=== PATIENT | female | born 1970 | race Caucasian/White ===

== ENCOUNTER 2022-07-19 12:38 | Emergency (ER) | payer OTHER, SELFPAY ==
[2022-07-19] VITALS (31 sets, daily range): BP systolic 106–189; BP diastolic 63–114; PULSE 52–70; TEMP 36.6; O2SAT 95–100; BMI 20.5
--- NOTE | 2022-07-19 13:37 | ED.CHESTPAIN ---
HPI - Chest Pain General Chief Complaint: Chest Pain Stated Complaint: Chest tightness/nausea Time Seen by Provider: 07/19/22 13:02 History of Present Illness HPI narrative: This 51-year-old female comes in reporting intermittent chest discomfort over the past week or so. She states that this pain is reproducible when taking a deep breath but also when exerting herself. She reports some associated nausea, lightheadedness. She does not report shortness of breath or diaphoresis. Prior to this she had good exercise tolerance. She does have a history of leukemia and underwent a bone marrow transplant at the beginning of this year about 10 months ago. She states that her pain is 8/10 in severity and is located in sternal area of her anterior chest. She also has some back pain. She did go to a chiropractor last week and receive some improvement with miss on edge in treatment of her mid upper back. She states that today this pain is been persistent but prior to today she was able to lay down and rest and her symptoms would resolve. Related Data Home Medications Medication Instructions Recorded Confirmed acyclovir 800 mg tablet mg 07/19/22 eltrombopag 50 mg tablet (Promacta) mg 07/19/22 fluoxetine 40 mg capsule mg 07/19/22 trazodone 50 mg tablet mg 07/19/22 Allergies Allergy/AdvReac Type Severity Reaction Status Date / Time codeine Allergy Unknown Verified 07/19/22 15:28 hydroxyzine [From Vistaril] Allergy Unknown Verified 07/19/22 15:28 meperidine [From Demerol] Allergy Unknown Verified 07/19/22 15:28 Review of Systems Status of ROS Reports: 10 or more systems reviewed and unremarkable except as noted in History and below Narrative Constitutional: No fevers, no weight gain or loss. Eyes: No discharge. No vision changes. HENT: No congestion, no sore throat, no ear pain. Cardiovascular: No palpitations. Chest pain as described above. Respiratory: No shortness of breath, no wheezes, no cough. Gastrointestinal: No abdominal pain, no vomiting, no diarrhea. Genitourinary: No dysuria, no hematuria. Musculoskeletal: Normal range of motion. She reports some pain in her upper mid back. Skin: No rashes, no pruritis. Neurological: No dizziness, weakness, sensory change, speech change. Endo/Heme/Allergies: No bruising or bleeding. No polydipsia. Pysch: no suicidality, no anxiety, no insomnia. All other systems reviewed and are negative. Exam Narrative Exam Narrative: Constitutional: Well-developed, well-nourished, no acute distress. HEENT: Normocephalic, atraumatic. Neck: Normal range of motion. Nontender. Supple. Heart: Regular. No murmurs. Normal rate. Intact distal pulses. Lungs: Clear to auscultation. No wheezes, rhonchi, or rales. Abdomen: Normal bowel sounds. Nontender. No rebound tenderness. Genitalia: Deferred. Back: No midline tenderness. Normal range of motion. Extremities: Normal range of motion. No injury. Skin: Intact. No rash. Warm. No erythema or pallor. Neurologic: No altered sensation. No weakness. Alert and oriented. Psychiatric: No suicidality. No anxiety or depression. No insomnia. Nursing notes and vitals signs are reviewed. Const Vital Signs, click to edit/add: Vital Signs - 24 hr 07/19/22 13:00 07/19/22 13:17 07/19/22 13:19 Temperature 97.8 F Pulse Rate 62 70 Pulse Rate [Right Pulse Oximeter] 63 Blood Pressure 159/87 H Blood Pressure [Right Upper Arm] 164/93 H Pulse Oximetry 100 98 99 Oxygen Delivery Method Room Air 07/19/22 13:45 07/19/22 13:20 07/19/22 13:30 Temperature Pulse Rate 60 64 Pulse Rate [Right Pulse Oximeter] Blood Pressure Blood Pressure [Right Upper Arm] Pulse Oximetry 98 100 98 Oxygen Delivery Method 07/19/22 13:32 07/19/22 14:00 07/19/22 14:02 Temperature Pulse Rate 62 64 65 Pulse Rate [Right Pulse Oximeter] Blood Pressure 163/89 H 154/88 H Blood Pressure [Right Upper Arm] Pulse Oximetry 98 98 97 Oxygen Delivery Method 07/19/22 14:03 07/19/22 14:30 07/19/22 14:32 Temperature Pulse Rate 68 64 67 Pulse Rate [Right Pulse Oximeter] Blood Pressure 156/87 H Blood Pressure [Right Upper Arm] Pulse Oximetry 97 98 96 Oxygen Delivery Method 07/19/22 15:00 07/19/22 15:02 07/19/22 15:06 Temperature Pulse Rate 52 L 59 L Pulse Rate [Right Pulse Oximeter] Blood Pressure 106/63 Blood Pressure [Right Upper Arm] Pulse Oximetry 96 96 Oxygen Delivery Method 07/19/22 15:30 07/19/22 15:34 07/19/22 15:54 Temperature Pulse Rate 68 70 66 Pulse Rate [Right Pulse Oximeter] Blood Pressure 189/106 H Blood Pressure [Right Upper Arm] Pulse Oximetry 100 97 97 Oxygen Delivery Method 07/19/22 16:00 07/19/22 16:02 07/19/22 16:30 Temperature Pulse Rate 67 68 59 L Pulse Rate [Right Pulse Oximeter] Blood Pressure 171/114 H Blood Pressure [Right Upper Arm] Pulse Oximetry 97 98 95 Oxygen Delivery Method Room Air 07/19/22 16:32 Temperature Pulse Rate 60 Pulse Rate [Right Pulse Oximeter] Blood Pressure 152/93 H Blood Pressure [Right Upper Arm] Pulse Oximetry 97 Oxygen Delivery Method Course Vital Signs Vital signs: Initial Vital Signs Temperature 97.8 F 07/19/22 13:00 Temperature Source Temporal Artery Scan 07/19/22 13:00 Pulse Rate 63 07/19/22 13:00 Blood Pressure 164/93 H 07/19/22 13:00 Blood Pressure Mean 116 07/19/22 13:00 Blood Pressure Position Sitting 07/19/22 13:00 Pulse Oximetry 100 07/19/22 13:00 Oxygen Delivery Method 07/19/22 13:00 Vital Signs Temperature 97.8 F 07/19/22 13:00 Pulse Rate 63 07/19/22 13:00 Blood Pressure 164/93 H 07/19/22 13:00 Pulse Oximetry 100 07/19/22 13:00 Oxygen Delivery Method 07/19/22 13:00 Temperature 97.8 F 07/19/22 13:00 Pulse Rate 60 07/19/22 16:32 Blood Pressure 152/93 H 07/19/22 16:32 Pulse Oximetry 97 07/19/22 16:32 Oxygen Delivery Method 07/19/22 16:02 MDM - Chest Pain MDM Narrative Medical decision making narrative: This patient comes in with severe chest pain that she rates that 8/10 in severity. She continues to have pain despite remaining still. In the past week she states that he was exercise induced but now today activity does not seem to make any difference. Her EKG returns with no sign of ST or T-wave abnormalities. Her initial troponin point of care returned elevated at 0.11. A repeat troponin returns at 0.13. Patient does have some back pain and there was concern for possible dissection or aneurysm. Additionally her D-dimer was elevated at 1.68. CT imaging of the chest abdomen and pelvis with contrast shows no evidence of pulmonary embolism, dissection, or aneurysm. The patient did receive 4 baby aspirins soon after arrival here. It was after clearance with CT imaging that she then received heparin according to ACS protocol for a non STEMI. She received a 4 mg morphine dose intravenously which did not provide much relief to her pain. This was repeated and again there was not much relief. Her blood pressure remained solid so a 3rd attempt at pain relief was made by giving Dilaudid 0.5 mg. Her blood pressure and decreased in to the 100-110 range after receiving this. Her blood pressure has improved now after some time and she then received an oral dose of nitroglycerin. Multiple calls in the surrounding area were made to arrange for transfer of this patient. There were no beds available except for [facility]. She is accepted for transfer there. Dr. Richey is the accepting physician. Lab Data Labs: Lab Results 07/19/22 07/19/22 07/19/22 Range/Units 13:35 13:48 13:48 WBC 3.73 L (4.50-11.00) K/uL RBC 3.20 L (4.00-5.20) m/uL Hgb 11.9 L (12.0-16.0) gm/dL Hct 36.5 (33.0-51.0) % MCV 114 H (80-100) fL MCH 37 H (26-34) pg MCHC 33 (32-36) gm/dL RDW Coeff of Andreas 14.3 (11.5-15.5) % Plt Count 71 L (140-440) K/uL Neut % (Auto) 68.2 (42.0-72.0) % Lymph % (Auto) 20.1 (20-44) % [place] % (Auto) 8.0 (0.0-11.0) % Eos % (Auto) 2.9 (0.0-7.0) % Baso % (Auto) 0.5 (0.0-3.0) % Neut # (Auto) 2.50 (1.7-7.0) K/uL Lymph # (Auto) 0.70 L (0.90-2.90) K/uL [place] # (Auto) 0.30 (0.00-0.90) K/UL Eos # (Auto) 0.10 (0.00-0.50) K/uL Baso # (Auto) 0.00 (0.00-0.30) K/uL Abs Immat Gran (auto) 0.00 (0.00-0.30) K/uL Imm/Tot Granulo (auto) 0.3 % INR (0.91-1.10) APTT (23-33) Seconds D-Dimer Quant (PE/DVT) 1.68 H (0.00-0.50) ug/ml Sodium (135-149) mmol/L Potassium (3.6-5.1) mmol/L Chloride (96-114) mmol/L Carbon Dioxide (20-32) mmol/L BUN (7-30) mg/dL Creatinine (0.5-1.5) mg/dL Estimated Creat Clear Estimated GFR ml/min Glucose (60-115) mg/dL Calcium (8.4-10.6) mg/dL Troponin I (0.01-0.04) ng/mL POC Troponin I 0.11 H (0.01-0.04) ng/ml 07/19/22 07/19/22 07/19/22 Range/Units 13:48 13:48 13:48 WBC (4.50-11.00) K/uL RBC (4.00-5.20) m/uL Hgb (12.0-16.0) gm/dL Hct (33.0-51.0) % MCV (80-100) fL MCH (26-34) pg MCHC (32-36) gm/dL RDW Coeff of Andreas (11.5-15.5) % Plt Count (140-440) K/uL Neut % (Auto) (42.0-72.0) % Lymph % (Auto) (20-44) % [place] % (Auto) (0.0-11.0) % Eos % (Auto) (0.0-7.0) % Baso % (Auto) (0.0-3.0) % Neut # (Auto) (1.7-7.0) K/uL Lymph # (Auto) (0.90-2.90) K/uL [place] # (Auto) (0.00-0.90) K/UL Eos # (Auto) (0.00-0.50) K/uL Baso # (Auto) (0.00-0.30) K/uL Abs Immat Gran (auto) (0.00-0.30) K/uL Imm/Tot Granulo (auto) % INR 0.81 L (0.91-1.10) APTT 34 H (23-33) Seconds D-Dimer Quant (PE/DVT) (0.00-0.50) ug/ml Sodium 138 (135-149) mmol/L Potassium 4.1 (3.6-5.1) mmol/L Chloride 103 (96-114) mmol/L Carbon Dioxide 26 (20-32) mmol/L BUN 14 (7-30) mg/dL Creatinine 0.7 (0.5-1.5) mg/dL Estimated Creat Clear 85.49 Estimated GFR 104 ml/min Glucose 109 (60-115) mg/dL Calcium 8.6 (8.4-10.6) mg/dL Troponin I 0.13 H* (0.01-0.04) ng/mL POC Troponin I (0.01-0.04) ng/ml Imaging Data CT Chest, Abd, Pelvis w contrast: Radiologist's impression: 1. No evidence of aortic aneurysm or dissection. 2. Subtle nodular ground-glass opacities scattered throughout the right lung and left lower lobe are likely infectious or inflammatory. Trace bilateral pleural effusions. 3. Two noncalcified pulmonary nodules measuring up to 4 mm. Please see follow-up guidelines below. 4. Distended gallbladder with pericholecystic fluid suggesting inflammation. Mild biliary dilation. Recommend further evaluation with right upper quadrant ultrasound. 5. Moderate amount of free fluid in the pelvis. ECG Data Attestation: I personally reviewed and interpreted this ECG as follows: Interpretation: Normal sinus rhythm. Rate is 60 beats per minute. There are no specific ST or T-wave abnormalities. Repeat EKG shows normal sinus rhythm with a rate of 67 beats per minute. There are no ST or T-wave abnormalities. Critical Care Time Critical Care Time Total Critical Care Time in Minutes: 45 Discharge Plan Discharge Clinical Impression: Acute non-ST elevation myocardial infarction (NSTEMI) Patient Disposition: Xfer Other Condition: Unchanged Prescriptions: No Action fluoxetine 40 mg capsule trazodone 50 mg tablet acyclovir 800 mg tablet Label Comments: TAKE 1 TABLET BY MOUTH FIVE TIMES DAILY. HOLD WHILE ON VALGANCYCLOVIR. Promacta 50 mg tablet Follow Up/Referrals: Provider,Not a Local [Primary Care Provider] - Stand Alone Forms: [facility] Info Instructions Procedures Ultrasound Aorta exam #1: Anatomical areas examined: abdominal aorta to bifurcation Impression: negative exam Ultrasound Cardiac exam #1: Anatomical areas examined: parasternal long and parasternal short Indications: chest pain Exam type: limited transthoracic echocardiogram Impression: negative exam
[2022-07-19] MEDS: ASPIRIN 81 MG TAB.CHEW 324 MG PO (13:41)
[2022-07-19] MEDS: ONDANSETRON 2 MG/ML inj 4 MG IVP (13:52)
[2022-07-19] MEDS: MORPHINE 4 MG/ML INJ IVP ×2 (13:55→14:24)
[2022-07-19 14:05] LABS: Troponin, Point-of-Care* 0.11 ng/ml (0.01-0.04)
[2022-07-19 14:07] LABS: Basophils Percent Auto 0.5 % (0.0-3.0); Eosinophils Percent Auto 2.9 % (0.0-7.0); Hematocrit 36.5 % (33.0-51.0); Hemoglobin* 11.9 gm/dL (12.0-16.0); Immature Granulocytes Pct Auto 0.3 %; Lymphocytes Percent Auto 20.1 % (20-44); Mean Corpuscular HGB Conc 33 gm/dL (32-36); Mean Corpuscular Hemoglobin 37 pg (26-34); Mean Corpuscular Volume 114 fL (80-100); Neutrophils Percent Auto 68.2 % (42.0-72.0); Platelet Count* 71 K/uL (140-440); RDW Coefficient of Variation % 14.3 % (11.5-15.5); White Blood Count* 3.73 K/uL (4.50-11.00)
[2022-07-19 14:18] LABS: Slide Review Reflex No
--- NOTE | 2022-07-19 14:19 | CRLHL7_ITS ---
For Patients: As a result of the 21st Century Cures Act, medical imaging exams and procedure reports are released immediately into your electronic medical record. You may view this report before your referring provider. If you have questions, please contact your health care provider. INDICATION: Chest pain, elevated troponin, family history of aneurysm. COMPARISON: None. TECHNIQUE: CT of the chest without IV contrast followed by CTA of the chest, abdomen, and pelvis with 95 cc of Isovue 370 IV contrast. Coronal and sagittal reconstructions. 3D post processing was performed. FINDINGS: Chest: Normal heart size. Conventional three vessel aortic arch. The great vessels are widely patent. The thoracic aorta is normal in caliber without evidence of dissection, intramural hematoma, or penetrating atheromatous ulcer. Moderate coronary artery calcifications. Normal caliber central pulmonary arteries. No large central pulmonary embolism. No pericardial effusion. No thoracic lymphadenopathy. Bilateral thyroid nodules measuring up to 1.1 cm in size on the right. Trace bilateral pleural effusions and bibasilar atelectasis. There are subtle nodular ground-glass opacities scattered throughout the right lung and left lower lobe which are likely infectious or inflammatory. No pneumothorax. Normal variant azygos fissure. 3 mm noncalcified pulmonary nodule in the posterior left lower lobe (series 5, image 53). 4 mm noncalcified pulmonary nodule in the anterior left lower lobe (image 69). No central endobronchial lesion or bronchial wall thickening. The bones are unremarkable. Abdomen/Pelvis: The abdominal aorta and bilateral iliac arteries are normal in caliber without evidence of dissection. The celiac artery, superior mesenteric artery, inferior mesenteric artery, and bilateral renal arteries are patent without significant stenosis. Mild to moderate calcified atheromatous plaque. Evaluation of the solid organs is somewhat limited by arterial phase of contrast. The liver, spleen, pancreas, and adrenal glands are negative. Distended gallbladder. No calcified gallstones are seen. There appears to be pericholecystic edema. Mild intra and extrahepatic bile duct dilation. Symmetric enhancement of the kidneys. No hydronephrosis or ureteral dilation. No obstructing urinary calculi identified. Decompressed urinary bladder. Unremarkable uterus. No adnexal mass. Postoperative changes of the stomach. No small bowel dilatation. Moderate amount of stool throughout the colon. The appendix is not identified. Moderate amount of free fluid in the pelvis. No intraperitoneal free air. No lymphadenopathy. The bones are unremarkable. IMPRESSION: 1. No evidence of aortic aneurysm or dissection. 2. Subtle nodular ground-glass opacities scattered throughout the right lung and left lower lobe are likely infectious or inflammatory. Trace bilateral pleural effusions. 3. Two noncalcified pulmonary nodules measuring up to 4 mm. Please see follow-up guidelines below. 4. Distended gallbladder with pericholecystic fluid suggesting inflammation. Mild biliary dilation. Recommend further evaluation with right upper quadrant ultrasound. 5. Moderate amount of free fluid in the pelvis. [employer] GUIDELINES - SOLID NODULES: : MULTIPLE LOW RISK - nodule less than 6 mm: No routine follow-up. - nodule 6-8 mm: CT at 3-6 months, then consider CT at 18-24 months. - nodule greater than 8 mm: CT at 3-6 months, then consider CT at 18-24 months. MULTIPLE HIGH RISK - nodule less than 6 mm: Optional CT at 12 months. - nodule 6-8 mm: CT at 3-6 months, then at 18-24 months. - nodule greater than 8 mm: CT at 3-6 months, then at 18-24 months. Please note that all CT scans at this facility use dose modulation, iterative reconstruction, and/or weight-based dosing when appropriate to reduce radiation dose to as low as reasonably achievable. Dictated by Kyung Parsons MD @ 07/19/2022 4:44:25 PM (Electronically Signed)
[2022-07-19 14:21] LABS: Chloride* 103 mmol/L (96-114); Potassium* 4.1 mmol/L (3.6-5.1); Sodium* 138 mmol/L (135-149)
[2022-07-19 14:24] LABS: Blood Urea Nitrogen* 14 mg/dL (7-30); Carbon Dioxide* 26 mmol/L (20-32); Creatinine* 0.7 mg/dL (0.5-1.5); Est. Creatinine Clearance* 85.49; Estimated Glomerular Filt Rate 104 ml/min
[2022-07-19 14:25] LABS: Calcium* 8.6 mg/dL (8.4-10.6); Glucose* 109 mg/dL (60-115)
[2022-07-19 14:34] LABS: D Dimer Quantitative* 1.68 ug/ml (0.00-0.50)
[2022-07-19] MEDS: HYDROmorphone 0.5 mg/0.5 ml inj IVP (14:52)
--- NOTE | 2022-07-19 15:14 | ED.NURSE ---
Report from Ishmael Snyder RN. I will now assume care of patient. Patient to radiology for CT scan via wheelchair. Will repeat EKG when she returns.
[2022-07-19 15:42] LABS: Troponin I* 0.13 ng/mL (0.01-0.04)
[2022-07-19 17:38] LABS: INR 0.81 (0.91-1.10); Prothrombin Time 11.7 Seconds
[2022-07-19 17:39] LABS: Partial Thromboplastin Time* 34 Seconds (23-33)
[2022-07-19] MEDS: HEPARIN 5,000 UNIT/0.5 ML INJ 3500 UNIT IVP (17:40)
[2022-07-19] MEDS: HEPARIN 25,000 UNIT/500 ML BAG 14 UNIT IV (17:41)
--- NOTE | 2022-07-19 17:57 | ED.NURSE ---
Report to DEANGELO Mack at [facility], Hossein CHANDLER (p [phone]). Facesheet faxed to [phone] as requested. EMS paged and to send ambulance now. Accepting , Dr. Dorantes, Bed #522.
[2022-07-19 18:01] LABS: SARS PCR* Negative SARS-CoV-2 (Negative)
== END 2022-07-19 18:33 | disposition other institution (70) ==
PROVIDERS: Emergency Provider Emergency Medicine Emergency Medical Services
DX: I21.4 Non-ST elevation (NSTEMI) myocardial infarction (principal)
CPT/HCPCS: 36415; 71270; 74177; 76604; 76705; 80048; 84484; 85025; 85379; 85610; 85730; 87635; 93005; 93308; 94761; 96361; 96374; 96375; 96376; 99285; 99291; A9270; J1170; J1644; J2270; J2405; Q9967

== ENCOUNTER 2022-07-19 18:21 | Outpatient (CLI) | payer OTHER, SELFPAY | END 2022-07-19 18:22 | disposition home or self-care (01) | LOC: AMB 07-29 08:03 | PROVIDERS: Visit Provider Internal Medicine | DX: I21.4 Non-ST elevation (NSTEMI) myocardial infarction (principal) | CPT/HCPCS: A0425; A0426 ==

== ENCOUNTER 2022-12-28 06:19 | Day surgery (SDC) | payer OTHER, SELFPAY ==
[2022-12-28] VITALS (8 sets, daily range): BP systolic 107–120; BP diastolic 58–74; PULSE 69–79; RESP 16; TEMP 37.1–37.4; O2SAT 96–100; BMI 20.9
[2022-12-28] MEDS: BUPIVACAINE 0.5% 30 ML INJECTION (07:00)
[2022-12-28] MEDS: ETHYL CHLORIDE 1 APPLICATION 1 APPLIC TOPICAL (07:00)
[2022-12-28] MEDS: BETAMETHASONE SOD PHOS/ACETATE 6 MG/ML ML INJECTION (07:00)
--- NOTE | 2022-12-28 07:35 | P.ORPRC_ITS ---
Procedure Note Date of procedure: 12/28/22 Procedure: PREOPERATIVE DIAGNOSIS: 1. Right thumb flexor tenosynovitis - trigger finger 2. Right de Quervain tenosynovitis POSTOPERATIVE DIAGNOSIS: 1. Right thumb flexor tenosynovitis - trigger finger 2. Right de Quervain tenosynovitis PROCEDURE: 1. Right thumb flexor tendon sheath open release (A1 dia) 2. Right DeQuervain's betamethasone cortisone injection (6 mg) SURGEON: Samir Sanchez MD. PHOTO GRAPHICS LIBRARIAN: Dennis Ding PA-C ANESTHESIA: Local anesthetic 4ml via 50:50 mixture of 1% Lidocaine with epi and 0.5% marcaine plain EBL: 2mL IMPLANTS: None TOURNIQUET: None COMPLICATIONS: None evident INDICATIONS: The patient is a pleasant 52-year-old female who has experienced right thumb catching/triggering for number of months. It has progressively gotten worse. Given the failure of nonoperative management, and how this affects daily life, surgery was recommended. DESCRIPTION OF PROCEDURE: Following a thorough discussion of risks, benefits, and alternatives consent was obtained and the operative digit(s) was marked. The patient was brought to the operating room and placed supine on the operating table. Local anesthesia induction was undertaken in preop holding. No antibiotics were administered as this was planned to be a local case only. Proper time-out was performed identifying proper patient, site, and procedure. The operative extremity was prepped and draped in the appropriate sterile fas hion using ChloraPrep. A incision was made on the palmar surface of the hand overlying the MCP joint region of the appropriate digit(s) respecting the palmar creases being cautious not to cross these perpendicularly. Sharp incision through the skin, and blunt dissection through subcutaneous tissue allowing protection of crossing neurologic structures. The A1 dia was visualized directly. It was incised sharply with a 15 blade. It was released completely from its distal to proximal extent under direct visualization. The tendon was inspected and found to be mildly striated consistent with some friction. Otherwise, it was intact. The tendon was removed out of the wound, and further inspected. The patient was asked to manually flex and extend the digits and showed no further catching. The catching, which was visualized initially, was no longer evident with reproduction of a manual fist and relaxation. Closure was performed with 4-O nylon in interrupted fashion. Soft dressings were applied, and the patient was transferred to the recovery room in stable condition. Of note, after sterile alcohol prep of the radial side of the right wrist and topical ethyl chloride spray, 6 mg betamethasone and 1 mL 0.5% bupivacaine plain was injected into the 1st dorsal extensor compartment sheath (DeQuervain's). She tolerated this well. Band-Aid applied. PLAN: 1. Encourage elevation of the operative extremity. 2. Range of motion of the fingers and hand/wrist as tolerated. 3. Ibuprofen/acetaminophen and/or Percocet as needed for pain control. 4. Follow up with PA visit in 12-16 days for wound check and suture removal.
--- NOTE | 2022-12-28 08:20 | SUR.PREOP ---
SAME DAY SURGERY LOCAL INJECTION SITE VERIFICATION WAS PERFORMED BY SURGEON/PA AND PATIENT PRIOR TO LOCAL ANESTHETIC BEING INJECTED TO OPERATIVE SITE.
== END 2022-12-28 08:14 | disposition home or self-care (01) ==
LOC: OR 06:20
PROVIDERS: Visit Provider Orthopaedic Surgery Sports Medicine
PROC: (CPT 26055; principal; 2022-12-28 07:15)
DX: M65.311 Trigger thumb, right thumb (principal); M65.4 Radial styloid tenosynovitis [de Quervain]; M65.841 Other synovitis and tenosynovitis, right hand
CPT/HCPCS: 26055; 20550; J0702; J3490

== ENCOUNTER 2023-05-23 10:56 | Outpatient (CLI) | payer OTHER, SELFPAY ==
[2023-05-23 13:32] LABS: Erythrocyte SedimentationRate* 57 mm/hr (2-20)
[2023-05-23 13:34] LABS: C Reactive Protein* < 0.5 mg/dL (0.5-1.0)
[2023-05-25 10:20] LABS: Anti-Nuclear Ab(ANA)IgG ELISA None Detected (None Detected)
== END 2023-05-23 10:57 | disposition home or self-care (01) ==
PROVIDERS: Visit Provider Orthopaedic Surgery Sports Medicine
DX: M25.50 Pain in unspecified joint (principal)
CPT/HCPCS: 36415; 85651; 86039; 86140; 86200; 86431

== ENCOUNTER 2024-01-17 11:15 | Outpatient (RCR) | payer OTHER, SELFPAY | END 2024-05-16 23:59 | disposition home or self-care (01) | PROVIDERS: Visit Provider Orthopaedic Surgery Sports Medicine | DX: M75.01 Adhesive capsulitis of right shoulder (principal); Z51.89 Encounter for other specified aftercare | CPT/HCPCS: 97110; 97140; 97161 ==

== ENCOUNTER 2025-04-06 21:28 | Emergency (ER) | payer OTHER, SELFPAY ==
[2025-04-06] VITALS (15 sets, daily range): BP systolic 93–98; BP diastolic 52–61; PULSE 78–100; RESP 16–20; TEMP 37–37.4; O2SAT 94–96; BMI 24.4
--- OUTSIDE RECORDS SUMMARY | 2025-04-06 21:30 | XMS_ITS | Encounter Summary ---
Author Organization [facility] Address [address] [place] [address]. [place] [address] Care Team Providers Care Circulation Worker Name Role Phone Larrymarychuy Yogesh Unavailable Yogesh Peraza MD Unavailable [phone] Tracy CovarrubiasSW Unavailable Yogesh Peraza MD Unavailable +[phone] Anyi Ha MD Unavailable [phone] Valdemar Thompson MD Unavailable Jenni Camacho APRN BUS INFO CONSULTANT Unavailable Isaac Hennessy PA-C Unavailable +[phone] Yogesh Peraza MD Unavailable +[phone] Yogesh Peraza MD Unavailable +[phone] Wendy Francis MD Unavailable [phone] Noemi Calle RN Unavailable Unavailable Wendy Francis MD Unavailable [phone] Carmela Palmer PA-C Primary Care Provider [phone] Ishmael Austin MD Unavailable Carmela Palmer PA-C Unavailable [phone] oRmie Smith PhD Unavailable [phone] Valdemar Thompson MD Unavailable Kera Gonzalez PA-C Unavailable [phone] Kera Gonzalez JOSE Unavailable [phone] Encounter Details Date Type Department Care Team (Late st Contact Info) Description 04/19/2024 MyC Medical Advice [facility] [address] 4[address] [place] [address] Margot Ramirez RN Social History Tobacco Use Types Packs/Day Years Used Date Smoking Tobacco: Former Cigarettes Q uit: 2005 Smokeless Tobacco: Never Alcohol Use Standard Drinks/Week Comments Yes 0 (1 standard drink = 0.6 oz pur e alcohol) Very rare Social Connection and Isolation Panel [NHANES] A nswer Date Recorded In a typical week, how many times do you talk on the phone with family, friends, or neighbors? Three times a week 12/13/2023 How often do you get togethe r with friends or relatives? Twice a week 12/13/2023 How often do you attend [facility] or christian services? Never 12/13/2023 Do you belong to any clubs o r organizations such as bahai groups, unions, fraternal or athletic groups, or school groups? No 12/13/2023 How often do you attend meet ings of the clubs or organizations you belong to? Never 12/13/2023 Are you , , di vorced, , never , or living with a partner? 12/13/2023 AUDIT-C Answer Date Recorded Q1: How often do you have a drink containing alcohol? Never 12/13/2023 Q2: How many drinks containi ng alcohol do you have on a typical day when you are drinking? Patient does not drink Q3: How often do you have si x or more drinks on one occasion? Never 12/13/2023 PHQ-2 Answer Date Recorded PHQ-2 Score 0 12/13/2023 [facility] of Occupat ional Health - Occupational Stress Questionnaire Answer Date Recorded Do you feel stress - tense, restless, nervous, or anxious, or unable to sleep at night because your mind is troubled all the time - these days? Only a little 12/13/2023 Exercise Vital Sign Answer Date Recorde d On average, how many days pe r week do you engage in moderate to strenuous exercise (like a brisk walk)? 3 days 12/13/2023 On average, how many minutes do you engage in exercise at this level? 20 min 12/13/2023 Adolescent Education Answer Date Record ed Getting School Help Needed Not on file 06/02 Food Insecurity Answer Date Recorded Within the past 12 months, d id you worry that your food would run out before you got money to buy more? No 12/13/2023 Within the past 12 months, d id the food you bought just not last and you didn t have money to get more? No 12/13/2023 Housing Stability Answer Date Recorded Do you have housing? (Harmeet g is defined as stable permanent housing and does not include staying outside in a car, in a tent, in an abandoned building, in an overnight retirement, or couch-surfing.) Yes 12/13/2023 Are you worried about losing your housing? No 12/13/2023 Financial Resource Strain Answer Date R ecorded Within the past 12 months, h ave you or your family members you live with been unable to get utilities (heat, electricity) when it was really needed? No 12/13/2023 Transportation Needs Answer Date Record ed Within the past 12 months, h as lack of transportation kept you from medical appointments, getting your medicines, non-medical meetings or appointments, work, or from getting things that you need? No 12/13/2023 Interpersonal Safety Answer Date Record ed Do you feel physically and e motionally safe where you currently live? Yes 12/13/2023 Within the past 12 months, h ave you been hit, slapped, kicked or otherwise physically hurt by someone? No 12/13/2023 Within the past 12 months, h ave you been humiliated or emotionally abused in other ways by your partner or ex-partner? No 12/13/2023 Comments No Sex and Gender Information Value Date Recorded Sex Assigned at Not on file Legal Sex Female 4:09 AM SUPERINTENDENT TESTS Gender Identity Not on file Sexual Orientation Not on file documented as of this encounter Plan of Treatment Not on file documented as of this encounter Visit Diagnoses Not on filedocumented in this encounter Care Teams Circulation Worker Relationship Specialty Start Date End Date Carmela Palmer PA-C [address] [place] [phone] PCP - General Family Medicine 12/13/23 Yogesh Lynch [address] [place], [place] 1199[address] Referring Physician Medical Oncology 07/22/21 Yogesh Peraza MD [address] [place] [address] 976156 BMT Physician Transplant 08/25/21 Tracy Covarrubias, [facility] Ash Collector BMT - Adult 08/30/21 06/15/24 Yogesh Peraza MD [address] [place] [address] 43728 Assigned Cancer Care Provider 10/24/21 Anyi Ha MD [facility] [place] [address] Assigned OBGYN Provider 03/19/22 Valdemar Thompson MD [address] [phone] Cardiovascular Disease 07/27/22 Jenni Camacho APRN BUS INFO CONSULTANT [address] [place] [address] 575455 Nurse Practitioner Hematology & Oncology 09/16/22 Isaac Hennessy PA-C [address] [place], [place] 945435 Assigned Heart and Vascular Provider 05/20/23 07/02/24 Yogesh Peraza MD [address] [place] [address] MD Hematology 06/21/23 Yogesh Peraza MD [address] [place] [address] MD Hematology 06/21/23 Wendy Francis MD [address] [place] [address] [phone] Physical Medicine and Rehabilitation 08/28/23 Noemi Calle, DEANGELO BMT Nurse Coordinator Transplant 11/20/23 Wendy Francis MD [address] [place] [address] [phone] Assigned Neuroscience Provider 11/24/23 Ishmael Austin MD [address] [place] [address] 209395 Dermatology 12/15/23 Carmela Palmer, PA-C [address] [place] [phone] Assigned PCP 01/02/24 Romie Smith, PhD [address] [place] [phone] Assigned Behavioral Health Provider 06/03/24 Valdemar Thompson MD [address] [place] [address] Assigned Heart and Vascular Provider 07/03/24 Kera Gonzalez PA-C Dermatology [address] [place] [address] 38827 Physician Beef Cattle Farm Worker Dermatology 11/08/24 Kera Gonzalez PA-C Dermatology [address] [place] [address] 6[address] Assigned Dermatology Provider 01/31/25 documented as of this encounter
--- OUTSIDE RECORDS SUMMARY | 2025-04-06 21:30 | XMS_ITS | Encounter Summary ---
Author Organization [facility] Address [address] [place] [address]. [place] [address] Care Team Providers Care Sawmill Moulder Operator Name Role Phone LarryYogesh perrin Unavailable Yogesh Peraza MD Unavailable [phone] Yogesh Peraza MD Unavailable [phone] Anyi Ha MD Unavailable [phone] Valdemar Thompson MD Unavailable Jenni Camacho APRN DISTRICT RESOURCE OFFICER Unavailable Yogesh Peraza MD Unavailable +[phone] Yogesh Peraza MD Unavailable [phone] Wendy Francis MD Unavailable [phone] Noemi Calle RN Unavailable Unavailable Wendy Francis MD Unavailable [phone] Carmela Palmer PA-C Primary Care Provider [phone] Ishmael Austin MD Unavailable Carmela Palmer PA-C Unavailable [phone] Romie Smith PhD Unavailable + [phone] Valdemar Thompson MD Unavailable Kera Gonzalez PA-C Unavailable +[phone] Kera Gonzalez PA-C Unavailable [phone] Reason for Visit * Reason Comments Medication Refill Encounter Details Date Type Department Care Team (Late st Contact Info) Description 11/19/2024 Refill [facility] [address] [place] [address] Carmela Palmer PA-C [address] [place] [address] Medication Refill Social History Tobacco Use Types Packs/Day Years [...] week 12/13/2023 How often do you attend chur or jew services? 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 Deanna Devine CMA on 11/25/2024 at 3:55 PM * Telephone Encounter - Chastity Roy - 11/19/2024 1:50 PM CDT LM for pt to return call to clinic Chastity Roy/Heavy Equipment Field Mechanic * Telephone Encounter - Carmela Palmer PA-C - 11/19/2024 10:25 AM CDT Due for preventative visit if we could call and get this scheduled. I did put in a refill of her medication for 90 days to allow for scheduling. Thanks! Carmela Palmer PA-C documented in this encounter Plan of Treatment Not on file documented as of this encounter Visit Diagnoses Diagnosis Mood changes Unspecified episodic mood disorder documented in this encounter Care Teams Sawmill Moulder Operator Relationship Specialty Start Date End Date Carmela Palmer PA-C [address] [place] [address] PCP - General Family Medicine 12/13/23 Yogesh Lynch [address] [place] [address] Referring Physician Medical Oncology 07/22/21 Yogesh Peraza MD [address] [place] [address] 645516 BMT Physician Transplant 08/25/21 Yogesh Peraza MD [address] [place] [address] 46596 Assigned Cancer Care Provider 10/24/21 Anyi Ha MD [address] [place] [address] Assigned OBGYN Provider 03/19/22 Valdemar Thompson MD [address] [phone] [place] [address] Cardiovascular Disease 07/27/22 Jenni Camacho APRN DISTRICT RESOURCE OFFICER [address] [place] [address] 858345 Nurse Practitioner Hematology & Oncology 09/16/22 Yogesh Peraza MD [address] [place] [address] 7[address] Hematology 06/21/23 Yogesh Peraza MD [address] [place] [address] 65624 Hematology 06/21/23 Wendy Francis MD [address] [place] [address] 9[address]11 Physical Medicine and Rehabilitation 08/28/23 Noemi Calle, DEANGELO BMT Nurse Coordinator Transplant 11/20/23 Wendy Francis MD [address] [place] [address] [phone] Assigned Neuroscience Provider 11/24/23 Ishmael Austin MD [address] [place] [address] 724925 Dermatology 12/15/23 Carmela Palmer PA-C [address] [place] [phone] Assigned PCP 01/02/24 Romie Smith, PhD [address] [place] [phone] Assigned Behavioral Health Provider 06/03/24 Valdemar Thompson MD [address] [facility] [address] [place], [place] 0[address]65 Assigned Heart and Vascular Provider 07/03/24 Kera Gonzalez PA-C Dermatology [address] [place] [address] [address] Patrol Dermatology 11/08/24 Kera Gonzalez PA-C Dermatology [address] [place] [address]196 Assigned Dermatology Provider 01/31/25 documented as of this encounter
--- OUTSIDE RECORDS SUMMARY | 2025-04-06 21:30 | XMS_ITS | Encounter Summary ---
Author Organization [place] Address [address] [place] [address]. [place] [address] Care Team Providers Care Statuary Painter Name Role Phone Larrymarychuy Yogesh Unavailable Yogesh Peraza MD Unavailable [phone] Tracy CovarrubiasSW Unavailable Yogesh Peraza MD Unavailable [phone] Anyi Ha MD Unavailable [phone] Valdemar Thompson MD Unavailable Jenni Camacho APRN SANITARY AIDE Unavailable Isaac Hennessy PA-C Unavailable +[phone] Yogesh Peraza MD Unavailable +[phone] Yogesh Peraza MD Unavailable +[phone] Wendy Francis MD Unavailable [phone] Noemi Calle RN Unavailable Unavailable Wendy Francis MD Unavailable [phone] Carmela Palmer PA-C Primary Care Provider [phone] Ishmael Austin MD Unavailable Carmela Palmer PA-C Unavailable [phone] Romei Smith PhD Unavailable [phone] Valdemar Thompson MD Unavailable Kera Gonzalez PA-C Unavailable [phone] CorbyKera richmond JOSE Unavailable [phone] Encounter Details Date Type Department Care Team (Late st Contact Info) Description 03/26/2024 Juanito Medical Advice [facility] Cancer [address] [address] Tasneem Bee Social History Tobacco Use Types Packs/Day Years [...] week 12/13/2023 How often do you attend [facility] or church services? Never 12/13/2023 Do you belong to any clubs o r organizations such as evangelical groups, unions, fraternal or athletic groups, or [...] Answer Date Recorded PHQ-2 Score 0 12/13/2023 [facility] [place] of Occupat ional Health - Occupational Stress [...] Answer Date Recorded Do you have housing? (Housin g is defined as stable permanent housing and does not include staying outside in a car, in a tent, in an abandoned building, in an overnight custodial, or couch-surfing.) Yes 12/13/2023 Are you worried [...] on file Legal Sex Female 4:09 AM FISH TECHNOLOGIST Gender Identity Not on file Sexual Orientation Not on file documented as of this encounter Plan of Treatment Not on file documented as of this encounter Visit Diagnoses Not on filedocumented in this encounter Care Teams Statuary Painter Relationship Specialty Start Date End Date Carmela Palmer PA-C [address] [place] [phone] PCP - General Family Medicine 12/13/23 Yogesh Lynch [address] [place], [place] 724586 Referring Physician Medical Oncology 07/22/21 Yogesh Peraza MD [address] [place] [address] [phone] BMT Physician Transplant 08/25/21 Tracy Covarrubias, [facility] Mine Car Repairer BMT - Adult 08/30/21 06/15/24 Yogesh Peraza MD [address] [place] [address] 95859 Assigned Cancer Care Provider 10/24/21 Anyi Ha MD [facility] [place] [address] Assigned OBGYN Provider 03/19/22 Valdemar Thompson MD [address] [phone] Cardiovascular Disease 07/27/22 Jenni Camacho APRN SANITARY AIDE [address] [place] [address] 491205 Nurse Practitioner Hematology & Oncology 09/16/22 Isaac Hennessy PA-C [address] [facility] [place], [place] 682[address] Assigned Heart and Vascular Provider 05/20/23 07/02/24 Ygoesh Peraza MD [address] [place] [address] MD Hematology 06/21/23 [place] [address] [place] [address] [facility] 06/21/23 Wendy Francis MD [address] [place] [address] 257965 Physical Medicine and Rehabilitation 08/28/23 Noemi Calle, DEANGELO BMT Nurse Coordinator Transplant 11/20/23 Wendy Francis MD [address] [place] [address] 847215 Assigned Neuroscience Provider 11/24/23 Ishmael Austin MD [address] [place] [address] 753825 Dermatology 12/15/23 Carmela Palmer, PA-C [address] [place] [phone] Assigned PCP 01/02/24 Romie Smith, PhD [address] [place] [phone] Assigned Behavioral Health Provider 06/03/24 Valdemar Thompson MD [address] [facility] [address] [place] [address] Assigned Heart and Vascular Provider 07/03/24 Kera Gonzalez PA-C Dermatology [address] [place] [address]01 Physician Seam Press Operator Dermatology 11/08/24 Kera Gonzalez PA-C Dermatology [address] [place] [address] 71313 Assigned Dermatology Provider 01/31/25 documented as of this encounter
--- OUTSIDE RECORDS SUMMARY | 2025-04-06 21:30 | XMS_ITS | Encounter Summary ---
Author Organization [place] Address [address] [place] [place] [address] Care Team Providers Care Acid Painter Name Role Phone Syed Yogesh Unavailable Yogesh Peraza MD Unavailable [phone] Tracy Coavrrubias [facility] Unavailable Yogesh Peraza MD Unavailable +[phone] Leeanne Pickard APRN WASHERY ENGINEER Unavailable Anyi Ha MD Unavailable [phone] Leeanne Pickard APRN WASHERY ENGINEER Primary Care Provider + Valdemar Thompson MD Unavailable Jenni Camacho PRESSROOM FOREMAN WASHERY ENGINEER Unavailable Mario Tsagn RN Unavailable Unavailable Isaac Hennessy PA-C Unavailable [phone] Yogesh Peraza MD Unavailable [phone] Yogesh Peraza MD Unavailable [phone] Wendy Francis MD Unavailable [phone] [facility] Unavail able Noemi Calle RN Unavailable Unavailable Wendy Francis MD Unavailable [phone] Carmela PalmerC Primary Care Provider [phone] Ishmael Austin MD Unavailable Carmela Palmer PA-C Unavailable [phone] Romie Smith PhD Unavailable [phone] Valdemar Thompson MD Unavailable Kera Gonzalez PA-C Unavailable + [phone] Kera Gonzalez PA-C Unavailable [phone] Encounter Details Date Type Department Care Team (Late st Contact Info) Description 09/12/2023 MyC Medical Advice [facility] [address] [place] [address] Tracy Blackmon RN Social History Tobacco Use Types Packs/Day Years Used Date Smoking Tobacco: Former Cigarettes Q uit: 2004 Smokeless Tobacco: Never Alcohol Use Standard Drinks/Week Comments Yes 0 (1 standard drink = 0.6 oz pur e alcohol) Very rare Humiliation, Afraid, Rape, and Kick questionnair e Answer Date Recorded Within the last year, have y ou been afraid of your partner or ex-partner? No 05/03/2022 Within the last year, have y ou been humiliated or emotionally abused in other ways by your partner or ex-partner? No Within the last year, have y ou been kicked, hit, slapped, or otherwise physically hurt by your partner or ex-partner? No 05/03/2022 Within the last year, have y ou been raped or forced to have any kind of sexual activity by your partner or ex-partner? 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 Gender Identity Not on file Sexual Orientation Not on file documented as of this encounter Plan of Treatment Not on file documented as of this encounter Visit Diagnoses Not on filedocumented in this encounter Care Teams Acid Painter Relationship Specialty Start Date End Date Leeanne Pickard APRN WASHERY ENGINEER PCP - General Family Medicine 07/27/22 11/09/23 Carmela Palmer PA-C [address] [place] [address] PCP - General Family Medicine 12/13/23 Yogesh Lynch [address] [place] [address] Referring Physician Medical Oncology 07/22/21 Yogesh Peraza MD Counts include [facility] beds at the [facility] [place] [address] BMT Physician Transplant 08/25/21 [facility] Felt Checker B[facility] - Adult 08/30/21 06/15/24 Yogesh Peraza MD [address] [place] [address] 68085 Assigned Cancer Care Provider 10/24/21 Leeanne Pickard APRN WASHERY ENGINEER Assigned PCP 12/10/21 10/04/23 Anyi Ha MD [address] [place] [address] Assigned OBGYN Provider 03/19/22 Valdemar Thompson MD [address] [facility] [address] [place] 9[address]275 Cardiovascular Disease 07/27/22 Jenni Camacho APRN CNP [address] [place] [address] 15748 Nurse Practitioner Hematology & Oncology 09/16/22 [facility] Trans[facility] 06/07/23 11/19/23 Isaac Hennessy, PALavelleC [address] [place] [address] Assigned Heart and Vascular Provider 05/20/23 07/02/24 Yogesh Peraza MD [address] [place] [address] 46566 Hematology 06/21/23 Yogesh Peraza MD [address] [place] [address] 03607 Hematology 06/21/23 Wendy Francis MD [address] [place] [address] 834085 Physical Medicine and Rehabilitation 08/28/[address] [address] Assigned PCP 10/05/23 01/01/24 Noemi Calle, DEANGELO BMT Nurse Coordinator Transplant 11/20/23 Wendy Francis MD [address] [place] [address] 073515 Assigned Neuroscience Provider 11/24/23 Ishmael Austin MD [address] [place] [address] 447955 Dermatology 12/15/23 Carmela Palmer PA-C [address] [place] [phone] Assigned PCP 01/02/24 Romie Smith, PhD [address] [place] [phone] Assigned Behavioral Health Provider 06/03/24 Valdemar Thompson MD [address] 017005 Assigned Heart and Vascular Provider 07/03/24 Kera Gonzalez PA-C Dermatology [address] [place] [address]117 Physician Head Up Operator Helper Dermatology 11/08/24 Kera Gonzalez PA-C Dermatology [address] [place] [address] Assigned Dermatology Provider 01/31/25 documented as of this encounter
--- OUTSIDE RECORDS SUMMARY | 2025-04-06 21:30 | XMS_ITS | Encounter Summary ---
Author Organization [place] Address [address] [place] [address]. [place] [address] Care Team Providers Care Imaging Scheduler Name Role Phone LarryYogesh perrin Unavailable Yogesh Peraza MD Unavailable [phone] Yogesh Peraza MD Unavailable +[phone] Anyi Ha MD Unavailable [phone] Valdemar Thompson MD Unavailable Jenni Camacho APRN INFORMATION SECURITY SPECIALIST Unavailable Yogesh Peraza MD Unavailable +[phone] Yogesh Peraza MD Unavailable +[phone] Wendy Francis MD Unavailable [phone] Noemi Calle RN Unavailable Unavailable Wendy Francis MD Unavailable [phone] Carmela Palmer PA-C Primary Care Provider + [phone] Ishmael Austin MD Unavailable Carmela Palmer PA-C Unavailable [phone] Romie Smith PhD Unavailable + [phone] Valdemar Thompson MD Unavailable Kera Gonzalez PA-C Unavailable +[phone] Kera Gonzalez PA-C Unavailable + [phone] Encounter Details Date Type Department Care Team (Late st Contact Info) Description 01/28/2025 Results Follow-Up [facility] [address] [place] [address] Carmela Palmer PA-C [address] [place] [address] Subj: Message about your results Social History Tobacco Use Types Packs/Day Years Used Date Smoking Tobacco: Former Cigarettes Q uit: 2005 Smokeless Tobacco: Never Alcohol Use Standard Drinks/Week Comments Yes 0 (1 standard drink = 0.6 oz pur e alcohol) Very rare Social Connection and Isolation Panel [NHANES] A nswer Date Recorded Frequency of Communication with Friends and Fami ly Not on file 01/28/2025 How often do you get together with friends or re latives? Once a week 01/28/2025 Attends Mandaeism Services Not on file 01/28 Active Member of Clubs or Organizations Not on f ile 01/28/2025 Attends Club or Organization Meetings Not on sara e 01/28/2025 Marital Status Not on file 01/28/2025 AUDIT-C Answer Date Recorded Q1: How often do you have a drink containing alcohol? Never 12/13/2023 Q2: How many drinks containi ng alcohol do you have on a typical day when you are drinking? Patient does not drink Q3: How often do you have si x or more drinks on one occasion? Never 12/13/2023 PHQ-2 Answer Date Recorded PHQ-2 Score 0 01/16/2025 [facility] [place] of Occupat ional Health - Occupational Stress Questionnaire Answer Date Recorded Do you feel stress - tense, restless, nervous, or anxious, or unable to sleep at night because your mind is troubled all the time - these days? Only a little 01/28/2025 Exercise Vital Sign Answer Date Recorde d On average, how many days pe r week do you engage in moderate to strenuous exercise (like a brisk walk)? 2 days Minutes of Exercise per Session Not on file 01/28/2025 Adolescent Education Answer Date Record ed Getting School Help Needed Not on file 06/02 Food Insecurity Answer Date Recorded Within the past 12 months, d id you worry that your food would run out before you got money to buy more? No 01/28/2025 Within the past 12 months, d id the food you bought just not last and you didn t have money to get more? No 01/28/2025 Housing Stability Answer Date Recorded Do you have housing? (Harmeet wagoner is defined as stable permanent housing and does not include staying outside in a car, in a tent, in an abandoned building, in an overnight longterm, or couch-surfing.) Yes 01/28/2025 Are you worried about losing your housing? No 01/28/2025 Financial Resource Strain Answer Date R ecorded Within the past 12 months, h ave you or your family members you live with been unable to get utilities (heat, electricity) when it was really needed? No 01/28/2025 Transportation Needs Answer Date Record ed Within the past 12 months, h as lack of transportation kept you from medical appointments, getting your medicines, non-medical meetings or appointments, work, or from getting things that you need? No 01/28/2025 Interpersonal Safety Answer Date Record ed Do you feel physically and e motionally safe where you currently live? Yes 01/28/2025 Within the past 12 months, h ave you been hit, slapped, kicked or otherwise physically hurt by someone? No 01/28/2025 Within the past 12 months, h ave you been humiliated or emotionally abused in other ways by your partner or ex-partner? 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 Gender Identity Not on file Sexual Orientation Not on file documented as of this encounter Plan of Treatment Not on file documented as of this encounter Visit Diagnoses Not on filedocumented in this encounter Care Teams Imaging Scheduler Relationship Specialty Start Date End Date Carmela Palmer PA-C [address] [place] [address] PCP - General Family Medicine 12/13/23 Yogesh Lynch [facility] [place] [address] Referring Physician Medical Oncology 07/22/21 Yogesh Peraza MD [address] [place] [address] BMT Physician Transplant 08/25/21 Yogesh Peraza MD [address] [place] [address] Assigned Cancer Care Provider 10/24/21 Anyi Ha MD [address] [place] [address] Assigned OBGYN Provider 03/19/22 [place] [address] [place] [address]46 Cardiovascular Disease 07/27/22 Jenni Camacho APRN INFORMATION SECURITY SPECIALIST [address] [place] [address] 515235 Nurse Practitioner Hematology & Oncology 09/16/22 Yogesh Peraza MD [address] [place] [address] Hematology 06/21/23 Yogesh Peraza MD [address] [place] [address]87 Hematology 06/21/23 Wendy Francis MD [address] [place] [address] 995895 Physical Medicine and Rehabilitation 08/28/23 Noemi Calle, RN BMT Nurse Coordinator Transplant 11/20/23 Wendy Francis MD [address] [place] [address] Assigned Neuroscience Provider 11/24/23 Ishmael Austin MD [address] [place] [address]47 Dermatology 12/15/23 Carmela Palmer PA-C [address] [place] [address] Assigned PCP 01/02/24 Romie Smith, PhD [address] [place] [phone] Assigned Behavioral Health Provider 06/03/24 Valdemar Thompson MD [address] [address] Assigned Heart and Vascular Provider 07/03/24 Kera Gonzalez PA-C [facility] [address] [place] [address]103 Physician Oncology Rep Dermatology 11/08/24 Kera Gonzalez PA-C [facility] [address] [place] [address] Assigned Dermatology Provider 01/31/25 documented as of this encounter
--- OUTSIDE RECORDS SUMMARY | 2025-04-06 21:30 | XMS_ITS | Encounter Summary ---
Author Organization [place] Address [facility] [place] [address] Care Team Providers Care Numerical Control Machine Operator Name Role Phone DiliayayoYogesh Unavailable Yogesh Peraza MD Unavailable [phone] Tracy Covarrubias [facility] Unavailable Yogesh Peraza MD Unavailable [phone] Ref-Primary, Physician Primary Care Provider Leeanne Pickard APRN FLAT SURFACER Unavailable Anyi Ha MD Unavailable [phone] Leeanne Pickard VICE PRESIDENT OF ADVERTISING FLAT SURFACER Primary Care Provider + Valdemar Thompson MD Unavailable Valdemar Thompson MD Unavailable Galo Yun RN Unavailable [phone] Jenni Camacho VICE PRESIDENT OF ADVERTISING FLAT SURFACER Unavailable Jenni Camacho VICE PRESIDENT OF ADVERTISING FLAT SURFACER Unavailable Mario Tsang RN Unavailable Unavailable Isaac Hennessy PA-C Unavailable [phone] Yogesh Peraza MD Unavailable +[phone] Yogesh Peraza MD Unavailable +[phone] Wendy Francis MD Unavailable [phone] [facility] Unavail able Noemi Calle RN Unavailable Unavailable Wendy Francis MD Unavailable [phone] Carmela Palmer PA-C Primary Care Provider Ishmael Austin MD Unavailable Carmela Palmer PA-C Unavailable [phone] Romie Smith PhD Unavailable [phone] Valdemar Thompson MD Unavailable Kera Gonzalez PA-C Unavailable +[phone] Kera Gonzalez PA-C Unavailable [phone] Encounter Details Date Type Department Care Team (Late st Contact Info) Description 12/27/2021 MyC Medical Advice [facility] Blood and Marrow Transplant Program [address] [address] Rosmery Espinoza Social History Tobacco Use Types Packs/Day Years Used Date Smoking Tobacco: Former Cigarettes Q uit: 2004 Smokeless Tobacco: Never PHQ-2 Answer Date Recorded PHQ-2 Score 0 08/27/2021 Comments No Sex and Gender Information Value Date Recorded Sex Assigned at Not on file Legal Sex Female 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 No / Unsure 12/28/2021 10:46 AM CDT documented as of this encounter Plan of Treatment Not on file documented as of this encounter Visit Diagnoses Not on filedocumented in this encounter Additional Health Concerns Infection Onset Date Last Indicated Resolved Time Rule Out C-difficile 01/10/2022 01/10/2022 022 8:47 PM CDT Rule Out COVID-19 03/07/2022 03/07/2022 03/07/2022 8:27 PM CDT Rule Out COVID-19 06/16/2022 06/16/2022 06/16/2022 1:15 PM CDT Rule Out COVID-19 09/30/2022 09/30/2022 09/30/2022 10:10 PM FINANCIAL ANALYST INTERN Rule Out Pertussis 01/15/2023 01/17/2023 8:11 AM CDT Rule Out COVID-19 01/17/2023 01/17/2023 02/07/2023 11:39 PM CDT documented as of this encounter Care Teams Numerical Control Machine Operator Relationship Specialty Start Date End Date No Ref-Primary, Physician PCP - General 12/17/21 07/26/22 Leeanne Pickard APRN FLAT SURFACER PCP - General Family Medicine 07/27/22 11/09/23 Carmela Palmer PA-C [address] [place] [address] PCP - General Family Medicine 12/13/23 Yogesh Lynch [address] [place] [address] [phone] Referring Physician Medical Oncology 07/22/21 Yogesh Peraza MD [address] [place], [place] 236326 BMT Physician Transplant 08/25/21 Tracy Covarrubias [facility] Shift Nurse Manager BMT - Adult 08/30/21 06/15/24 Yogesh Peraza MD [address] [place], [place] 002876 Assigned Cancer Care Provider 10/24/21 Leeanne Pickard APRN FLAT SURFACER Assigned PCP 12/10/21 10/04/23 Anyi Ha MD [address] [place] [address] Assigned OBGYN Provider 03/19/22 Valdemar Thompson MD [address] [facility] [address] [place] [address] Cardiovascular Disease 07/27/22 Valdemar Thompson MD [address] [facility] [address] [place] [address] Assigned Heart and Vascular Provider 08/06/22 05/19/23 Galo Yun RN Specialty Physician Allergist Immunologist BMT - Adult 09/16/22 06/06/23 Jenni Camacho APRN FLAT SURFACER [address] 634885 Nurse Practitioner Hematology & Oncology 09/16/22 Jenni Camacho APRN FLAT SURFACER [address] [address] Nurse Practitioner Hematology & Oncology 09/16/22 Mario Tsang RN BMT Nurse Coordinator Transplant 06/07/23 11/19/23 Isaac Hennessy, PA-C [address]405 [place] [address] Assigned Heart and Vascular Provider 05/20/23 07/02/24 Yogesh Peraza MD [address] [place] [address] Hematology 06/21/23 Yogesh Peraza MD [address] [place] [address] Hematology 06/21/23 Wendy Francis MD [address] [place] [address] Physical Medicine and Rehabilitation 08/28/23 [facility] [address] [place], [place] [phone] Assigned PCP 10/05/23 01/01/24 Noemi Calle, RN BMT Nurse Coordinator Transplant 11/20/23 Wendy Francis MD [address] [place] [address] 855965 Assigned Neuroscience Provider 11/24/23 Ishmael Austin MD [address] [place] [address] 035455 Dermatology 12/15/23 Carmela Palmer, PA-C [address] [place] [phone] Assigned PCP 01/02/24 Romie Smith, PhD [address] [place] [phone] Assigned Behavioral Health Provider 06/03/24 Valdemar Thompson MD [address] [facility] [address] [place] [phone] Assigned Heart and Vascular Provider 07/03/24 Kera Gonzalez PA-C Dermatology [address] [place] [address] Physician Recruiting Administrator Dermatology 11/08/24 Kera Gonzalez PA-C Dermatology [address] [place] [address] Assigned Dermatology Provider 01/31/25 documented as of this encounter
--- OUTSIDE RECORDS SUMMARY | 2025-04-06 21:30 | XMS_ITS | Encounter Summary ---
Author Organization [place] Address [address] [facility] [place] [address] Care Team Providers Care Overweaver Name Role Phone Syed Yogesh Unavailable Yogesh Peraza MD Unavailable [phone] Tracy Covarrubias [facility] Unavailable Yogesh Peraza MD Unavailable +[phone] Leeanne Pickard APRN COMMAND CENTER ANALYST Unavailable Anyi Ha MD Unavailable [phone] Leeanne Pickard APRN COMMAND CENTER ANALYST Primary Care Provider + Valdemar Thompson MD Unavailable Jenni Camacho RN [place] COMMAND CENTER ANALYST Unavailable Mario Tsang RN Unavailable Unavailable Isaac Hennessy PA-C Unavailable [phone] Yogesh Peraza MD Unavailable [phone] Yogesh Peraza MD Unavailable [phone] Wendy Francis MD Unavailable [phone] [facility] Unavail able Noemi Calle RN Unavailable Unavailable Wendy Francis MD Unavailable [phone] Carmela PalmerC Primary Care Provider [phone] Ishmael Austin MD Unavailable Carmela Palmer PA-C Unavailable [phone] Romie Smith PhD Unavailable [phone] Valdemar Thompson MD Unavailable Kera Gonzalez PA-C Unavailable [phone] Kera Gonzalez PA-C Unavailable [phone] Encounter Details Date Type Department Care Team (Late st Contact Info) Description 08/28/2023 [facility] Cancer [place] [address] [place] [address] Tasneem Bee Social History Tobacco Use [...] on file Legal 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 Gender Identity Not on file Sexual Orientation Not on file documented as of this encounter Plan of Treatment Not on file documented as of this encounter Visit Diagnoses Not on filedocumented in this encounter Care Teams Overweaver Relationship Specialty Start Date End Date Leeanne Pickard APRN COMMAND CENTER ANALYST PCP - General Family Medicine 07/27/22 11/09/23 Carmela Palmer PA-C [address] [place] [address] PCP - General Family Medicine 12/13/23 Yogesh Lynch [address] [place] [address] Referring Physician Medical Oncology 07/22/21 Yogesh Peraza MD [facility] [place] [address] BMT Physician Transplant 08/25/21 [facility] Fiction And Nonfiction Writer Prose BMT - Adult 08/30/21 06/15/24 Yogesh Peraza MD [address] [place] [address] Assigned Cancer Care Provider 10/24/21 Leeanne Pickard APRN COMMAND CENTER ANALYST Assigned PCP 12/10/21 10/04/23 Anyi Ha MD [address] [place], [place] 771637 Assigned OBGYN Provider 03/19/22 Valdemar Thompson MD [address] [facility] [address] [place] 0[address]15 Cardiovascular Disease 07/27/22 Jenni Camacho APRN CNP [address] [place] [address] Nurse Practitioner Hematology & Oncology 09/16/22 [facility] Nurse Coordinator Transplant 06/07/23 11/19/23 Isaac Hennessy PA-C [address] [place] [address] Assigned Heart and Vascular Provider 05/20/23 07/02/24 Yogesh Peraza MD [address] [place] [address] Hematology 06/21/23 Yogesh Peraza MD [address] [place] [address] Hematology 06/21/23 Wendy Francis MD [address] [place] [address] 555195 Physical Medicine and Rehabilitation 08/28/[address] [address] Assigned PCP 10/05/23 01/01/24 Noemi Calle, DEANGELO BMT Nurse Coordinator Transplant 11/20/23 Wendy Francis MD [address] [place] [address] 881125 Assigned Neuroscience Provider 11/24/23 Ishmael Austin MD [address] [place] [address] 810535 Dermatology 12/15/23 Carmela Palmer PA-C [address] [place] [phone] Assigned PCP 01/02/24 Romie Smith, PhD [address] [place] [phone] Assigned Behavioral Health Provider 06/03/24 Valdemar Thompson MD [address] [facility] [address] [place], [place] 208755 Assigned Heart and Vascular Provider 07/03/24 Kera Gonzalez PA-C Dermatology [address] [place] [address] Physician Kitchenwhere Maker Dermatology 11/08/24 Kera Gonzalez PA-C Dermatology [address] [place] [address] Assigned Dermatology Provider 01/31/25 documented as of this encounter
--- OUTSIDE RECORDS SUMMARY | 2025-04-06 21:30 | XMS_ITS | Encounter Summary ---
Author Organization [place] Address [address] [place] [address]. [place] [address] Care Team Providers Care Building Tech Name Role Phone LarryYogesh perrin Unavailable Yogesh Peraza MD Unavailable [phone] Yogesh Peraza MD Unavailable +[phone] Anyi Ha MD Unavailable [phone] Valdemar Thompson MD Unavailable Jenni Camacho APRN NEEDLE GRINDER Unavailable Yogesh Peraza MD Unavailable +[phone] Yogesh Peraza MD Unavailable +[phone] Wendy Francis MD Unavailable [phone] Noemi Calle RN Unavailable Unavailable Wendy Francis MD Unavailable [phone] Carmela Palmer PA-C Primary Care Provider + [phone] Ishmael Austin MD Unavailable Carmela Palmer PA-C Unavailable [phone] Romie Smith PhD Unavailable [phone] Valdemar Thompson MD Unavailable Kera Gonzalez PA-C Unavailable +[phone] Kera Gonzalez PA-C Unavailable [phone] Encounter Details Date Type Department Care Team (Late st Contact Info) Description 01/23/2025 Results Follow-Up [address] [address] Kera Gonzalez PA-C Dermatology [address] [place] [address] Subj: Message about your results Social History [...] re latives? 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 Gender Identity Not on file Sexual Orientation Not on file documented as of this encounter Plan of Treatment Not on file documented as of this encounter Visit Diagnoses Not on filedocumented in this encounter Care Teams Building Tech Relationship Specialty Start Date End Date Carmela Palmer PA-C [address] [place] [address] PCP - General Family Medicine 12/13/23 Yogesh Lynch [address] [place] [address] Referring Physician Medical Oncology 07/22/21 Yogesh Peraza MD [address] [place] [address] BMT Physician Transplant 08/25/21 Yogesh Peraza MD [address] [place] [address] Assigned Cancer Care Provider 10/24/21 Anyi Ha MD [address] [place], [place] 598287 Assigned OBGYN Provider 03/19/22 Valdemar Thompson MD [address] [facility] [address] [place], [place] 459265 Cardiovascular Disease 07/27/22 Jenni Camacho APRN NEEDLE GRINDER [address] [place] [address] Nurse Practitioner Hematology & Oncology 09/16/22 Yogesh Peraza MD [facility] [place] [address] Hematology 06/21/23 Yogesh Peraza MD [facility] [place] [address] Hematology 06/21/23 Wendy Francis MD [address] [place] [address] [place] [address] Physical Medicine and Rehabilitation 08/28/23 Noemi aClle, RN BMT Nurse Coordinator Transplant 11/20/23 Wendy Francis MD [address] [place] [address] Assigned Neuroscience Provider 11/24/23 Ishmael Austin MD [address] [place] [address] Dermatology 12/15/23 Carmela Palmer PA-C [address] [place] [address] Assigned PCP 01/02/24 Romie Smith, PhD [address] [place] [phone] Assigned Behavioral Health Provider 06/03/24 Valdemar Thompson MD [address] [facility] [address] [place] [address] Assigned Heart and Vascular Provider 07/03/24 Kera Gonzalez PA-C Dermatology [address] [place] [address] Physician Home Sales Service Professional Dermatology 11/08/24 Kera Gonzalez PA-C Dermatology [address] [place] [address] Assigned Dermatology Provider 01/31/25 documented as of this encounter
--- OUTSIDE RECORDS SUMMARY | 2025-04-06 21:30 | XMS_ITS | Encounter Summary ---
Author Organization [place] Address [facility] [place] [address] Care Team Providers Care Rubber Compounder Formulator Name Role Phone Larrymarychuy Yogesh Unavailable Yogesh Peraza MD Unavailable [phone] Yogesh Peraza MD Unavailable +[phone] Anyi Ha MD Unavailable [phone] Valdemar Thompson MD Unavailable + Jenni Camacho APRN SALES AND SERVICE CHANGE LEADER Unavailable Isaac Hennessy PA-C Unavailable +[phone] Yogesh Peraza MD Unavailable +[phone] Yogesh Peraza MD Unavailable [phone] Wendy Francis MD Unavailable [phone] Noemi Calle RN Unavailable Unavailable Wendy Francis MD Unavailable [phone] Carmela Palmer PA-C Primary Care Provider [phone] Ishmael Austin MD Unavailable Carmela Palmer PA-C Unavailable [phone] Romie Smith PhD Unavailable [phone] Valdemar Thompson MD Unavailable Kera Gonzalez PA-C Unavailable [phone] Kera GonzalezC Unavailable Encounter Details Date Type Department Care Team (Late st Contact Info) Description 06/28/[address] [facility] Gastroenterology Clinic [address] 4[address] [place] [phone] Lissett Bender Social History Tobacco Use Types Packs/Day Years [...] How often do you attend chur or pentecostal services? 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 Gender Identity Not on file Sexual Orientation Not on file documented as of this encounter Plan of Treatment Not on file documented as of this encounter Visit Diagnoses Not on filedocumented in this encounter Care Teams Rubber Compounder Formulator Relationship Specialty Start Date End Date Carmela Palmer PA-C [address] [place] [phone] PCP - General Family Medicine 12/13/23 Yogesh Lynch [address] [place] [address] Referring Physician Medical Oncology 07/22/21 Yogesh Peraza MD [address] [place] [address] BMT Physician Transplant 08/25/21 Yogesh Peraza MD [address] [place] [address] Assigned Cancer Care Provider 10/24/21 Anyi Ha MD [facility] [place] [address] Assigned OBGYN Provider 03/19/22 [place] [address] [place] [address] 208815 Cardiovascular Disease 07/27/22 Jenni Camacho APRN SALES AND SERVICE CHANGE LEADER [address] [place] [address] 546575 Nurse Practitioner Hematology & Oncology 09/16/22 Isaac Hennessy PA-C [address]405 [place], [place] 986995 Assigned Heart and Vascular Provider 05/20/23 07/02/24 Yogesh Peraza MD [address] [place] [address] Hematology 06/21/23 Yogesh Peraza MD [address] [place] [address] Hematology 06/21/23 Wendy Francis MD [address] [place] [address] Physical Medicine and Rehabilitation 08/28/23 Noemi Calle, DEANGELO BMT Nurse Coordinator Transplant 11/20/23 Wendy Francis MD [address] [place] [address] 881175 Assigned Neuroscience Provider 11/24/23 Ishmael Austin MD [address] [place] [address] 229[address] Dermatology 12/15/23 Carmela Palmer PA-C [address] [place] [address]518[address] Assigned PCP 01/02/24 Romie Smith, PhD [address] [place] [phone] Assigned Behavioral Health Provider 06/03/24 Valdemar Thompson MD [address] 897755 Assigned Heart and Vascular Provider 07/03/24 Kera Gonzalez PA-C Dermatology [address] [place] [address] Physician Paralegal Legal Secretary Dermatology 11/08/24 Kera Gonzalez PA-C Dermatology [address] [place] [address] Assigned Dermatology Provider 01/31/25 documented as of this encounter
--- OUTSIDE RECORDS SUMMARY | 2025-04-06 21:30 | XMS_ITS | Encounter Summary ---
Author Organization [place] Address [address] [facility] [place] [address] Care Team Providers Care Strain Technician Name Role Phone Syed Yogesh Unavailable Yogesh Peraza MD Unavailable [phone] Tracy Covarrubias [facility] Unavailable Yogesh Peraza MD Unavailable +[phone] Leeanne Pickard APRN METEOROLOGICAL TECHNICIAN Unavailable Anyi Ha MD Unavailable [phone] Leeanne Pickard APRN METEOROLOGICAL TECHNICIAN Primary Care Provider + Valdemar Thompson MD Unavailable Jenni Camacho SHEETER OPERATOR METEOROLOGICAL TECHNICIAN Unavailable Mario Tsang RN Unavailable Unavailable Isaac Hennessy PA-C Unavailable [phone] Yogesh Peraza MD Unavailable [phone] Yogesh Peraza MD Unavailable [phone] Wendy Francis MD Unavailable [phone] [facility] Unavail able Noemi Calle RN Unavailable Unavailable Wendy Francis MD Unavailable [phone] Carmela PalmerC Primary Care Provider [phone] Ishmael Austin MD Unavailable Carmela Palmer PA-C Unavailable [phone] Romie Smith PhD Unavailable [phone] Valdemar Thompson MD Unavailable Kera Gonzalez PA-C Unavailable [phone] Kera Gonzalez PA-C Unavailable [phone] Encounter Details Date Type Department Care Team (Late st Contact Info) Description 09/26/2023 MyC Medical Advice [facility] [address] [place] [address] Mabel Perez Social History Tobacco Use Types Packs/Day Years [...] on file Legal 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 Female 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 Gender Identity Not on file Sexual Orientation Not on file documented as of this encounter Plan of Treatment Not on file documented as of this encounter Visit Diagnoses Not on filedocumented in this encounter Care Teams Strain Technician Relationship Specialty Start Date End Date Leeanne Pickard APRN METEOROLOGICAL TECHNICIAN PCP - General Family Medicine 07/27/22 11/09/23 Carmela Palmer PA-C [address] [place] [address] PCP - General Family Medicine 12/13/23 Yogesh Lynch [address] [place], [place] 118476 Referring Physician Medical Oncology 07/22/21 Yogesh Peraza MD [address] [place] [address] BMT Physician Transplant 08/25/21 Tracy Covarrubias, [facility] Still Worker Helper BMT - Adult 08/30/21 06/15/24 Yogesh Peraza MD [address] [place] [address]131 Assigned Cancer Care Provider 10/24/21 Leeanne Pickard APRN METEOROLOGICAL TECHNICIAN Assigned PCP 12/10/21 10/04/23 Anyi Ha MD [address] [place] [address] Assigned OBGYN Provider 03/19/22 Valdemar Thompson MD [address] [facility] [address] [place] 9[address]25 Cardiovascular Disease 07/27/22 Jenni Camacho APRN CNP [address] [place] [address] 155245 Nurse Practitioner Hematology & Oncology 09/16/22 [facility] B[facility] Nurse Coordinator Transplant 06/07/23 11/19/23 Isaac Hennessy, PA-C [address] [place] [address] Assigned Heart and Vascular Provider 05/20/23 07/02/24 Yogesh Peraza MD [address] [place] [address] Hematology 06/21/23 Yogesh Peraza MD [address] [place] [address] 74062 Hematology 06/21/23 Wendy Francis MD [address] [place] [address] 698395 Physical Medicine and Rehabilitation 08/28/[address] [address] Assigned PCP 10/05/23 01/01/24 Noemi Calle, DEANGELO BMT Nurse Coordinator Transplant 11/20/23 Wendy Francis MD [address] [place] [address] 366505 Assigned Neuroscience Provider 11/24/23 Ishmael Austin MD [address] [place] [address] 588015 Dermatology 12/15/23 Carmela Palmer PA-C [address] [place] [address] Assigned PCP 01/02/24 Romie Smith, PhD [address] [place] [phone] Assigned Behavioral Health Provider 06/03/24 Valdemar Thompson MD [address] 9754500 [place] [address] Assigned Heart and Vascular Provider 07/03/24 Kera Gonzalez PA-C Dermatology [address] [place] [address]57 Physician Photoresist Contact Printer Dermatology 11/08/24 Kera Gonzalez PA-C Dermatology [address] [place] [address] 26022 Assigned Dermatology Provider 01/31/25 documented as of this encounter
--- OUTSIDE RECORDS SUMMARY | 2025-04-06 21:30 | XMS_ITS | Encounter Summary ---
Author Organization [place] Address [address] [facility] [place] [address] Care Team Providers Care Stripper Preliminary Name Role Phone Syed Yogesh Unavailable Yogesh Peraza MD Unavailable [phone] [facility] Unavailable Yogesh Peraza MD Unavailable +[phone] Leeanne Pickard APRN TECHNICIAN BIOLOGICAL HEALTH Unavailable Anyi Ha MD Unavailable [phone] Leeanne Pickard APRN TECHNICIAN BIOLOGICAL HEALTH Primary Care Provider + Valdemar Thompson MD Unavailable Jenni Camacho AGRICULTURAL EQUIPMENT DESIGN ENGINEER TECHNICIAN BIOLOGICAL HEALTH Unavailable Mario Tsang RN Unavailable Unavailable Isaac Hennessy PA-C Unavailable [phone] Yogesh Peraza MD Unavailable [phone] Yogesh Peraza MD Unavailable [phone] Wendy Francis MD Unavailable [phone] [facility] Unavail able Noemi Calle RN Unavailable Unavailable Wendy Francis MD Unavailable [phone] Carmela PalmerC Primary Care Provider [phone] Ishmael Austin MD Unavailable Carmela Palmer PA-C Unavailable [phone] Romie Smith PhD Unavailable [phone] Valdemar Thompson MD Unavailable Kera Gonzalez PA-C Unavailable [phone] Kera Gonzalez PA-C Unavailable [phone] Encounter Details Date Type Department Care Team (Late st Contact Info) Description 09/22/2023 MyC Medical Advice [facility] Blood and Marrow Transplant Program [address] [address] Yogesh Peraza MD [address] [place] [address] Social History Tobacco Use Types Packs/Day Years [...] on file 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 Gender Identity Not on file Sexual Orientation Not on file documented as of this encounter Plan of Treatment Not on file documented as of this encounter Visit Diagnoses Not on filedocumented in this encounter Care Teams Stripper Preliminary Relationship Specialty Start Date End Date Leeanne Pickard APRN TECHNICIAN BIOLOGICAL HEALTH PCP - General Family Medicine 07/27/22 11/09/23 Carmela Palmer PA-C [address] [place] [phone] PCP - General Family Medicine 12/13/23 Yogesh Lynch [address] [place] [address] 502186 Referring Physician Medical Oncology 07/22/21 Yogesh Peraza MD [address] [place] [address] BMT Physician Transplant 08/25/21 Tracy Covarrubias, [facility] Manometer Technician BMT - Adult 08/30/21 06/15/24 Yogesh Peraza MD [address] [place] [address] Assigned Cancer Care Provider 10/24/21 Leeanne Pickard APRN TECHNICIAN BIOLOGICAL HEALTH Assigned PCP 12/10/21 10/04/23 Anyi Ha MD [address] [place] [address] Assigned OBGYN Provider 03/19/22 Valdemar Thompson MD [address] [address] [place] [address] Cardiovascular Disease 07/27/22 Jenni Camacho APRN CNP [address] [place] [address] Nurse Practitioner Hematology & Oncology 09/16/22 [facility] Nurse Coordinator Transplant 06/07/23 11/19/23 Isaac Hennessy PA-C [address]405 [place] [address] Assigned Heart and Vascular Provider 05/20/23 07/02/24 [place] [address] [place] [address] 28071 Hematology 06/21/23 Yogesh Peraza MD [address] [place] [address] 20997 Hematology 06/21/23 Wendy Francis MD [address] [place] [address] 90657 Physical Medicine and Rehabilitation 08/28/23 [facility] [address] [place] [address] Assigned PCP 10/05/23 01/01/24 Noemi Calle, DEANGELO BMT Nurse Coordinator Transplant 11/20/23 Wendy Francis MD [address] [place] [address] Assigned Neuroscience Provider 11/24/23 Ishmael Austin MD [address] [place], [place] 652205 Dermatology 12/15/23 Carmela Palmer PA-C [address] [place] [phone] Assigned PCP 01/02/24 Romie Smith, PhD [address] [place] [phone] Assigned Behavioral Health Provider 06/03/24 Valdemar Thompson MD 6[address] [facility] [address] [place], [place] 524865 Assigned Heart and Vascular Provider 07/03/24 Kera Gonzalez PA-C [facility] Dermatology [address] [place] [address] Physician Aed Trainer Dermatology 11/08/24 Kera Gonzalez PA-C Dermatology [address] [place] [address] 61741 Assigned Dermatology Provider 01/31/25 documented as of this encounter
--- OUTSIDE RECORDS SUMMARY | 2025-04-06 21:30 | XMS_ITS | Encounter Summary ---
Author Organization [place] Address [address] [place] [address]. [place] [address] Care Team Providers Care Dramatic Critic Name Role Phone LarryYogesh perrin Unavailable Yogesh Peraza MD Unavailable [phone] Yogesh Peraza MD Unavailable +[phone] Anyi Ha MD Unavailable [phone] Valdemar Thompson MD Unavailable Jenni Camacho APRN EDM OPERATOR Unavailable Yogesh Peraza MD Unavailable +[phone] Yogesh Peraza MD Unavailable +[phone] Wendy Francis MD Unavailable [phone] Noemi Calle RN Unavailable Unavailable Wendy Francis MD Unavailable [phone] Carmela Palmer PA-C Primary Care Provider [phone] Ishmael Austin MD Unavailable Carmela Palmer PA-C Unavailable [phone] Romie Smith PhD Unavailable [phone] Valdemar Thompson MD Unavailable Kera Gonzalez PA-C Unavailable +[phone] Kera Gonzalez PA-C Unavailable [phone] Encounter Details Date Type Department Care Team (Late st Contact Info) Description 11/25/2024 MyC Medical Advice [address] [address] Deanna Devine, RENITA Social History Tobacco Use Types Packs/Day Years [...] 12/13/2023 How often do you attend chur ch or congregation services? 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 Gender Identity Not on file Sexual Orientation Not on file documented as of this encounter Plan of Treatment Not on file documented as of this encounter Visit Diagnoses Not on filedocumented in this encounter Care Teams Dramatic Critic Relationship Specialty Start Date End Date Carmela Palmer PA-C [address] [place] [phone] PCP - General Family Medicine 12/13/23 Yogesh Lynch [address] [place], [place] 311416 Referring Physician Medical Oncology 07/22/21 Yogesh Peraza MD [address] [place], [place] 248746 BMT Physician Transplant 08/25/21 Yogesh Peraza MD [address] [place], [place] 762866 Assigned Cancer Care Provider 10/24/21 Anyi Ha MD [address] [place], [place] 636687 Assigned OBGYN Provider 03/19/22 Valdemra Thompson MD [address] [facility] [address] [place], [place] 957595 Cardiovascular Disease 07/27/22 Jenni Camacho APRN EDM OPERATOR [address] [place] [address] 191295 Nurse Practitioner Hematology & Oncology 09/16/22 Yogesh Peraza MD [facility] [place] [address] Hematology 06/21/23 Yogesh Peraza MD [address] [place] [address] Hematology 06/21/23 Wendy Francis MD [address] [place] [address]25 Physical Medicine and Rehabilitation 08/28/23 Noemi Calle, RN BMT Nurse Coordinator Transplant 11/20/23 Wendy Francis MD [address] [place] [address] Assigned Neuroscience Provider 11/24/23 Ishmael Austin MD [address] [place] [address] 218685 Dermatology 12/15/23 Carmela Palmer PA-C [address] [place] [phone] Assigned PCP 01/02/24 Romie Smith, PhD [address] [place] [address] [phone] Assigned Behavioral Health Provider 06/03/24 Valdemar Thompson MD [address] 406005 Assigned Heart and Vascular Provider 07/03/24 Kera Gonzalez PA-C Dermatology [address] [place] [address]334 Physician Bank Worker Dermatology 11/08/24 Kera Gonzalez PA-C Dermatology [address] [place] [address] 36296 Assigned Dermatology Provider 01/31/25 documented as of this encounter
--- OUTSIDE RECORDS SUMMARY | 2025-04-06 21:30 | XMS_ITS | Encounter Summary ---
Author Organization [place] Address [facility] [place] [address] Care Team Providers Care Reclamation Engineer Name Role Phone Syed Yogesh Unavailable Yogesh Peraza MD Unavailable [phone] Tracy Covarrubias [facility] Unavailable Yogesh Peraza MD Unavailable [phone] Leeanne Pickard APRN ALL AROUND PRESSER Unavailable Anyi Ha MD Unavailable [phone] Leeanne Pickard APRN ALL AROUND PRESSER Primary Care Provider + Valdemar Thompson MD Unavailable Galo Yun RN Unavailable [phone] Jenni Camacho APRN ALL AROUND PRESSER Unavailable Mario Tsang RN Unavailable Unavailable Isaac Hennessy PA-C Unavailable [phone] Yogesh Peraza MD Unavailable [phone] Yogesh Peraza MD Unavailable [phone] Wendy Francis MD Unavailable [phone] [facility] Unavail able Noemi Calle RN Unavailable Unavailable Wendy Francis MD Unavailable [phone] Spencer, Carmela M PA-C Primary Care Provider [phone] Ishmael Austin MD Unavailable Carmela Palmer PA-C Unavailable [phone] Romie Smith PhD Unavailable [phone] Valdemar Thompson MD Unavailable Kera Gonzalez PA-C Unavailable [phone] Kera Gonzalez PA-C Unavailable [phone] Encounter Details Date Type Department Care Team (Late st Contact Info) Description 05/30/2023 MyC Medical Advice [facility] Blood and Marrow Transplant Program [address] [address] Yogesh Peraza MD [address] [place] [address] Social History Tobacco Use Types Packs/Day [...] on file 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 No / Unsure 05/29/2023 9:12 AM CDT documented as of this encounter Plan of Treatment Not on file documented as of this encounter Visit Diagnoses Not on filedocumented in this encounter Care Teams Reclamation Engineer Relationship Specialty Start Date End Date Leeanne Pickard APRN ALL AROUND PRESSER PCP - General Family Medicine 07/27/22 11/09/23 Carmela Palmer PA-C [address] [place] [phone] PCP - General Family Medicine 12/13/23 Yogesh Lynch [address] [place] [address] Referring Physician Medical Oncology 07/22/21 Yogesh Peraza MD [address] [place] [address]348 BMT Physician Transplant 08/25/21 [facility] Information Security Specialist BMT - Adult 08/30/21 06/15/24 Yogesh Peraza MD [address] [place] [address] 396026 Assigned Cancer Care Provider 10/24/21 Leeanne Pickard APRN ALL AROUND PRESSER Assigned PCP 12/10/21 10/04/23 Anyi Ha MD [address] [place] [address] Assigned OBGYN Provider 03/19/22 Valdemar Thompson MD [address] [address] Cardiovascular Disease 07/27/22 Galo Yun, RN Specialty Jockey'S Agent BMT - Adult 09/16/22 06/06/23 Jenni Camacho APRN ALL AROUND PRESSER [address] [place] [address] 153085 Nurse Practitioner Hematology & Oncology 09/16/22 [facility] Nurse Coordinator Transplant 06/07/23 11/19/23 Isaac Hennessy, PALavelleC [address] [place] [address] Assigned Heart and Vascular Provider 05/20/23 07/02/24 [place] [address] [place] [address] Hematology 06/21/23 [place] [address] [place] [address] 14853 Hematology 06/21/23 Wendy Francis MD [address] [place] [address] 206615 Physical Medicine and Rehabilitation 08/28/[address] [address] Assigned PCP 10/05/23 01/01/24 Noemi Calle, RN BMT Nurse Coordinator Transplant 11/20/23 Wendy Francis MD [address]09 [place] [address] Assigned Neuroscience Provider 11/24/23 Ishmael Austin MD [address] [place] [address]192 Dermatology 12/15/23 Carmela Palmer PA-C [address] [place] [phone] Assigned PCP 01/02/24 Romie Smith, PhD [address] [place] [phone] Assigned Behavioral Health Provider 06/03/24 Valdemar Thompson MD [address] 6286900 [place] [address] Assigned Heart and Vascular Provider 07/03/24 Kera Gonzalez PA-C [facility]at[facility] [address] [place] [address]61 Physician Front End Developer Designer Dermatology 11/08/24 Kera Gonzalez PA-C [facility] [address] [place] [address]146 Assigned Dermatology Provider 01/31/25 documented as of this encounter
--- OUTSIDE RECORDS SUMMARY | 2025-04-06 21:30 | XMS_ITS | Encounter Summary ---
Author Organization [place] Address [facility] [place] [address] Care Team Providers Care Vehicle Insurance Agent Name Role Phone Nahum Naylor PA-C Primary Care Provider Yogesh Lynch Unavailable Yogesh Peraza MD Unavailable [phone] Tracy Covarrubias [facility] Unavailable Yogesh Peraza MD Unavailable [phone] Ref-Primary, Physician Primary Care Provider Leeanne Pickard APRN IMPREGNATOR HELPER Unavailable Anyi Ha MD Unavailable [phone] Leeanne Pickard APRN IMPREGNATOR HELPER Primary Care Provider + Valdemar Thompson MD Unavailable Valdemar Thompson MD Unavailable Galo Yun RN Unavailable [phone] Jenni Camacho JACKERMAN IMPREGNATOR HELPER Unavailable Jenni Camacho JACKERMAN IMPREGNATOR HELPER Unavailable Mario Tsang RN Unavailable Unavailable Isaac Hennessy PA-C Unavailable [phone] Yogesh Peraza MD Unavailable +[phone] Yogesh Peraza MD Unavailable +[phone] Wendy Francis MD Unavailable [phone] [facility] Unavail able Noemi Calle RN Unavailable Unavailable Wendy Francis MD Unavailable [phone] Carmela Palmer PA-C Primary Care Provider Ishmael Austin MD Unavailable Carmela Palmer PA-C Unavailable [phone] Romie Smith PhD Unavailable [phone] Valdemar Thompson MD Unavailable eKra Gonzalez PA-C Unavailable [phone] Kera Gonzalez PA-C Unavailable + [phone] Encounter Details Date Type Department Care Team (Late st Contact Info) Description 11/16/2021 MyC Medical Advice [facility] [address] 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 No / Unsure 11/18/2021 4:37 PM MOSAIC LAYER documented as of this encounter Plan of [...] Out COVID-19 09/30/2022 09/30/2022 09/30/2022 10:10 PM MOSAIC LAYER Rule Out Pertussis 01/15/2023 01/17/2023 8:11 AM CDT Rule Out COVID-19 01/17/2023 01/17/2023 02/07/2023 11:39 PM CDT documented as of this encounter Care Teams Vehicle Insurance Agent Relationship Specialty Start Date End Date Nahum Naylor PA-C [facility] [address] [place], [place] [phone] PCP - General Internal Medicine 07/22/21 12/16/21 No Ref-Primary, Physician PCP - General 12/17/21 07/26/22 Leeanne Pickard APRN CNP PCP - General Family Medicine 07/27/22 11/09/23 Carmela Palmer PA-C [address] [place] [phone] PCP - General Family Medicine 12/13/23 Yogesh Lynch [facility] [place], [place] [address] Referring Physician Medical Oncology 07/22/21 Yogesh Peraza MD [address] [place] [address] BMT Physician Transplant 08/25/21 Tracy Covarrubias, [facility] Tax Compliance Agent BMT - Adult 08/30/21 06/15/24 Yogesh Peraza MD [address] [place], [place] 438396 Assigned Cancer Care Provider 10/24/21 Leeanne Pickard APRN IMPREGNATOR HELPER Assigned PCP 12/10/21 10/04/23 Anyi Ha MD [address] [place], [place] 238837 Assigned OBGYN Provider 03/19/22 Valdemar Thompson MD 6[address] [facility] [address] [place] 357195 Cardiovascular Disease 07/27/22 Valdemar Thompson MD [address] [facility] [address] [place], [place] 615625 Assigned Heart and Vascular Provider 08/06/22 05/19/23 Galo Yun RN Specialty Wire Taper BMT - Adult 09/16/22 06/06/23 Jenni Camacho APRN IMPREGNATOR HELPER [address] [place] [address] Nurse Practitioner Hematology & Oncology 09/16/22 Jenni Camacho APRN IMPREGNATOR HELPER [address] [place] [address] 71463 Nurse Practitioner Hematology & Oncology 09/16/22 Mario Tsang RN BMT Nurse Coordinator Transplant 06/07/23 11/19/23 Isaac Hennessy PA-C 6405 [place] [address] Assigned Heart and Vascular Provider 05/20/23 07/02/24 Yogesh Peraza MD [address] [place] [address] Hematology 06/21/23 Yogesh Peraza MD [address] [place] [address] [facility] 06/21/23 Wendy Francis MD [address] [place] [address] 921235 Physical Medicine and Rehabilitation 08/28/23 [facility] [address] [place] [address] Assigned PCP 10/05/23 01/01/24 Noemi Calle, RN BMT Nurse Coordinator Transplant 11/20/23 Wendy Francis MD [address] [place] [address] 418305 Assigned Neuroscience Provider 11/24/23 Ishmael Austin MD [address] [place] [address] 09642 Dermatology 12/15/23 Carmela Palmer PA-C [address] [place] [address]-408283 Assigned PCP 01/02/24 Romie Smith, PhD [address]09 [place] [address] Assigned Behavioral Health Provider 06/03/24 Valdemar Thompson MD [address] [facility] [address] [place] [address] Assigned Heart and Vascular Provider 07/03/24 Kera Gonzalez PA-C [facility] [address] [place] [address]0 Physician Agronomist Dermatology 11/08/24 Kera Gonzalez PA-C Dermatology [address] [place] [address] Assigned Dermatology Provider 01/31/25 documented as of this encounter
--- OUTSIDE RECORDS SUMMARY | 2025-04-06 21:30 | XMS_ITS | Encounter Summary ---
Author Organization Theodore Address [address] [place] [address]. [place] [address] Care Team Providers Care Route Vending Machine Servicer Name Role Phone Larrymarychuy Yogesh Unavailable Yoegsh Peraza MD Unavailable [phone] Tracy CovarrubiasSW Unavailable Yogesh Peraza MD Unavailable +[phone] Anyi Ha MD Unavailable [phone] Valdemar Thompson MD Unavailable Jenni Camacho APRN ASSISTED LIVING MANAGER Unavailable Isaac Hennessy PA-C Unavailable [phone] Yogesh Peraza MD Unavailable [phone] Yogesh Peraza MD Unavailable [phone] Wendy Francis MD Unavailable [phone] [facility] Unavail able Noemi Calle RN Unavailable Unavailable Wendy Francis MD Unavailable [phone] Carmela Palmer PA-C Primary Care Provider [phone] Ishmael Austin MD Unavailable Carmela Palmer PA-C Unavailable [phone] Romie Smith PhD Unavailable [phone] Valdemar Thompson MD Unavailable Kera Gonzalez PA-C Unavailable [phone] Kera Goznalez PA-C Unavailable [phone] Encounter Details Date Type Department Care Team (Late st Contact Info) Description 12/27/2023 MyC Medical Advice [facility] Blood and Marrow Transplant Program [address] [address] Yogesh Peraza MD [address] [place] [address] [phone] Social History Tobacco Use Types Packs/Day Years [...] often do you attend chur ch or confucianism services? Never 12/13/2023 Do you belong to any clubs o r organizations such as religious groups, unions, fraternal or athletic groups, or [...] Answer Date Recorded PHQ-2 Score 0 12/13/2023 [facility] - Occupational Stress [...] in an abandoned building, in an overnight fpc, or couch-surfing.) Yes 12/13/2023 Are you worried [...] on file Legal Sex Female 4:09 AM USER EXPERIENCE ANALYST Gender Identity Not on file Sexual Orientation Not on file documented as of this encounter Plan of Treatment Not on file documented as of this encounter Visit Diagnoses Not on filedocumented in this encounter Care Teams Route Vending Machine Servicer Relationship Specialty Start Date End Date Carmela Palmer PA-C [address] [place] [address] PCP - General Family Medicine 12/13/23 Yogesh Lynch [address] [place] [address] [phone] Referring Physician Medical Oncology 07/22/21 Yogesh Peraza MD [address] [place] [address] BMT Physician Transplant 08/25/21 [facility] Blocker BMT - Adult 08/30/21 06/15/24 Yogesh Peraza MD [address] [place] [address] Assigned Cancer Care Provider 10/24/21 Anyi Ha MD [address] [place] [address] Assigned OBGYN Provider 03/19/22 Valdemar Thompson MD [address] [id number] [place] [id number] Cardiovascular Disease 07/27/22 Jenni Camacho APRN ASSISTED LIVING MANAGER [address] 470465 Nurse Practitioner Hematology & Oncology 09/16/22 Isaac Hennessy PA-C [address] [place] [address] Assigned Heart and Vascular Provider 05/20/23 07/02/24 [place] [address] [place] [address] Hematology 06/21/23 Yogesh Peraza MD [address] [place] [address] Hematology 06/21/23 Wendy Francis MD [address] [place] [address] 490805 Physical Medicine and Rehabilitation 08/28/23 [facility] [address] [place] [address] Assigned PCP 10/05/23 01/01/24 Noemi Calle, DEANGELO BMT Nurse Coordinator Transplant 11/20/23 Wendy Francis MD [address] [place] [address] Assigned Neuroscience Provider 11/24/23 Ishmael Austin MD [address] [place] [address] 884025 Dermatology 12/15/23 Carmela Palmer PA-C [address] [place] [address] Assigned PCP 01/02/24 Romie Smith, PhD [address] [place] [phone] Assigned Behavioral Health Provider 06/03/24 Valdemar Thompson MD [address] [facility] [address] [place] [address] Assigned Heart and Vascular Provider 07/03/24 Kera Gonzalez PA-C [facility] [address] [place] [address] Physician Medical Staffing Coordinator Dermatology 11/08/24 Kera Gonzalez PA-C [facility] [address] [place] [address] Assigned Dermatology Provider 01/31/25 documented as of this encounter
--- OUTSIDE RECORDS SUMMARY | 2025-04-06 21:30 | XMS_ITS | Clinical Summary ---
Author Organization [facility] Address [address] [place] [address] Care Team Providers Care Offset Printer Name Role Phone Nahum Naylor PA-C Primary Care Provider [phone] Source Comments You are receiving this document as you are listed as the primary care provider,follow-up provider, or the patient has been referred to you for consultation.This is in compliance with the Medicare and[facility] Hospital[facility] EHR Incentive Program,which states Providers who transition their patient to another setting of careor provider of care or refers their patient to another provider of care shouldprovide summary care record for each transition of care or referral. Waddle Allergies Active Allergy Reactions Criticality Noted Date Comments Cheri Gastrointestinal 10/08/2015 Hydroxyzine Other, see comments 10/08/2015 Patient was given this med during or after surgery with Demerol and is unsure which on she had a reaction to. La Nena Valdez LPN 10/08/2015 4:24 PM Caused arm swelling & rash Meperidine Other, see comments 11/15/2006 Medications traZODone (DESYREL) 50 MG tabletIndication s:Major Depressive Disorder Take 50 mg by mouth daily at bedtime. Indications: Major Depressive Disorder Activ e omeprazole (PRILOSEC OTC) 20 MG enteric coated tabletIndication s:Gastroesophage al Reflux Disease Take 20 mg by mouth daily. Indications: Gastroesophageal Reflux Disease Active acyclovir (ZOVIRAX) 400 MG tabletIndication s:prophylaxis Take 1 Tablet by mouth two times a day. Indications: prophylaxis 60 Tablet 5 09/29/2 021 Active Additional Information Patient taking differently:400 mg Oral BID,Indications: HSV prophylaxis, Reported on 06/17/2021 FLUoxetine (PROZAC) 20 MG capsuleIndicatio ns:Major Depressive Disorder Take 2 Capsules by mouth daily at bedtime. Indications: Major Depressive Disorder 60 Capsule 2 Active diphenhydramine/ alum-mag antacid/viscous lidocaine (MAGIC MOUTHWASH) oral suspensionIndica tions:mucositis Swish and spit 5 mL in mouth every 4 hours as needed for Pain. contains 1:1:1 ratio of diphenhydramine, lidocaine 2%, alum-mag antacid Indications: mucositis 360 mL 2 Active lidocaine (XYLOCAINE) 2 % jellyIndications :Mucositis Apply topically every 4 hours as needed. 30 mL 2 Active Additional Information Patient taking differently:Topical Q4H PRN,Apply with Q-tip to mouth sores for eating pain, Reported on 07/20/2021 senna (SENOKOT) 8.6 MG tabletIndication s:B-cell lymphoblastic leukemia (HRC) Take 1-2 Tablets by mouth daily as needed for Constipation. 30 Tablet 2 Active Additional Information Patient taking differently: 1 [id number], Reported on 07/20/2021 triamterene-hydr ochlorothiazide (DYAZIDE) 37.5-25 MG capsule Take 1 Capsule by mouth daily. As needed for swelling. 30 Capsule 3 Active Additional Information Patient taking differently:1 Capsule [id number] PRN, As needed for swelling., Reported on 07/20/2021 levoFLOXacin (LEVAQUIN) 500 MG tabletIndication s:antibiotic PPX Take 1 Tablet by mouth daily. Start when instructed (ANC<500). Indications: antibiotic PPX 30 Tablet 2 Active furosemide (LASIX) 20 MG tablet Take 1 Tablet by mouth two times a day for 6 doses. 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 Depression, major 02/03/2009 Resolved Problems Problem Noted Date Diagnosed Date Resolved Date Thrombocytopenia 05/20/2021 07/02/2021 Immunizations Immunization Administration Dates Next Due Influenza IIV4 (Quadrivalent) 0.5mL (97805) 07/12 Pfizer Monovalent 12+ Purple Top 09/16/2020,08/11 Family History Medical History Relation Name Comments Cancer, Breast Negative Family History Cancer, Ovary Negative Family History Social History Tobacco Use Types Packs/Day Years Used Date Smoking Tobacco: Former Cigarettes Q uit: 09/11/2004 Smokeless Tobacco: Former Alcohol Use Standard Drinks/Week Comments Not Currently 0 (1 standard drink = 0.6 oz pur e alcohol) Comments No Sex and Gender Information Value Date Recorded Sex Assigned at Not on file Legal Sex Female 8:32 AM CDT Gender Identity Not on file Sexual Orientation Not on file Last Filed Vital Signs Vital Sign Reading Time Taken Comments Blood Pressure 117/60 08/18/2021 2:21 PM BANK TELLER Pulse 81 08/18/2021 2:21 PM BANK TELLER Temperature 37.1 C (98.7 F) 08/11/2021 4:33 PM BANK TELLER Respiratory Rate 16 08/11/2021 4:33 PM BANK TELLER Oxygen Saturation 100% 08/11/2021 2:27 PM BANK TELLER Inhaled Oxygen Concentration - - Weight 68 kg (150 lb) 08/09/2021 3:57 PM BANK TELLER Height 167.6 cm (5' 5.98) 07/21/2021 9:14 AM CS T Body Mass Index 24.22 07/21/2021 9:14 AM BANK TELLER Plan of Treatment Health Maintenance Due Date Last Done Comments Cervical Cancer Screening Due 1969 Colon Cancer Screening Plan Due 1970 Adult Preventive Visit 12/15/1987 HepB Vaccine (1) 1988 Pneumococcal Vaccine 50+ Yrs (1 of 2 - PCV) 1988 Cholesterol 2014 COVID-19 Vaccine (3 - Pfizer risk series) 10/14/2020 09/16/2020, 08/26/2020 Zoster/Shingles Vaccine (2 of 2) 06/30/2021 05/05/2021 Mammogram 08/18/2021 08/18/2020, 04/16/2019 Influenza Vaccine (#1) 2025 , 07/05/2020, 07/08/2019, Additional history exists DTaP/Tdap/Td Vaccine (3 - Tdap) 08/31/2028 08/31/2018, 01/22/2008, 10/04/2002 HepA Vaccine Aged Out 03/26/2013, 03/11, 09/18/2012 No longer eligible based on patient's age to complete this topic HIV Screening (Preventive Services) Completed 05/23/2021 Hep C Screening (Preventive Services) Completed 05/23/2021 Hib Vaccine Aged Out No longer eligi ble based on patient's age to complete this topic IPV (Polio) Vaccine Aged Out No longe r eligible based on patient's age to complete this topic MCV4 Vaccine Aged Out No longer eligi ble based on patient's age to complete this topic Meningococcal B Vaccine Aged Out No l onger eligible based on patient's age to complete this topic Procedures Procedure Name Priority Date/Time Associated Diagnosis Comments HIV 1/2 AG/AB 4TH GEN Routine 05/23/2021 10:16 AM CDT HEPATITIS C ANTIBODY, WITH REFLEX (ANTI-HCV) Routine 05/23/2021 10:16 AM CDT MM MAMMOGRAM SCREENING BILAT W 3D SHAN W CAD Routine 08/18/2020 12:03 PM BANK TELLER Visit for screening mammogram from Last 3 Months or Most Recently Relevant to Health Maintenance Results * HIV 1/2 Ag/Ab 4th Generation (05/23/2021 10:16 AM CDT) HIV 1/2 Antigen/Antib jeannie (4th generation) Negative (Non Reactive) Negative (Non Reactive) 05/23/2021 11:11 AM CDT [facility] Comment:HIV-1 p24 Antigen an d HIV-1/HIV-2 Antibody not detected Blood Venipuncture / Unknown 05/23/2021 10:16 AM CDT 05/23/2021 10:22 AM CDT us Yogesh Lynch MD LAB_1 Final Result Performing Organization Address City/[facility] Co de Phone Number [facility] [address] * Hepatitis C Virus Lyudmila In-House (05/23/2021 10:16 AM CDT) Hepatitis C Antibody Negative (Non Reactive) Negative (Non Reactive) 05/23/2021 11:11 AM CDT [facility] Comment:Antibodies to HCV no t detected. Does not exclude the possiblity of exposure to HCV. Blood Venipuncture / Unknown 05/23/2021 10:16 AM CDT 05/23/2021 10:22 AM CDT us Yogesh Lynch MD LAB_1 Final Result Performing Organization Address [facility] Phone Number [facility] [address] * MM Mammogram Screening Bilat W 3D Shan W CAD (08/18/2020 12:03 PM BANK TELLER) Anatomical Region Laterality Modality Breast Bilateral Mammography Impressions 08/19/2020 8:11 AM BANK TELLER : ACR BI-RADS Category 1: Negative RECOMMENDATION: Follow Up Imaging in 12 months - Bilateral The results and recommendations of this examination will be communicated to the patient. Narrative 08/19/2020 8:11 AM BANK TELLER MM MAMMOGRAM SCREENING BILAT W 3D SHAN W CAD performed on 08/18/20 Compared to: 04/16/2019 MM Mammogram Screening Bilat W 3D Shan W CAD, 04/05/2016 Foreign Image(S) Mammogram, and 02/25/2015 Foreign Image(S) Mammogram FINDINGS: Bilateral screening mammogram was performed with the assistance of Computer-Aided Detection and breast tomosynthesis. The breasts have scattered areas of fibroglandular density. There is no radiographic evidence of malignancy. us Nahum Naylor PA-C RAD RADHA Final Resu lt from Last 3 Months or Most Recently Relevant to Health Maintenance Advance Directives * Full Code (Latest Code Status on File) Date Activated Date Inactivated Comments 07/20/2021 11:08 AM 07/24/2021 4:58 PM * Full Code Date Activated Date Inactivated Comments 06/29/2021 1:04 AM 07/02/2021 3:47 PM Question Answer Comments On Admission, Code status was determined by: Dis cussed with patient/family * Full Code Date Activated Date Inactivated Comments 06/17/2021 10:19 AM 06/21/2021 5:15 PM * Full Code Date Activated Date Inactivated Comments 05/20/2021 6:25 PM 06/11/2021 12:24 AM Question Answer Comments On Admission, Code status was determined by: Dis cussed with patient/family Care Teams Offset Printer Relationship Specialty Start Date End Date Nahum Naylor, RAFAELC [address] [place] [address] PCP - General 05/20/21
--- OUTSIDE RECORDS SUMMARY | 2025-04-06 21:30 | XMS_ITS | Encounter Summary ---
Author Organization Coyle Address [address] [place] [address]. [place] [address] Care Team Providers Care Technical Sales Director Name Role Phone Larrymarychuy Yogesh Unavailable Yogesh Peraza MD Unavailable [phone] Tracy CovarrubiasSW Unavailable Yogesh Peraza MD Unavailable [phone] Anyi Ha MD Unavailable [phone] Valdemar Thompson MD Unavailable Jenni Camacho APRN OFFICE MESSENGER Unavailable Isaac Hennessy PA-C Unavailable [phone] Yogesh Peraza MD Unavailable [phone] Yogesh Peraza MD Unavailable [phone] Wendy Francis MD Unavailable [phone] Noemi Calle RN Unavailable Unavailable Wendy Francis MD Unavailable [phone] Carmela Palmer PA-C Primary Care Provider [phone] Ishmael Austin MD Unavailable Carmela Palmer PA-C Unavailable [phone] Romie Smith PhD Unavailable [phone] Valdemar Thompson MD Unavailable Kear Gonzalez PA-C Unavailable [phone] Mackenziejesus Kera Adriel JOSE Unavailable [phone] Encounter Details Date Type Department Care Team (Late st Contact Info) Description 01/23/2024 Juanito Medical Advice [facility] [address] [place] [address] Carmela Palmer PA-C [id number] [place] [address] Social History Tobacco Use Types Packs/Day Years [...] often do you attend chur ch or voodoo services? Never 12/13/2023 Do you belong to any clubs o r organizations such as mormonism groups, unions, fraternal or athletic groups, or [...] Answer Date Recorded PHQ-2 Score 0 12/13/2023 [facility] - Occupational Stress Questionnaire Answer [...] in an abandoned building, in an overnight assisted, or couch-surfing.) Yes 12/13/2023 Are you worried [...] on file Legal Sex Female 4:09 AM GRADE RECORDER Gender Identity Not on file Sexual Orientation Not on file documented as of this encounter Miscellaneous Notes * Telephone Encounter - Litzy Palmer RN - 01/23/2024 2:38 PM CDT Refer to triage encounter 01/23/2024. documented in this encounter Plan of Treatment Not on file documented as of this encounter Visit Diagnoses Not on filedocumented in this encounter Care Teams Technical Sales Director Relationship Specialty Start Date End Date Carmela Palmer PA-C [address] [place] [address] PCP - General Family Medicine 12/13/23 Yogesh Lynch [address] [place], [place] 750996 Referring Physician Medical Oncology 07/22/21 Yogesh Peraza MD [address] [place] [address] BMT Physician Transplant 08/25/21 Tracy Covarrubias, [facility] Purchasing Analyst BMT - Adult 08/30/21 06/15/24 Yogesh Peraza MD [facility] [place] [address] Assigned Cancer Care Provider 10/24/21 Anyi Ha MD [address] [place], [place] 364497 Assigned OBGYN Provider 03/19/22 Valdemar Thompson MD [address] [facility] [address] [place] [address] Cardiovascular Disease 07/27/22 Jenni Camacho APRN CNP [address] [place] [address] 624435 Nurse Practitioner Hematology & Oncology 09/16/22 Isaac Hennessy PA-C [address] [place], [place] 9104[address] Assigned Heart and Vascular Provider 05/20/23 07/02/24 Yogesh Peraza MD [address] [place] [address] 525566 Hematology 06/21/23 Yogesh Peraza MD [address] [place] [address] 479856 Hematology 06/21/23 Wendy Francis MD [address] [place] [address] 680145 Physical Medicine and Rehabilitation 08/28/23 Noemi Calle, RN BMT Nurse Coordinator Transplant 11/20/23 Wendy Francis MD [address] [place] [address] 126665 Assigned Neuroscience Provider 11/24/23 Ishmael Austin MD [address] [place] [address] 575145 Dermatology 12/15/23 Carmela Palmer PA-C [address] [place] [address] Assigned PCP 01/02/24 Romie Smith, PhD [address] [place] [phone] Assigned Behavioral Health Provider 06/03/24 Valdemar Thompson MD [address] [facility] [address] [place], [place] 637985 Assigned Heart and Vascular Provider 07/03/24 Kera Gonzalez PA-C [facility] [address] [place] [address] Physician Fashion Marketer Dermatology 11/08/24 Kera Gonzalez PA-C Dermatology [address] [place] [address] Assigned Dermatology Provider 01/31/25 documented as of this encounter
--- OUTSIDE RECORDS SUMMARY | 2025-04-06 21:30 | XMS_ITS | Encounter Summary ---
Author Organization [place] Address [facility] [place] [address] Care Team Providers Care Trail Maintenance Worker Name Role Phone Syed Yogesh Unavailable Yogesh Peraza MD Unavailable [phone] Tracy Covarrubias [facility] Unavailable Yogesh Peraza MD Unavailable [phone] Leeanne Pickard APRN FARM CONTRACTOR BUYER Unavailable Anyi Ha MD Unavailable [phone] Leeanne Pickard APRN FARM CONTRACTOR BUYER Primary Care Provider + Valdemar Thompson MD Unavailable Galo Yun RN Unavailable [phone] Jenni Camacho APRN FARM CONTRACTOR BUYER Unavailable Mario Tsang RN Unavailable Unavailable Isaac Hennessy PA-C Unavailable [phone] Yogesh Peraza MD Unavailable [phone] Yogesh Peraza MD Unavailable [phone] Wendy Francis MD Unavailable [phone] [facility] Unavail able Noemi Calle RN Unavailable Unavailable Wendy Francis MD Unavailable [phone] [place], [place]ela M PA-C Primary Care Provider [phone] Ishmael Austin MD Unavailable Carmela Palmer PA-C Unavailable [phone] Romie Smith PhD Unavailable [phone] Valdemar Thompson MD Unavailable Kera Gonzalez PA-C Unavailable [phone] Kera Gonzalez PA-C Unavailable [phone] Encounter Details Date Type Department Care Team (Late st Contact Info) Description 05/31/2023 MyC Medical Advice [facility] Blood and Marrow Transplant Program [address] [address] Yogesh Peraza MD [address] [place] [address] Social History Tobacco Use Types Packs/Day [...] on file Legal Sex Female 4:09 AM HEEL ATTACHER Gender Identity Not on file Sexual Orientation [...] on filedocumented in this encounter Care Teams Trail Maintenance Worker Relationship Specialty Start Date End Date Leeanne Pickard APRN FARM CONTRACTOR BUYER PCP - General Family Medicine 07/27/22 11/09/23 Carmela Palmer PA-C [address] [place] [phone] PCP - General Family Medicine 12/13/23 Yogesh Lynch [address] [place] [address] Referring Physician Medical Oncology 07/22/21 Yogesh Peraza MD [address] [place] [address] BMT Physician Transplant 08/25/21 [facility] Senior Mobile Web Developer BMT - Adult 08/30/21 06/15/24 Yogesh Peraza MD [address] [place] [address] [phone] Assigned Cancer Care Provider 10/24/21 Leeanne Pickard APRN FARM CONTRACTOR BUYER Assigned PCP 12/10/21 10/04/23 Ayni Ha MD [address] [place] [address] Assigned OBGYN Provider 03/19/22 Valdemar Thompson MD [address] [address] Cardiovascular Disease 07/27/22 Galo Yun, RN Specialty Oil Tank Car Cleaner BMT - Adult 09/16/22 06/06/23 Jenni Camacho APRN FARM CONTRACTOR BUYER [address] [place] [address] [phone] Nurse Practitioner Hematology & Oncology 09/16/22 [facility] RN BMT Nurse Coordinator Transplant 06/07/23 11/19/23 Isaac Hennessy, PALavelleC [address] [place] [address] Assigned Heart and Vascular Provider 05/20/23 07/02/24 [place] [address] [place] [address] Hematology 06/21/23 [place] [address] [place] [address] Hematology 06/21/23 Wendy Francis MD [address] [place] [address] [phone] Physical Medicine and Rehabilitation 08/28/[address] [address] Assigned PCP 10/05/23 01/01/24 Noemi Calle, RN BMT Nurse Coordinator Transplant 11/20/23 Wendy Francis MD [address] [place] [address] Assigned Neuroscience Provider 11/24/23 Ishmael Austin MD [address] [place] [address] Dermatology 12/15/23 Carmela Palmer PA-C [address] [place] [phone] Assigned PCP 01/02/24 Romie Smith, PhD [address] [place] [phone] Assigned Behavioral Health Provider 06/03/24 Valdemar Thompson MD [phone] [place] [address] Assigned Heart and Vascular Provider 07/03/24 Kera Gonzalez PA-C [facility] [address] [place] [address] Physician Behavioral Health Case Manager Dermatology 11/08/24 Kera Gonzalez PA-C [facility] [address] [place] [address] Assigned Dermatology Provider 01/31/25 documented as of this encounter
--- OUTSIDE RECORDS SUMMARY | 2025-04-06 21:31 | XMS_ITS | Encounter Summary ---
Author Organization [place] Address [facility] access hospital0 [facility] [address] Care Team Providers Care Service Worker Helper Name Role Phone DiliayayoYogesh Unavailable Yogesh Peraza MD Unavailable [phone] Tracy Covarrubias [facility] Unavailable Yogesh Peraza MD Unavailable [phone] Ref-Primary, Physician Primary Care Provider Leeanne Pickard APRN INSIGHTS MANAGER Unavailable Anyi Ha MD Unavailable [phone] Leeanne Pickard FINANCIAL AUDITOR INSIGHTS MANAGER Primary Care Provider + Valdemar Thompson MD Unavailable Valdemar Thompson MD Unavailable Galo Yun RN Unavailable [phone] Jenni Camacho FINANCIAL AUDITOR INSIGHTS MANAGER Unavailable Jenni Camacho FINANCIAL AUDITOR INSIGHTS MANAGER Unavailable Mario Tsang RN Unavailable Unavailable Isaac Hennessy PA-C Unavailable [phone] Yogesh Peraza MD Unavailable +[phone] Yogesh Peraza MD Unavailable +[phone] Wendy Francis MD Unavailable [phone] [facility] Unavail able Noemi Calle RN Unavailable Unavailable Wendy Francis MD Unavailable [phone] Carmela Palmer PA-C Primary Care Provider [phone] Ishmael Austin MD Unavailable Carmela Palmer PA-C Unavailable [phone] Romie Smith PhD Unavailable [phone] Valdemar Thompson MD Unavailable Kera Gonzalez PA-C Unavailable [phone] Kera Gonzalez PA-C Unavailable [phone] Encounter Details Date Type Department Care Team (Late st Contact Info) Description 07/04/2022 [facility] [address] [place] [address] [facility] Social History Tobacco Use Types Packs/Day Years Used Date Smoking Tobacco: Former Cigarettes Q uit: 2004 Smokeless Tobacco: Never Alcohol Use Standard Drinks/Week Comments Not Currently 0 (1 standard drink = 0.6 oz pur e alcohol) Humiliation, Afraid, Rape, and Kick questionnair e [...] 05/03/2022 PHQ-2 Answer Date Recorded PHQ-2 Score 2 01/07/2022 Comments No Sex and Gender Information Value Date Recorded Sex Assigned at Not on file Legal Sex Female 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 No / Unsure 07/04/2022 8:50 AM CDT documented as of this encounter Plan of Treatment Not on file documented as of this encounter Visit Diagnoses Not on filedocumented in this encounter Additional Health Concerns Infection Onset Date Last Indicated Resolved Time Rule Out COVID-19 09/30/2022 09/30/2022 09/30/2022 10:10 PM TAIL BOARD WORKER Rule Out Pertussis 01/15/2023 01/17/2023 8:11 AM CDT Rule Out COVID-19 01/17/2023 01/17/2023 02/07/2023 11:39 PM CDT documented as of this encounter Care Teams Service Worker Helper Relationship Specialty Start Date End Date No Ref-Primary, Physician PCP - General 12/17/21 07/26/22 Leeanne Pickard APRN CNP PCP - General Family Medicine 07/27/22 11/09/23 Carmela Palmer PA-C [address] [place] [phone] PCP - General Family Medicine 12/13/23 Yogesh Lynch [facility] [place], [place] [address] Referring Physician Medical Oncology 07/22/21 Yogesh Peraza MD [address] [place] [address] BMT Physician Transplant 08/25/21 Tracy Covarrubias, [facility] Mortgage Underwriter BMT - Adult 08/30/21 06/15/24 Yogesh Peraza MD [address] [place] [address] Assigned Cancer Care Provider 10/24/21 Leeanne Pickard APRN INSIGHTS MANAGER Assigned PCP 12/10/21 10/04/23 Anyi Ha MD [address] [facility] [place], [place] [address] Assigned OBGYN Provider 03/19/22 Valdemar Thompson MD [address] [facility] [address] [facility] [address] [place], [place] 0[address] Cardiovascular Disease 07/27/22 Valdemar Thompson MD [address] [facility] [address] [address] [place], [place] 12[address]85 Assigned Heart and Vascular Provider 08/06/22 05/19/23 Galo Yun, DEANGELO Specialty Pumper Head BMT - Adult 09/16/22 06/06/23 Jenni Camacho APRN INSIGHTS MANAGER [address] [place] [address] Nurse Practitioner Hematology & Oncology 09/16/22 Jenni Camacho APRN INSIGHTS MANAGER [address] [place] [address] Nurse Practitioner Hematology & Oncology 09/16/22 Mario Tsang RN BMT Nurse Coordinator Transplant 06/07/23 11/19/23 Isaac Hennessy, PALavelleC [address] [place] [address] Assigned Heart and Vascular Provider 05/20/23 07/02/24 Yogesh Peraza MD [address] [place] [address] Hematology 06/21/23 Yogesh Peraza MD [address] [place] [address] Hematology 06/21/23 Wendy Francis MD [address] [place] [address] Physical Medicine and Rehabilitation 08/28/[address] [facility] [address] [place] [address] Assigned PCP 10/05/23 01/01/24 Noemi Calle, RN BMT Nurse Coordinator Transplant 11/20/23 Wendy Francis MD [address] [place] [address] Assigned Neuroscience Provider 11/24/23 Ishmael Austin MD [address] [place] [address] Dermatology 12/15/23 Carmela Palmer PA-C [address] [place] [address] Assigned PCP 01/02/24 Romie Smith, PhD [address] [place] [address] Assigned Behavioral Health Provider 06/03/24 Valdemar Thompson MD [address] [address] [place] [address] Assigned Heart and Vascular Provider 07/03/24 Kera Gonzalez PA-C [facility] [address] [place] [address] Physician Project Control Officer Dermatology 11/08/24 Kera Gonzalez PA-C Dermatology [address] [place] [address] Assigned Dermatology Provider 01/31/25 documented as of this encounter
--- OUTSIDE RECORDS SUMMARY | 2025-04-06 21:31 | XMS_ITS | Encounter Summary ---
Author Organization [place] Address [address] [facility] [place] [address] Care Team Providers Care Care Professional Name Role Phone Syed Yogesh Unavailable Yogesh Peraza MD Unavailable [phone] Tracy Covarrubias [facility] Unavailable Yogesh Peraza MD Unavailable [phone] Leeanne Pickadr APRN AIRCRAFT DE ICER INSTALLER Unavailable Anyi Ha MD Unavailable [phone] Leeanne Pickard APRN AIRCRAFT DE ICER INSTALLER Primary Care Provider + Valdemar Thompson MD Unavailable Jenni Camacho BUSINESS OWNER/ENGINEER AIRCRAFT DE ICER INSTALLER Unavailable Mario Tsang RN Unavailable Unavailable Isaac Hennessy PA-C Unavailable [phone] Yogesh Peraza MD Unavailable Yogesh Peraza MD Unavailable [phone] Wendy Francis MD Unavailable [phone] [facility] Unavail able Noemi Calle RN Unavailable Unavailable Wendy Francis MD Unavailable [phone] Carmela PalmerC Primary Care Provider [phone] Ishmael Austin MD Unavailable Carmela Palmer PA-C Unavailable [phone] Romie Smith PhD Unavailable [phone] Valdemar Thompson MD Unavailable Kera Gonzalez PA-C Unavailable [phone] Kera Gonzalez PA-C Unavailable [phone] Encounter Details Date Type Department Care Team (Late st Contact Info) Description 07/25/2023 MyC Medical Advice [facility] Blood and Marrow Transplant Program [address] [address] Mario Tsang RN Social History Tobacco Use Types Packs/Day [...] on file Legal 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 Female 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 Gender Identity Not on file Sexual Orientation Not on file documented as of this encounter Plan of Treatment Not on file documented as of this encounter Visit Diagnoses Not on filedocumented in this encounter Care Teams Care Professional Relationship Specialty Start Date End Date Leeanne Pickard APRN AIRCRAFT DE ICER INSTALLER PCP - General Family Medicine 07/27/22 11/09/23 Carmela Palmer PA-C [address] [place] [address] PCP - General Family Medicine 12/13/23 Yogesh Lynch [address] [place], [place] 334086 Referring Physician Medical Oncology 07/22/21 Yogesh Peraza MD [address] [place] [address] BMT Physician Transplant 08/25/21 [facility] B[facility] - Adult 08/30/21 06/15/24 Yogesh Peraza MD [address] [place] [address] Assigned Cancer Care Provider 10/24/21 Leeanne Pickard APRN AIRCRAFT DE ICER INSTALLER Assigned PCP 12/10/21 10/04/23 Anyi Ha MD [address] [place] [address] Assigned OBGYN Provider 03/19/22 Valdemar Thompson MD [address]405 [facility] [address] [place] [address] Cardiovascular Disease 07/27/22 Jenni Camacho APRN CNP [address] [place] [address] Nurse Practitioner Hematology & Oncology 09/16/22 [facility] Nurse Coordinator Transplant 06/07/23 11/19/23 Isaac Hennessy, PALavelleC [address] [place] [address] Assigned Heart and Vascular Provider 05/20/23 07/02/24 Yogesh Peraza MD [address] [place] [address] Hematology 06/21/23 Yogesh Peraza MD [address] [place] [address] Hematology 06/21/23 Wendy Francis MD [address] [place] [address] 749845 Physical Medicine and Rehabilitation 08/28/[address] [address] Assigned PCP 10/05/23 01/01/24 Noemi Calle, DEANGELO BMT Nurse Coordinator Transplant 11/20/23 Wendy Francis MD [address] [place] [address] 639695 Assigned Neuroscience Provider 11/24/23 Ishmael Austin MD [address] [place] [address] 859605 Dermatology 12/15/23 Carmela Palmer PA-C [address] [place] [phone] Assigned PCP 01/02/24 Romie Smith, PhD [address] [place] [phone] Assigned Behavioral Health Provider 06/03/24 Valdemar Thompson MD [address] 573625 Assigned Heart and Vascular Provider 07/03/24 Kera Gonzalez PA-C Dermatology [address] [place] [address] Physician Wedger And Gluer Dermatology 11/08/24 Kera Gonzalez PA-C Dermatology [address] [place] [address] Assigned Dermatology Provider 01/31/25 documented as of this encounter
--- OUTSIDE RECORDS SUMMARY | 2025-04-06 21:31 | XMS_ITS | Encounter Summary ---
Author Organization [place] Address [facility] [place] [address] Care Team Providers Care Janitor Supervisor Name Role Phone Larrymarychuy Yogesh Unavailable Yogesh Peraza MD Unavailable [phone] Tracy Covarrubias [facility] Unavailable Yogesh Peraza MD Unavailable +[phone] Leeanne Pickard APRN JUNIOR TECHNICAL WRITER Unavailable [phone] Anyi Ha MD Unavailable [phone] Leeanne Pickard APRN JUNIOR TECHNICAL WRITER Primary Care Provider + Valdemar Thompson MD Unavailable Valdemar Thompson MD Unavailable Galo Yun RN Unavailable [phone] Jenni Camacho SAW RUNNER JUNIOR TECHNICAL WRITER Unavailable [facility] Unavailable Unavailable Isaac Hennessy PA-C Unavailable [phone] Yogesh Peraza MD Unavailable +[phone] Yogesh Peraza MD Unavailable +[phone] Wendy Francis MD Unavailable [phone] [facility] Unavail able Noemi Calle RN Unavailable Unavailable Wendy Francis MD Unavailable [phone] Carmela Palmer PA-C Primary Care Provider [phone] Ishmael Austin MD Unavailable Carmela Palmer PA-C Unavailable [phone] TrousdaleRomie perez PhD Unavailable [phone] Valdemar Thompson MD Unavailable Kera Gonzalez PA-C Unavailable [phone] Kera Gonzalez PA-C Unavailable [phone] Encounter Details Date Type Department Care Team (Late st Contact Info) Description 02/01/2023 MyC Medical Advice [facility] Blood and Marrow Transplant Program [address] [address] Yogesh Peraza MD [address] [place] [address] Social History Tobacco Use Types Packs/Day [...] PHQ-2 Answer Date Recorded PHQ-2 Score 0 07/12/2022 Comments No Sex and Gender Information Value Date Recorded Sex Assigned at Not on file Legal Sex Female 4:09 AM PEDIATRIC DIETICIAN Gender Identity Not on file Sexual Orientation Not on file COVID-19 Exposure Response Date Recorded In the last 10 days, have yo u been in contact with someone who was confirmed or suspected to have Coronavirus/COVID-19? No / Unsure 01/17/2023 9:01 AM CDT documented as of this encounter Plan of Treatment Not on file documented as of this encounter Visit Diagnoses Not on filedocumented in this encounter Additional Health Concerns Infection Onset Date Last Indicated Resolved Time Rule Out COVID-19 01/17/2023 01/17/2023 02/07/2023 11:39 PM CDT documented as of this encounter Care Teams Janitor Supervisor Relationship Specialty Start Date End Date Leeanne Pickard APRN JUNIOR TECHNICAL WRITER PCP - General Family Medicine 07/27/22 11/09/23 Carmela Palmer PA-C [address] [place] [phone] PCP - General Family Medicine 12/13/23 Yogesh Lynch [address] [place] [address] 042406 Referring Physician Medical Oncology 07/22/21 Yogesh Peraza MD [address] [place], [place] 240786 BMT Physician Transplant 08/25/21 Tracy Covarrubias, [facility] Research Tech BMT - Adult 08/30/21 06/15/24 Yogesh Peraza MD [address] [place] [address] Assigned Cancer Care Provider 10/24/21 Leeanne Pickard APRN JUNIOR TECHNICAL WRITER Assigned PCP 12/10/21 10/04/23 Anyi Ha MD [address] [place] [address] Assigned OBGYN Provider 03/19/22 Valdemar Thompson MD [address] [facility] [address] [place] [address] Cardiovascular Disease 07/27/22 Valdemar Thompson MD 6[address] [facility] [address] [place] [address] Assigned Heart and Vascular Provider 08/06/22 05/19/23 Galo Yun, DEANGELO Specialty Customer Solutions Representative BMT - Adult 09/16/22 06/06/23 Jenni Camacho APRN JUNIOR TECHNICAL WRITER [address] [place] [address] 444215 Nurse Practitioner Hematology & Oncology 09/16/22 [facility] RN BMT Nurse Coordinator Transplant 06/07/23 11/19/23 Isaac Hennessy, PALavelleC 6405 [place] [address] Assigned Heart and Vascular Provider 05/20/23 07/02/24 Yogesh Peraza MD [address] [place], [place] 978626 Hematology 06/21/23 Yogesh Peraza MD [address] [place], [place] 524846 Hematology 06/21/23 Wendy Francis MD [address] [place] [address] Physical Medicine and Rehabilitation 08/28/23 [facility] [address] [place] [address] Assigned PCP 10/05/23 01/01/24 Noemi Calle, RN BMT Nurse Coordinator Transplant 11/20/23 Wendy Francis MD [address] [place] [address] Assigned Neuroscience Provider 11/24/23 Ishmael Austin MD [address] [place] [address] 596515 Dermatology 12/15/23 Carmela Palemr, PA-C [address] [place] [phone] Assigned PCP 01/02/24 Romie Smith, PhD [address] [place] [phone] Assigned Behavioral Health Provider 06/03/24 Valdemar Thompson MD [address] 199145 Assigned Heart and Vascular Provider 07/03/24 Kera Gonzalez PA-C Dermatology [address] [place] [address] [phone] Physician Stencil Sprayer Dermatology 11/08/24 Kera Gonzalez PA-C Dermatology [address] [place] [address] Assigned Dermatology Provider 01/31/25 documented as of this encounter
--- OUTSIDE RECORDS SUMMARY | 2025-04-06 21:31 | XMS_ITS | Encounter Summary ---
Author Organization [place] Address [facility] [place] [address] Care Team Providers Care Word Processor Name Role Phone Nahum Naylor PA-C Primary Care Provider Yogesh Lynch Unavailable Yogesh Peraza MD Unavailable [phone] Tracy Covarrubias [facility] Unavailable Yogesh Peraza MD Unavailable [phone] Ref-Primary, Physician Primary Care Provider Leeanne Pickard APRN RESERVATION MANAGER Unavailable Anyi Ha MD Unavailable [phone] Leeanne Pickard APRN RESERVATION MANAGER Primary Care Provider + Valdemar Thompson MD Unavailable Valdemar Thompson MD Unavailable Galo Yun RN Unavailable [phone] Jenni Camacho [employer] RESERVATION MANAGER Unavailable Jenni Camacho [employer] RESERVATION MANAGER Unavailable Mario Tsang RN Unavailable Unavailable Isaac Hennessy PA-C Unavailable [phone] Yogesh Peraza MD Unavailable +[phone] Yogesh Perzaa MD Unavailable +[phone] Wendy Francis MD Unavailable [phone] [facility] Unavail able Noemi Calle RN Unavailable Unavailable Wendy Francis MD Unavailable [phone] Carmela Palmer PA-C Primary Care Provider [phone] Ishmael Austin MD Unavailable Carmela Palmer PA-C Unavailable [phone] Romie Smith PhD Unavailable [phone] Valdemar Thompson MD Unavailable Kera Gonzalez PA-C Unavailable [phone] Kera Gonzalez PA-C Unavailable [phone] Encounter Details Date Type Department Care Team (Late st Contact Info) Description 08/23/2021 [facility] [address] [address] Ruby Wasserman, DEANGELO Social History Tobacco Use Types Packs/Day Years Used Date Smoking Tobacco: Never Assessed PHQ-2 Answer Date Recorded PHQ-2 Score 0 08/27/2021 Comments No Sex and Gender Information Value Date Recorded Sex Assigned at Not on file Legal Sex Female 4:09 AM PRESS TENDER Gender Identity Not on file Sexual Orientation Not on file COVID-19 Exposure Response Date Recorded In the last month, have you been in contact with someone who was confirmed or suspected to have Coronavirus / COVID-19? No / Unsure 08/26/2021 7:38 AM PRESS TENDER documented as of this encounter Plan of Treatment Not on file documented as of this encounter Visit Diagnoses Not on filedocumented in this encounter Additional Health Concerns Infection Onset Date Last Indicated Resolved Time Rule Out C-difficile 09/08/2021 09/08/2021 021 11:21 PM PRESS TENDER Rule Out C-difficile 09/17/2021 09/17/2021 022 11:45 PM PRESS TENDER Rule Out C-difficile 09/29/2021 09/29/2021 022 1:50 PM PRESS TENDER Rule Out C-difficile 01/10/2022 01/10/2022 022 8:47 PM CDT Rule Out COVID-19 03/07/2022 03/07/2022 03/07/2022 8:27 PM CDT Rule Out COVID-19 06/16/2022 06/16/2022 06/16/2022 1:15 PM CDT Rule Out COVID-19 09/30/2022 09/30/2022 09/30/2022 10:10 PM PRESS TENDER Rule Out Pertussis 01/15/2023 01/17/2023 8:11 AM CDT Rule Out COVID-19 01/17/2023 01/17/2023 02/07/2023 11:39 PM CDT documented as of this encounter Care Teams Word Processor Relationship Specialty Start Date End Date Nahum Naylor PA-C [facility] [address] [place] [address] PCP - General Internal Medicine 07/22/21 12/16/21 No Ref-Primary, Physician PCP - General 12/17/21 07/26/22 Leeanne Pickard APRN CNP PCP - General Family Medicine 07/27/22 11/09/23 Carmela Palmer PA-C [address] [place] [phone] PCP - General Family Medicine 12/13/23 Yogesh Lynch [address] [place] [address] Referring Physician Medical Oncology 07/22/21 Yogesh Peraza MD [address] [place] [address] BMT Physician Transplant 08/25/21 Satish Tracy Khan, [facility] Hammer Operator BMT - Adult 08/30/21 06/15/24 Yogesh Peraza MD [address] [place] [address] Assigned Cancer Care Provider 10/24/21 Leeanne Pickard APRN RESERVATION MANAGER Assigned PCP 12/10/21 10/04/23 Anyi Ha MD [address] [place] [address] Assigned OBGYN Provider 03/19/22 Valdemar Thompson MD [address] [facility] [address] [place] [address] Cardiovascular Disease 07/27/22 Valdemar Thompson MD [address] [facility] [address] [place] [address]995 Assigned Heart and Vascular Provider 08/06/22 05/19/23 Galo Yun, RN Specialty Journeyman Power Plant Operator BMT - Adult 09/16/22 06/06/23 Jenni Camacho APRN RESERVATION MANAGER [address] [place] [address] Nurse Practitioner Hematology & Oncology 09/16/22 Jenni Camacho APRN RESERVATION MANAGER [address] [place] [address] Nurse Practitioner Hematology & Oncology 09/16/22 [facility] Nurse Coordinator Transplant 06/07/23 11/19/23 Isaac Hennessy PA-C [address]405 [place] [address] Assigned Heart and Vascular Provider 05/20/23 07/02/24 Yogesh Peraza MD [address] [place] [address] Hematology 06/21/23 Yogesh Peraza MD [address] [place] [address] 263786 Hematology 06/21/23 Wendy Francis MD [address] [place] [address] 700645 Physical Medicine and Rehabilitation 08/28/[address] [address] Assigned PCP 10/05/23 01/01/24 Noemi Calle, DEANGELO BMT Nurse Coordinator Transplant 11/20/23 Wendy Francis MD [address] [place] [address] 943085 Assigned Neuroscience Provider 11/24/23 Ishmael Austin MD [address] [place] [address] Dermatology 12/15/23 Carmela Palmer PA-C [address] [place] [address] Assigned PCP 01/02/24 Romie Smith, PhD [address] [place] [phone] Assigned Behavioral Health Provider 06/03/24 Valdemar Thompson MD [address] [facility] [address] [place] [address] Assigned Heart and Vascular Provider 07/03/24 Kera Gonzalez PA-C [facility] [address] [place] [address] Physician Oracle Specialist Dermatology 11/08/24 Kera Gonzalez PA-C Dermatology [address] [place] [address] Assigned Dermatology Provider 01/31/25 documented as of this encounter
--- OUTSIDE RECORDS SUMMARY | 2025-04-06 21:31 | XMS_ITS | Encounter Summary ---
Author Organization [place] Address [facility] [place] [address] Care Team Providers Care Newsagent Name Role Phone Nahum Naylor PA-C Primary Care Provider [phone] Yogesh Lynch Unavailable Yogesh Peraza MD Unavailable [phone] Tracy Covarrubias [facility] Unavailable Yogesh Peraza MD Unavailable [phone] Ref-Primary, Physician Primary Care Provider Leeanne Pickard APRN BUS VAN DRIVER Unavailable Anyi Ha MD Unavailable [phone] Leeanne Pickard APRN BUS VAN DRIVER Primary Care Provider + Valdemar Thompson MD Unavailable Valdemar Thompson MD Unavailable Galo Yun RN Unavailable [phone] Jenni Camacho STAPLE PROCESSING MACHINE OPERATOR BUS VAN DRIVER Unavailable Jenni Camacho STAPLE PROCESSING MACHINE OPERATOR BUS VAN DRIVER Unavailable Mario Tsang RN Unavailable Unavailable Isaac Hennessy PA-C Unavailable [phone] Yogesh Peraza MD Unavailable +[phone] Yogesh Peraza MD Unavailable +[phone] Wendy Francis MD Unavailable [phone] [facility] Unavail able Noemi Calle RN Unavailable Unavailable Wendy Francis MD Unavailable [phone] Carmela Palmer PA-C Primary Care Provider Ishmael Austin MD Unavailable Carmela Palmer PA-C Unavailable [phone] Romie Smith PhD Unavailable [phone] Valdemar Thompson MD Unavailable Kera Gonzalez PA-C Unavailable [phone] Kera Gonzalez PA-C Unavailable [phone] Encounter Details Date Type Department Care Team (Late st Contact Info) Description 12/07/2021 [facility] Medical Advice [facility] Blood and Marrow Transplant Program [address] [address] Rosmery Espinoza Social History Tobacco Use Types Packs/Day Years Used Date Smoking Tobacco: Former Cigarettes Q uit: 2004 Smokeless Tobacco: Never PHQ-2 Answer Date Recorded PHQ-2 Score 0 08/27/2021 Comments No Sex and Gender Information Value Date Recorded Sex Assigned at Not on file Legal Sex Female 4:09 AM DOUGH SHEETER Gender Identity Not on file Sexual Orientation Not on file COVID-19 Exposure Response Date Recorded In the last month, have you been in contact with someone who was confirmed or suspected to have Coronavirus / COVID-19? No / Unsure 12/09/2021 10:05 AM CDT documented as of this encounter [...] Out COVID-19 09/30/2022 09/30/2022 09/30/2022 10:10 PM DOUGH SHEETER Rule Out Pertussis 01/15/2023 01/17/2023 8:11 AM CDT Rule Out COVID-19 01/17/2023 01/17/2023 02/07/2023 11:39 PM CDT documented as of this encounter Care Teams Newsagent Relationship Specialty Start Date End Date Nahum Naylor PA-C [facility] [address] [place], [place] [address] PCP - General Internal Medicine 07/22/21 12/16/21 No Ref-Primary, Physician PCP - General 12/17/21 07/26/22 Leeanne Pickard APRN CNP PCP - General Family Medicine 07/27/22 11/09/23 Carmela Palmer PA-C [address] [place] [phone] PCP - General Family Medicine 12/13/23 Yogesh Lynch [facility] [place], [place] [address] Referring Physician Medical Oncology 07/22/21 Yogesh Peraza MD [facility] [place] [address] BMT Physician Transplant 08/25/21 Tracy Covarrubias, [facility] Oil Expeller Operator BMT - Adult 08/30/21 06/15/24 Yogesh Peraza MD [address] [place], [place] 142446 Assigned Cancer Care Provider 10/24/21 Leeanne Pickard APRN BUS VAN DRIVER Assigned PCP 12/10/21 10/04/23 Anyi Ha MD [address] [place] [address] Assigned OBGYN Provider 03/19/22 Valdemar Thompson MD [address] [facility] [address] [place] [address] Cardiovascular Disease 07/27/22 Valdemar Thompson MD [address] [facility] [address] [place] [address] Assigned Heart and Vascular Provider 08/06/22 05/19/23 Galo uYn RN Specialty Block Cutter BMT - Adult 09/16/22 06/06/23 Jenni Camacho APRN BUS VAN DRIVER [address] [place] [address] Nurse Practitioner Hematology & Oncology 09/16/22 Jenni Camacho APRN BUS VAN DRIVER [address] [place] [address] Nurse Practitioner Hematology & Oncology 09/16/22 Mario Tsang RN BMT Nurse Coordinator Transplant 06/07/23 11/19/23 Isaac Hennessy PA-C [address] [place] [address] Assigned Heart and Vascular Provider 05/20/23 07/02/24 Yogesh Peraza MD [address] [place] [address] Hematology 06/21/23 Yogesh Peraza MD [address] [place] [address] Hematology 06/21/23 Wendy Francis MD [address] [place] [address] [phone] Physical Medicine and Rehabilitation 08/28/23 [facility] [address] [place], [place] [phone] Assigned PCP 10/05/23 01/01/24 Noemi Calle, DEANGELO BMT Nurse Coordinator Transplant 11/20/23 Wendy Francis MD [address] [place] [address] Assigned Neuroscience Provider 11/24/23 Ishmael Austin MD [address] [place] [address] 664915 Dermatology 12/15/23 Carmela Palmer PA-C [address] [place] [address] Assigned PCP 01/02/24 Romie Smith PhD [address] [place] [phone] Assigned Behavioral Health Provider 06/03/24 Valdemar Thompson MD [address] [facility] [address] [place] [address] Assigned Heart and Vascular Provider 07/03/24 Kera Gonzalez PA-C Dermatology [address] [place] [address] Physician Diesel Bus Mechanic Dermatology 11/08/24 Kera Gonzalez PA-C Dermatology [address] [place] [address] Assigned Dermatology Provider 01/31/25 documented as of this encounter
--- OUTSIDE RECORDS SUMMARY | 2025-04-06 21:31 | XMS_ITS | Encounter Summary ---
Author Organization [place] Address [facility] [place] [address] Care Team Providers Care Occupational Health And Safety Manager Name Role Phone DiliayayoYogesh Unavailable Yogesh Peraza MD Unavailable [phone] Tracy Covarrubias [facility] Unavailable Yogesh Peraza MD Unavailable [phone] Ref-Primary, Physician Primary Care Provider Leeanne Pickard APRN RECRUITMENT SPECIALIST Unavailable Anyi Ha MD Unavailable [phone] Leeanne Pickard CAR INSPECTION AND REPAIR MANAGER RECRUITMENT SPECIALIST Primary Care Provider + Valdemar Thompson MD Unavailable Valdemar Thompson MD Unavailable Galo Yun RN Unavailable [phone] Jenni Camacho CAR INSPECTION AND REPAIR MANAGER RECRUITMENT SPECIALIST Unavailable Jenni Camacho CAR INSPECTION AND REPAIR MANAGER RECRUITMENT SPECIALIST Unavailable Mario Tsang RN Unavailable Unavailable Isaac Hennessy PA-C Unavailable [phone] Yogesh Peraza MD Unavailable [phone] Yogesh Peraza MD Unavailable [phone] Wendy Francis MD Unavailable [phone] [facility] Unavail able Noemi Calle RN Unavailable Unavailable Wendy Francis MD Unavailable [phone] Carmela Palmer PA-C Primary Care Provider Ishmael Austin MD Unavailable Carmela Palmer PA-C Unavailable [phone] Romie Smith PhD Unavailable [phone] Valdemar Thompson MD Unavailable Kera Gonzalez PA-C Unavailable [phone] Kera Gonzalez PA-C Unavailable [phone] Encounter Details Date Type Department Care Team (Late st Contact Info) Description 01/04/2022 MyC Medical Advice [facility] Blood and Marrow Transplant Program [address] [address] Rosmery Espinoza Social History Tobacco Use Types Packs/Day Years Used Date Smoking Tobacco: Former Cigarettes Q uit: 2004 Smokeless Tobacco: Never PHQ-2 Answer Date Recorded PHQ-2 Score 2 01/07/2022 Comments No Sex and Gender Information Value Date Recorded Sex Assigned at Not on file Legal Sex Female 4:09 AM MEMBER OF THE LEGISLATIVE ASSEMBLY Gender Identity Not on file Sexual Orientation Not on file COVID-19 Exposure Response Date Recorded In the last 10 days, have yo u been in contact with someone who was confirmed or suspected to have Coronavirus/COVID-19? No / Unsure 01/07/2022 12:43 PM CDT documented as of this encounter Plan [...] Out COVID-19 09/30/2022 09/30/2022 09/30/2022 10:10 PM MEMBER OF THE LEGISLATIVE ASSEMBLY Rule Out Pertussis 01/15/2023 01/17/2023 8:11 AM CDT Rule Out COVID-19 01/17/2023 01/17/2023 02/07/2023 11:39 PM CDT documented as of this encounter Care Teams Occupational Health And Safety Manager Relationship Specialty Start Date End Date No Ref-Primary, Physician PCP - General 12/17/21 07/26/22 Leeanne Pickard APRN RECRUITMENT SPECIALIST PCP - General Family Medicine 07/27/22 11/09/23 Carmela Palmer PA-C [address] [place] [address] PCP - General Family Medicine 12/13/23 Yogesh Lynch [address] [place] [address] [id number] Referring Physician Medical Oncology 07/22/21 Yogesh Peraza MD [address] [place], [place] 813506 BMT Physician Transplant 08/25/21 Tracy Covarrubias [facility] Hardening Machine Operator BMT - Adult 08/30/21 06/15/24 Yogesh Peraza MD [address] [place], [place] 261406 Assigned Cancer Care Provider 10/24/21 Leeanne Pickard APRN RECRUITMENT SPECIALIST Assigned PCP 12/10/21 10/04/23 Anyi Ha MD [address] [place] [address] Assigned OBGYN Provider 03/19/22 Valdemar Thompson MD [address] [facility] [address] [place] [address] Cardiovascular Disease 07/27/22 Valdemar Thompson MD [address] [facility] [address] [place] [address] Assigned Heart and Vascular Provider 08/06/22 05/19/23 Galo Yun RN Specialty Market Research Specialist BMT - Adult 09/16/22 06/06/23 Jenni Camacho APRN RECRUITMENT SPECIALIST [address] [phone] Nurse Practitioner Hematology & Oncology 09/16/22 Jenni Camacho APRN RECRUITMENT SPECIALIST [address] [address] Nurse Practitioner Hematology & Oncology 09/16/22 Mario Tsang RN BMT Nurse Coordinator Transplant 06/07/23 11/19/23 Isaac Hennessy, PA-C [address] [place] [address] Assigned Heart and Vascular Provider 05/20/23 07/02/24 Yogesh Peraza MD [address] [place] [address] Hematology 06/21/23 Yogesh Peraza MD [address] [place] [address] Hematology 06/21/23 Wendy Francis MD [address] [place] [address] Physical Medicine and Rehabilitation 08/28/23 [facility] [address] [place], [place] [phone] Assigned PCP 10/05/23 01/01/24 Noemi Calle, RN BMT Nurse Coordinator Transplant 11/20/23 Wendy Francis MD [address] [place] [address] 322245 Assigned Neuroscience Provider 11/24/23 Ishmael Austin MD [address] [place] [address] 151515 Dermatology 12/15/23 Carmela Palmer, PA-C [address] [place] [address] Assigned PCP 01/02/24 Romie Smith, PhD [address] [place] [phone] Assigned Behavioral Health Provider 06/03/24 Valdemar Thompson MD [address] [facility] [address] [place] 385205 Assigned Heart and Vascular Provider 07/03/24 Kera Gonzalez PA-C Dermatology [address] [place] [address] Physician Copy Preparer Dermatology 11/08/24 Kera Gonzalez PA-C Dermatology [address] [place] [address] Assigned Dermatology Provider 01/31/25 documented as of this encounter
--- OUTSIDE RECORDS SUMMARY | 2025-04-06 21:31 | XMS_ITS | Encounter Summary ---
Author Organization [place] Address [address] [place] [address] Care Team Providers Care Entry Level Mechanical Engineer Name Role Phone Syed Yogesh Unavailable Yogesh Peraza MD Unavailable [phone] [facility] Unavailable Yogesh Peraza MD Unavailable [phone] Leeanne Pickard APRN INCIDENT MANAGER Unavailable Anyi Ha MD Unavailable [phone] Leeanne Pickard APRN INCIDENT MANAGER Primary Care Provider + Valdemar Thompson MD Unavailable Jenni Camacho CARDIOLOGY TEACHER INCIDENT MANAGER Unavailable Mario Tsang RN Unavailable Unavailable Isaac Hennessy PA-C Unavailable [phone] Yogesh Peraza MD Unavailable [phone] Yogesh Peraza MD Unavailable [phone] Wendy Francis MD Unavailable [phone] [facility] Unavail able Noemi Calle RN Unavailable Unavailable Wendy Francis MD Unavailable [phone] Carmela PalmerC Primary Care Provider [phone] Ishmael Austin MD Unavailable Carmela Palmer PA-C Unavailable [phone] Romie Smith PhD Unavailable [phone] Valdemar Thompson MD Unavailable Kera Gonzalez PA-C Unavailable [phone] Kera Gonzalez PA-C Unavailable [phone] Encounter Details Date Type Department Care Team (Late st Contact Info) Description 07/11/2023 MyC Medical Advice [facility] [address] [place] [address] Rossi Gaines GC Genetic Counseling Graduate Program Office [address] [place] [address] [phone] [place] [address] Social History Tobacco Use Types Packs/Day [...] on file Legal Sex Female 4:09 AM DUMPCART DRIVER Gender Identity Not on file Sexual Orientation Not on file COVID-19 Exposure Response Date Recorded In the last 10 days, have yo u been in contact with someone who was confirmed or suspected to have Coronavirus/COVID-19? No / Unsure 06/16/2023 9:50 AM CDT documented as of this encounter Plan of Treatment Not on file documented as of this encounter Visit Diagnoses Not on filedocumented in this encounter Care Teams Entry Level Mechanical Engineer Relationship Specialty Start Date End Date Leeanne Pickard APRN INCIDENT MANAGER PCP - General Family Medicine 07/27/22 11/09/23 Carmela Palmer PA-C [address] [place] [phone] PCP - General Family Medicine 12/13/23 Yogesh Lynch [address] [place], [place] 0[address]416 Referring Physician Medical Oncology 07/22/21 Yogesh Peraza MD [address] [place], [place] 860276 BMT Physician Transplant 08/25/21 Tracy Covarrubias, [facility] Senior Foreman BMT - Adult 08/30/21 06/15/24 Yogesh Peraza MD [address] [place] [address] Assigned Cancer Care Provider 10/24/21 Leeanne Pickard APRN INCIDENT MANAGER Assigned PCP 12/10/21 10/04/23 Anyi Ha MD [address] [place] [address] Assigned OBGYN Provider 03/19/22 Valedmar Thompson MD [address] [address] Cardiovascular Disease 07/27/22 Jenni Camacho APRN INCIDENT MANAGER [address] [place] [address] Nurse Practitioner Hematology & Oncology 09/16/22 [facility] Coord[facility] Transplant 06/07/23 11/19/23 Isaac Hennessy, PALavelleC [address] [place] [address] Assigned Heart and Vascular Provider 05/20/23 07/02/24 Yogesh Peraza MD [address] [place] [address] Hematology 06/21/23 Yogesh Peraza MD [address] [place] [address] Hematology 06/21/23 Wendy Francis MD [address] [place] [address] Physical Medicine and Rehabilitation 08/28/[address] [address] Assigned PCP 10/05/23 01/01/24 Noemi Calle, DEANGELO BMT Nurse Coordinator Transplant 11/20/23 Wendy Francis MD [address] [place] [address] Assigned Neuroscience Provider 11/24/23 Ishmael Austin MD [address] [place] [address] Dermatology 12/15/23 Carmela Palmer PA-C [address] [place] [address] Assigned PCP 01/02/24 Romie Smith, PhD [address] [place] [phone] Assigned Behavioral Health Provider 06/03/24 Valdemar Thompson MD [address] [address] Assigned Heart and Vascular Provider 07/03/24 Kera Gonzalez PA-C Dermatology [address] [place] [address] Physician Forms Designer Dermatology 11/08/24 Kera Gonzalez PA-C Dermatology [address] [place] [address] Assigned Dermatology Provider 01/31/25 documented as of this encounter
--- OUTSIDE RECORDS SUMMARY | 2025-04-06 21:31 | XMS_ITS | Encounter Summary ---
Author Organization [place] Address [facility] [place] [address] Care Team Providers Care Pharmacy Teacher Name Role Phone Larrymarychuy Yogesh Unavailable Yogesh Peraza MD Unavailable [phone] Tracy Covarrubias [facility] Unavailable Yogesh Peraza MD Unavailable [phone] Leeanne Pickard APRN CONCIERGE MANAGER Unavailable [phone] Anyi Ha MD Unavailable [phone] Leeanne Pickard APRN CONCIERGE MANAGER Primary Care Provider + Valdemar Thompson MD Unavailable Valdemar Thompson MD Unavailable Galo Yun RN Unavailable Jenni Camacho TOOL PLANER SET UP OPERATOR CONCIERGE MANAGER Unavailable [facility] Unavailable Unavailable Isaac Hennessy PA-C Unavailable [phone] Yogesh Peraza MD Unavailable +[phone] Yogesh Peraza MD Unavailable [phone] Wendy Francis MD Unavailable [phone] [facility] Unavail able Noemi Calle RN Unavailable Unavailable Wendy Francis MD Unavailable Carmela Palmer PA-C Primary Care Provider [phone] Ishmael Austin MD Unavailable Carmela Palmer PA-C Unavailable [phone] BurnettRomie perez PhD Unavailable [phone] Valdemar Thompson MD Unavailable Kera Gonzalez PA-C Unavailable [phone] Kera Gonzalez PA-C Unavailable [phone] Encounter Details Date Type Department Care Team (Late st Contact Info) Description 05/04/2023 MyC Medical Advice [facility] Blood and Marrow Transplant Program [address] [address] Yogesh Peraza MD [address] [place] [address] Social History Tobacco Use Types Packs/Day [...] on file Legal Sex Female 4:09 AM EXECUTIVE COMPENSATION ANALYST Gender Identity Not on file Sexual Orientation Not on file COVID-19 Exposure Response Date Recorded In the last 10 days, have yo u been in contact with someone who was confirmed or suspected to have Coronavirus/COVID-19? Unable to assess 04/26/2023 4:23 PM CDT documented as of this encounter Plan of Treatment Not on file documented as of this encounter Visit Diagnoses Not on filedocumented in this encounter Care Teams Pharmacy Teacher Relationship Specialty Start Date End Date Leeanne Pickard APRN CONCIERGE MANAGER PCP - General Family Medicine 07/27/22 11/09/23 Carmela Palmer PA-C [address] [place] [phone] PCP - General Family Medicine 12/13/23 Yogesh Lynch [address] [place] [address] Referring Physician Medical Oncology 07/22/21 Yogesh Peraza MD [address] [place] [address] BMT Physician Transplant 08/25/21 Tracy Covarrubias, [facility] Net Sql Developer BMT - Adult 08/30/21 06/15/24 Yogesh Peraza MD [address] [place] [address] 910296 Assigned Cancer Care Provider 10/24/21 Leeanne Pickard APRN CONCIERGE MANAGER Assigned PCP 12/10/21 10/04/23 Anyi Ha MD [address] [place] [address] Assigned OBGYN Provider 03/19/22 Valdemar Thompson MD [address] [facility] [address] [place] [address] Cardiovascular Disease 07/27/22 Valdemar Thompson MD [address] [facility] [address] [place] [address] Assigned Heart and Vascular Provider 08/06/22 05/19/23 Galo Yun, DEANGELO Specialty Truer Pinion And Wheel BMT - Adult 09/16/22 06/06/23 Jenni Camacho APRN CNP [address] [place] [address] 685365 Nurse Practitioner Hematology & Oncology 09/16/22 [facility] Nurse Coord[facility] Transplant 06/07/23 11/19/23 Isaac Hennessy, PALavelleC [address] [place] [address] Assigned Heart and Vascular Provider 05/20/23 07/02/24 [place] [address] [place] [address] 599426 Hematology 06/21/23 Yogesh Peraza MD [address] [place] [address] Hematology 06/21/23 Wendy Francis MD [address] [place] [address] Physical Medicine and Rehabilitation 08/28/23 [facility] [address] [place] [address] [phone] Assigned PCP 10/05/23 01/01/24 Noemi Calle, RN BMT Nurse Coordinator Transplant 11/20/23 Wendy Francis MD [address] [place] [address] Assigned Neuroscience Provider 11/24/23 Ishmael Austin MD [address] [place] [address] Dermatology 12/15/23 Carmela Palmer PA-C [address] [place] [phone] Assigned PCP 01/02/24 Romie Smith, PhD [address] [place] [phone] Assigned Behavioral Health Provider 06/03/24 Valdemar Thompson MD [address] [place] [address] Assigned Heart and Vascular Provider 07/03/24 Kera Gonzalez PA-C Dermatology [address] [place] [address] Physician Wood Crafter Dermatology 11/08/24 Kera Gonzalez PA-C Dermatology [address] [place] [address] Assigned Dermatology Provider 01/31/25 documented as of this encounter
--- OUTSIDE RECORDS SUMMARY | 2025-04-06 21:31 | XMS_ITS | Encounter Summary ---
Author Organization [place] Address [address] [facility] [place] [address] Care Team Providers Care Secondary School Teacher Librarian Name Role Phone Syed Yogesh Unavailable Yogesh Peraza MD Unavailable [phone] [facility] Unavailable Yogesh Peraza MD Unavailable +[phone] Leeanne Pickard APRN CAMERA TUNING ENGINEER Unavailable Anyi Ha MD Unavailable [phone] Leeanne Pickard APRN CAMERA TUNING ENGINEER Primary Care Provider + Valdemar Thompson MD Unavailable Jenni Camacho COMBAT SYSTEMS OPERATOR [facility] [place] CAMERA TUNING ENGINEER Unavailable Mario Tsang RN Unavailable Unavailable Isaac Hennessy PA-C Unavailable [phone] Yogesh Peraza MD Unavailable [phone] Yogesh Peraza MD Unavailable [phone] Wendy Francis MD Unavailable [phone] [facility] Unavail able Noemi Calle RN Unavailable Unavailable Wendy Francis MD Unavailable [phone] Carmela PalmerC Primary Care Provider [phone] Ishmael Austin MD Unavailable Carmela Palmer PA-C Unavailable [phone] Romie Smith PhD Unavailable [phone] Valdemar Thompson MD Unavailable Kera Gonzalez PA-C Unavailable [phone] Kera Gonzalez PA-C Unavailable [phone] Encounter Details Date Type Department Care Team (Late st Contact Info) Description 06/22/2023 [facility] Care [address] [place] [address] Maddy Beeview Social History Tobacco Use Types Packs/Day Years [...] on file Legal Sex Female 4:09 AM HOG STICKER Gender Identity Not on file Sexual Orientation [...] on filedocumented in this encounter Care Teams Secondary School Teacher Librarian Relationship Specialty Start Date End Date Leeanne Pickard APRN CAMERA TUNING ENGINEER PCP - General Family Medicine 07/27/22 11/09/23 Carmela Palmer PA-C [address] [place] [address] PCP - General Family Medicine 12/13/23 Yogesh Lynch [address] [place] [address] Referring Physician Medical Oncology 07/22/21 Yogesh Peraza MD [address] [place] [address] BMT Physician Transplant 08/25/21 [facility] Supervisor Dried Yeast BMT - Adult 08/30/21 06/15/24 Yogesh Peraza MD [address] [place] [address] 389496 Assigned Cancer Care Provider 10/24/21 Leeanne Pickard APRN CAMERA TUNING ENGINEER Assigned PCP 12/10/21 10/04/23 Anyi Ha MD [address] [place] [address] Assigned OBGYN Provider 03/19/22 Valdemar Thompson MD [address] [facility] [address] [place] [address] Cardiovascular Disease 07/27/22 Jenni Camacho APRN CAMERA TUNING ENGINEER [address] [place] [address] Nurse Practitioner Hematology & Oncology 09/16/22 [facility] Nurse Coordinator Transplant 06/07/23 11/19/23 Isaac Hennessy, PA-C [address] [place] [address] Assigned Heart and Vascular Provider 05/20/23 07/02/24 [place] [address] [place] [address] Hematology 06/21/23 Yogesh Peraza MD [address] [place] [address] 585696 Hematology 06/21/23 Wendy Francis MD [address] [place] [address] Physical Medicine and Rehabilitation 08/28/23 [facility] [id number] [place] [address] Assigned PCP 10/05/23 01/01/24 Noemi Calle, DEANGELO BMT Nurse Coordinator Transplant 11/20/23 Wendy Francis MD [address] [place] [address] Assigned Neuroscience Provider 11/24/23 Ishmael Austin MD 909 [place], [place] 635695 Dermatology 12/15/23 Carmela Palmer PA-C [address] [place] [phone] Assigned PCP 01/02/24 Romie Smith, PhD 909 [place] [phone] Assigned Behavioral Health Provider 06/03/24 Valdemar Thompson MD [address] [facility] [address] [place], [place] 398715 Assigned Heart and Vascular Provider 07/03/24 Kera Gonzalez PA-C [facility] [address] [place] [address] Physician Document Control Coordinator Dermatology 11/08/24 Kera Gonzalez PA-C [facility] [address] [place] [address] Assigned Dermatology Provider 01/31/25 documented as of this encounter
--- OUTSIDE RECORDS SUMMARY | 2025-04-06 21:31 | XMS_ITS | Encounter Summary ---
Author Organization [place] Address [facility] [place] [address] Care Team Providers Care Associate Professor Of Theology Name Role Phone DiliayayoYogesh Unavailable Yogesh Peraza MD Unavailable [phone] Tracy Covarrubias [facility] Unavailable Yogesh Peraza MD Unavailable [phone] Ref-Primary, Physician Primary Care Provider Leeanne Pickard APRN TURKEY CLEANER Unavailable Anyi Ha MD Unavailable [phone] Leeanne Pickard DISPATCHER MAINTENANCE SERVICE TURKEY CLEANER Primary Care Provider + Valdemar Thompson MD Unavailable Valdemar Thompson MD Unavailable Galo Yun RN Unavailable [phone] Jenni Camacho DISPATCHER MAINTENANCE SERVICE TURKEY CLEANER Unavailable Jenni Camacho DISPATCHER MAINTENANCE SERVICE TURKEY CLEANER Unavailable Mario Tsang RN Unavailable Unavailable Isaac Hennessy PA-C Unavailable [phone] Yogesh Peraza MD Unavailable +[phone] Yogesh Peraza MD Unavailable [phone] Wendy Francis MD Unavailable [phone] [facility] Unavail able Noemi Calle RN Unavailable Unavailable Wendy Francis MD Unavailable [phone] Carmela Palmer PA-C Primary Care Provider [phone] Ishmael Austin MD Unavailable Carmela Palmer PA-C Unavailable [phone] Romie Smith PhD Unavailable [phone] Valdemar Thompson MD Unavailable Kera Gonzalez PA-C Unavailable [phone] Kera Gonzalez PA-C Unavailable [phone] Encounter Details Date Type Department Care Team (Late st Contact Info) Description 05/27/2022 MyC Medical Advice [facility] [address] [address] Ruby Wasserman, RN Social History Tobacco Use Types Packs/Day [...] on file Legal Sex Female 4:09 AM ANIMAL STUNNER Gender Identity Not on file Sexual Orientation Not on file COVID-19 Exposure Response Date Recorded In the last 10 days, have yo u been in contact with someone who was confirmed or suspected to have Coronavirus/COVID-19? No / Unsure 05/26/2022 7:47 AM CDT documented as of this encounter Plan of Treatment Not on file documented as of this encounter Visit Diagnoses Not on filedocumented in this encounter Additional Health Concerns Infection Onset Date Last Indicated Resolved Time Rule Out COVID-19 06/16/2022 06/16/2022 06/16/2022 1:15 PM CDT Rule Out COVID-19 09/30/2022 09/30/2022 09/30/2022 10:10 PM ANIMAL STUNNER Rule Out Pertussis 01/15/2023 01/17/2023 8:11 AM CDT Rule Out COVID-19 01/17/2023 01/17/2023 02/07/2023 11:39 PM CDT documented as of this encounter Care Teams Associate Professor Of Theology Relationship Specialty Start Date End Date No Ref-Primary, Physician PCP - General 12/17/21 07/26/22 Leeanne Pickard APRN CNP PCP - General Family Medicine 07/27/22 11/09/23 Carmela Palmer PA-C [address] [place] [phone] PCP - General Family Medicine 12/13/23 Yogesh Lynch [address] [place], [place] 08[address] Referring Physician Medical Oncology 07/22/21 Yogesh Peraza MD [address] [place] [address] BMT Physician Transplant 08/25/21 Augustabrittany Tracy Romeron, [facility] Jig Grinder BMT - Adult 08/30/21 06/15/24 Yogesh Peraza MD [address] [place] [address] Assigned Cancer Care Provider 10/24/21 Leeanne Pickard APRN TURKEY CLEANER Assigned PCP 12/10/21 10/04/23 Anyi Ha MD [address] [place] [address] Assigned OBGYN Provider 03/19/22 Valdemar Thompson MD [address] [facility] [address] [place] [address] Cardiovascular Disease 07/27/22 Valdemar Thompson MD [address] [facility] [address] [place] [address] Assigned Heart and Vascular Provider 08/06/22 05/19/23 Galo Yun, RN Specialty Measurement Supervisor BMT - Adult 09/16/22 06/06/23 Jenni Camacho APRN TURKEY CLEANER [address] [place] [address] Nurse Practitioner Hematology & Oncology 09/16/22 Jenni Camacho APRN TURKEY CLEANER [address] [address] Nurse Practitioner Hematology & Oncology 09/16/22 [facility] RN BMT Nurse Coordinator Transplant 06/07/23 11/19/23 Isaac Hennessy PA-C [address]405 [place] [address] Assigned Heart and Vascular Provider 05/20/23 07/02/24 [place] [address] [place] [address] Hematology 06/21/23 [place] [address] [place] [address] Hematology 06/21/23 Wendy Francis MD [address] [place] [address] Physical Medicine and Rehabilitation 08/28/23 [facility] [address] [place], [place] [address] Assigned PCP 10/05/23 01/01/24 Noemi Calle, DEANGELO BMT Nurse Coordinator Transplant 11/20/23 Wendy Francis MD [address] [place] [address] Assigned Neuroscience Provider 11/24/23 Ishmael Austin MD [address] [place] [address] 086085 Dermatology 12/15/23 Carmela Palmer PA-C [address] [place] [address] Assigned PCP 01/02/24 Romie Smith, PhD [address] [place] [address] Assigned Behavioral Health Provider 06/03/24 Valdemar Thompson MD [address] [facility] [address] [place], [place] [address] Assigned Heart and Vascular Provider 07/03/24 Kera Gonzalez PA-C Dermatology [address] [place] [address] Physician Outside Cutter Hand Dermatology 11/08/24 Kera Gonzalez PA-C Dermatology [address] [place] [address] Assigned Dermatology Provider 01/31/25 documented as of this encounter
--- OUTSIDE RECORDS SUMMARY | 2025-04-06 21:31 | XMS_ITS | Encounter Summary ---
Author Organization [place] Address [facility] [place] [address] Care Team Providers Care Process Engineer Name Role Phone Larrymarychuy Yogesh Unavailable Yogesh Peraza MD Unavailable [phone] Tracy Covarrubias [facility] Unavailable Yogesh Peraza MD Unavailable +[phone] Leeanne Pickard APRN STEPDOWN NURSE Unavailable [phone] Anyi Ha MD Unavailable [phone] Leeanne Pickard APRN STEPDOWN NURSE Primary Care Provider + Valdemar Thompson MD Unavailable Valdemar Thompson MD Unavailable Galo Yun RN Unavailable [phone] Jenni Camacho BOBBIN DUMPER STEPDOWN NURSE Unavailable [facility] RN Unavailable Unavailable Isaac Hennessy PA-C Unavailable [phone] Yogesh Peraza MD Unavailable +[phone] Yogesh Peraza MD Unavailable +[phone] Wendy Francis MD Unavailable [phone] [facility] Unavail able Noemi Calle RN Unavailable Unavailable Wendy Francis MD Unavailable [phone] Carmela Palmer PA-C Primary Care Provider Ishmael Austin MD Unavailable Carmela Palmer PA-C Unavailable [phone] CoconinoRomie perez PhD Unavailable [phone] Valdemar Thompson MD Unavailable Kera Gonzalez PA-C Unavailable [phone] Kera Gonzalez PA-C Unavailable [phone] Encounter Details Date Type Department Care Team (Late st Contact Info) Description 01/11/2023 MyC Medical Advice [facility] Blood and Marrow Transplant Program [address] [address] Yogesh Peraza MD [address] [place] [address] Social History Tobacco Use Types Packs/Day [...] on file 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 No / Unsure 01/06/2023 9:39 AM CDT documented as of this encounter Plan of Treatment Not on file documented as of this encounter Visit Diagnoses Not on filedocumented in this encounter Additional Health Concerns Infection Onset Date Last Indicated Resolved Time Rule Out Pertussis 01/15/2023 01/17/2023 8:11 AM CDT Rule Out COVID-19 01/17/2023 01/17/2023 02/07/2023 11:39 PM CDT documented as of this encounter Care Teams Process Engineer Relationship Specialty Start Date End Date Leeanne Pickard APRN CNP PCP - General Family Medicine 07/27/22 11/09/23 Carmela Palmer PA-C [address] [place] [phone] PCP - General Family Medicine 12/13/23 Yogesh Lynch [address] [place] [address] 697696 Referring Physician Medical Oncology 07/22/21 Yogesh Peraza MD [address] [place] [address] BMT Physician Transplant 08/25/21 Tracy Covarrubias, [facility] Commodities Requirements Analyst BMT - Adult 08/30/21 06/15/24 [place] [address] [place] [address] 034186 Assigned Cancer Care Provider 2/13/22 Leeanne Pickard APRN STEPDOWN NURSE Assigned PCP 12/10/21 10/04/23 Anyi Ha MD [address] [place] [address] Assigned OBGYN Provider 03/19/22 Valdemar Thompson MD [address] 4115100 [place], [place] 162545 Cardiovascular Disease 07/27/22 Valdemar Thompson MD [address] 4115100 [place], [place] 322875 Assigned Heart and Vascular Provider 08/06/22 05/19/23 Galo Yun RN Specialty Vehicle Service Attendant BMT - Adult 09/16/22 06/06/23 Jenni Camacho APRN STEPDOWN NURSE [address] [place] [address] Nurse Practitioner Hematology & Oncology 09/16/22 Mario Tsang RN BMT Nurse Coordinator Transplant 06/07/23 11/19/23 Isaac Hennessy, PALavelleC 6405 [place] [address] Assigned Heart and Vascular Provider 05/20/23 07/02/24 Yogesh Peraza MD [address] [place] [address] Hematology 06/21/23 Yogesh Peraza MD [address] [place] [address] Hematology 06/21/23 Wendy Francis MD [address] [place] [address] Physical Medicine and Rehabilitation 08/28/23 [facility] [address] [place] [address] Assigned PCP 10/05/23 01/01/24 Noemi Calle, DEANGELO BMT Nurse Coordinator Transplant 11/20/23 Wendy Francis MD [address] [place] [address] 437395 Assigned Neuroscience Provider 11/24/23 Ishmael Austin MD [address] [place] [address] 768715 Dermatology 12/15/23 Carmela Palmer PA-C [address] [place] [address] Assigned PCP 01/02/24 Romie Smith, PhD [address] [place] [phone] Assigned Behavioral Health Provider 06/03/24 Valdemar Thompson MD [address] [facility] [address] [place] [address] Assigned Heart and Vascular Provider 07/03/24 Kera Gonzalez PA-C Dermatology [address] [place] [address] Physician Wine Blender Dermatology 11/08/24 Kera Gonzalez PA-C Dermatology [address] [place] [address] Assigned Dermatology Provider 01/31/25 documented as of this encounter
--- OUTSIDE RECORDS SUMMARY | 2025-04-06 21:31 | XMS_ITS | Encounter Summary ---
Author Organization [place] Address [address] [place] [address] Care Team Providers Care Ropewalk Rope Maker Name Role Phone Syed Yogesh Unavailable Yogesh Peraza MD Unavailable [phone] Tracy Covarrubias [facility] Unavailable Yogesh Peraza MD Unavailable [phone] Leeanne Pickard APRN MANAGER TESTING Unavailable Anyi Ha MD Unavailable [phone] Leeanne Pickard APRN MANAGER TESTING Primary Care Provider + Valdemar Thompson MD Unavailable Jenni Camacho INSULATOR TESTER MANAGER TESTING Unavailable Mario Tsang RN Unavailable Unavailable Isaac Hennessy PA-C Unavailable [phone] Yogesh Peraza MD Unavailable [phone] Yogesh Peraza MD Unavailable [phone] Wendy Francis MD Unavailable [phone] [facility] Unavail able Noemi Calle RN Unavailable Unavailable Wendy Francis MD Unavailable [phone] Carmela PalmerC Primary Care Provider [phone] Ishmael Austin MD Unavailable Carmela Palmer PA-C Unavailable [phone] Romie Smith PhD Unavailable [phone] Valdemar Thompson MD Unavailable Kera Gonzalez PA-C Unavailable [phone] Kera Gonzalez PA-C Unavailable [phone] Encounter Details Date Type Department Care Team (Late st Contact Info) Description 08/02/2023 MyC Medical Advice [facility] [address] [place] [address] Rossi Gaines GC Genetic Counseling Graduate Program Office [address] [place] [address] [phone] [place] [address] Social History Tobacco Use Types [...] on file Legal Sex Female 4:09 AM HEALTH SCIENCES PROGRAM COORDINATOR Gender Identity Not on file Sexual Orientation Not on file documented as of this encounter Plan of Treatment Not on file documented as of this encounter Visit Diagnoses Not on filedocumented in this encounter Care Teams Ropewalk Rope Maker Relationship Specialty Start Date End Date Leeanne Pickard APRN MANAGER TESTING PCP - General Family Medicine 07/27/22 11/09/23 Carmela Palmer PA-C [address] [place] [phone] PCP - General Family Medicine 12/13/23 Yogesh Lynch [address] [place] [address] 880206 Referring Physician Medical Oncology 07/22/21 Yogesh Peraza MD [facility] [place], [place] 952256 BMT Physician Transplant 08/25/21 Tracy Covarrubias, [facility] Lay Out Former BMT - Adult 08/30/21 06/15/24 Yogesh Peraza MD [address] [place], [place] 360006 Assigned Cancer Care Provider 10/24/21 Leeanne Pickard APRN MANAGER TESTING Assigned PCP 12/10/21 10/04/23 Anyi Ha MD [address] [place] [address] Assigned OBGYN Provider 03/19/22 Valdemar Thompson MD [address] [facility] [address] [place] [address] Cardiovascular Disease 07/27/22 Jenni Camacho APRN MANAGER TESTING [address] [place] [address] Nurse Practitioner Hematology & Oncology 09/16/22 Mario Tsang RN BMT Nurse Coordinator Transplant 06/07/23 11/19/23 Isaac Hennessy PA-C 6405 [place], [place] 837035 Assigned Heart and Vascular Provider 05/20/23 07/02/24 [place] [address] [place] [address] Hematology 06/21/23 Yogesh Peraza MD [address] [place] [address] 064566 Hematology 06/21/23 Wendy Francis MD [address] [place] [address] 013015 Physical Medicine and Rehabilitation 08/28/[address] [address] Assigned PCP 10/05/23 01/01/24 Noemi Calle, DEANGELO BMT Nurse Coordinator Transplant 11/20/23 Wendy Francis MD [address] [place] [address] Assigned Neuroscience Provider 11/24/23 Ishmael Austin MD [address] [place], [place] 920835 Dermatology 12/15/23 Carmela Palmer PA-C [address] [place] [address]66383 Assigned PCP 01/02/24 Romie Smith, PhD 909 [place] [address]48[address] Assigned Behavioral Health Provider 06/03/24 Valdemar Thompson MD [address] [facility] [address] [place] [address] Assigned Heart and Vascular Provider 07/03/24 Kera Gonzalez PA-C [facility] [address] [place] [address] Physician Cooky Machine Operator Dermatology 11/08/24 Kera Gonzalez PA-C [facility] [address] [place] [address] Assigned Dermatology Provider 01/31/25 documented as of this encounter
--- OUTSIDE RECORDS SUMMARY | 2025-04-06 21:31 | XMS_ITS | Clinical Summary ---
Author Organization [employer] [facility] Address [address] [place] [address] Care Team Providers Care Associate Dentist Name Role Phone Leeanne Pickard ENGLISH LANGUAGE ARTS TEACHER Primary Care Provider [phone] Chan Bedolla MD Unavailable [phone] Allergies Active Allergy Reactions Criticality Noted Date Comments Codeine GI Upset 10/08/2015 Meperidine 11/15/2006 Nsaids (Non-Steroidal Anti-Inflammatory Drug) Other - Describe In Comment Field 03/30/2016 Patient had bariatric surgery. Should not ever take NSAIDS due to high risk for gastric ulcers. Hydroxyzine Other - Describe In Comment Field 10/08/2015 Patient was given this med during or after surgery with Demerol and is unsure which on she had a reaction to. La Nena Valdez LPN 10/08/2015 4:24 PM Caused arm swelling & rash Medications fexofenadine (HAO) 180 mg tablet Take 1 tablet by mouth. One tab PO Q HS X 2 month supply 60 tablet 3 0 Active FLUoxetine (PROZAC) 20 mg capsule Take 40 mg by mouth every morning. 0 6 Active Pediatric Multivitamins-Iro n (FLINTSTONES COMPLETE, IRON,) chewable tablet Take 1 tablet by mouth once daily. 0 6 Active docusate (COLACE) 100 mg capsuleIndication s:S/P laparoscopic sleeve gastrectomy Take 1 capsule by mouth 2 times daily if needed for Constipation . 30 capsule 03/30/2016 11:46 AM CDT 6 Active omeprazole (PRILOSEC) 20 mg Delayed-Release capsuleIndication s:S/P laparoscopic sleeve gastrectomy Take 1 capsule by mouth once daily before a meal. 30 capsule 03/30/2016 11:46 AM CDT 6 Active medication order composer Calcium 1200 mg daily 0 6 Active Cholecalciferol, Vitamin D3, (VITAMIN D-3) 5,000 unit tab Take 1 tablet by mouth once daily. 0 6 Active cyanocobalamin (VITAMIN B-12) 1,000 mcg sublIndications:V itamin B [address] 1 tablet under the tongue once daily. 30 tablet 0 6 Active traZODone (DESYREL) 50 mg tabletIndications :Insomnia, idiopathic Take 1 tablet by mouth at bedtime. 90 tablet 3 6 Active FLUoxetine (SARAFEM) 20 mg tabletIndications :AXEL (generalized anxiety disorder) Take 1 tablet by mouth every morning. 90 tablet 1 6 Active acyclovir (ZOVIRAX) 400 mg tablet Take 400 mg by mouth two times daily. Active rx amoxicillin (AMOXIL) 500 mg capsule (ED DC MED) Take 500 mg by mouth three times daily. Active aspirin chewable 81 mg chewable tablet Chew 81 mg by mouth once daily. Active eltrombopag (Promacta) 50 mg tablet Take 50 mg by mouth once daily. Active hydrocortisone (Cortef) 20 mg tablet Take 20 mg by mouth once daily. Active hydrocortisone (Cortef) 20 mg tablet Take 20 mg by mouth once daily. Active prasugreL (EFFIENT) 10 mg tab tablet Take 10 mg by mouth once daily. 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 Bedolla Depression, major 02/03/2009 Immunizations Immunization Administration Dates Next Due Hepatitis A (Adult) 03/26/2013,09/18/2012 Influenza, IIV4 06/08/2016 Td (Age >=7 Years) 10/04/2002 Tdap 01/22/2008 Family History Medical History Relation Name Comments Heart Disease Father ME age 68 Hypertension Father Other Father bladder ca Stroke Father age 68; smoker Stroke Mother age 69; smoker Relation Name Status Comments Father Mother Social History Tobacco Use Types Packs/Day Years Used Date Smoking Tobacco: Former Cigarettes Q uit: 09/11/2004 Smokeless Tobacco: Never Alcohol Use Standard Drinks/Week Comments Yes 0 (1 standard drink = 0.6 oz pur e alcohol) occas Comments No Sex and Gender Information Value Date Recorded Sex Assigned at Not on file Legal Sex Female 6:37 AM BUTADIENE CONVERTOR OPERATOR Gender Identity Not on file Sexual Orientation Not on file 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 Not on file Not on file Not on file Not on file Not on file Not on file Obstetrics History Para Term AB IAB SAB Ectopic Multiple Livin g Live Births 4 4 2 2 0 2 4 Date Outcome GA Total Labor Labor/2nd/3rd Weight Sex Type Anes PTL Veronika A1 A5 Name Clin Term Term Last Filed Vital Signs Vital Sign Reading Time Taken Comments Blood Pressure 120/64 07/28/2022 1:00 PM BUTADIENE CONVERTOR OPERATOR Pulse 80 07/28/2022 1:00 PM BUTADIENE CONVERTOR OPERATOR Temperature 36.8 C (98.2 F) 03/30/2016 8:13 AM CDT Respiratory Rate 18 07/28/2022 1:00 PM BUTADIENE CONVERTOR OPERATOR Oxygen Saturation 97% 07/28/2022 1:00 PM BUTADIENE CONVERTOR OPERATOR Inhaled Oxygen Concentration - - Weight 61 kg (134 lb 6.4 oz) 07/28/2022 1:00 PM BUTADIENE CONVERTOR OPERATOR Height 167.6 cm (5' 6) 07/28/2022 1:00 PM BUTADIENE CONVERTOR OPERATOR Body Mass Index 21.69 07/28/2022 1:00 PM BUTADIENE CONVERTOR OPERATOR Plan of Treatment Health Maintenance Due Date Last Done Comments HIV for age 15-65 1984 Hepatitis C screening for ag e 18-79 12/15/1987 Hepatitis B series for 19+ ( 1 of 3 - 19+ 3-dose series) 1988 Colonoscopy through age 75 2014 Mammogram for age 45-75 04/05/2017 04/05/2016 Pap test for age 21-65 04/15/2017 4, 04/15/2014, 05/13/2011, Additional history exists BMI (ht and wt on same day) for age 18+ 06/08/2017 06/08/2016, 03/25/2016, 03/17/2016, Additional history exists Tetanus booster 01/21/2018 01/22/2008, 10/04/2002 Pneumococcal series for age 50+ (1 of 1 - PCV) 12/15/2019 Zoster (shingles) series for age 50+ (1 of 2) 12/15/2019 Lipids for age 45-75 06/08/2021 06/08/2016, 10/11/2002, 10/11/2002 Depression screening for age 12+ 10/14/2023 10/14/2022, 08/01/2022, 07/28/2022, Additional history exists COVID-19 vaccine series ( season) 2024 08/28/2023, 09/16/2020, 08/26/2020 Influenza Vaccine (#1) 2025 06/08/2016 Procedures Procedure Name Priority Date/Time Associated Diagnosis Comments LIPID PANEL W REFLEX MEASURED LDL Routine 06/08/2016 12:30 PM CDT Lipid screening SCAN-MAMMOGRAPHY REPORT 04/05/2016 12:00 AM CDT HPV HIGH RISK Timed 04/15/2014 12:30 PM CDT from Last 3 Months or Most Recently Relevant to Health Maintenance Results * LIPID PANEL W REFLEX MEASURED LDL (06/08/2016 12:30 PM CDT) CHOLESTEROL,TOTAL 184 100 - 199 mg/dL 06/08/2016 5:43 PM CDT [facility] TRIGLYCERIDES 85 <150 mg/dL 06/08/2016 5:43 PM CDT [facility] HDL CHOLESTEROL 42 >40 mg/dL 06/08/2016 5:43 PM CDT [facility] NON-HDL CHOLESTEROL 142 <145 mg/dl 06/08/2016 5:43 PM CDT [facility] CHOL/HDL RATIO 4.38 <4.50 06/08/2016 5:43 PM CDT [facility] LDL CHOLESTEROL 125 <=130 mg/dL 06/08/2016 5:43 PM CDT [facility] PATIENT STATUS FASTING 06/08/2016 5:43 PM CDT [facility] Blood BLOOD SPECIMEN / Unknown Venipuncture / Unknown 06/08/2016 12:30 PM CDT 06/08/2016 12:30 PM CDT us Leeanne Pickard NP CHEMISTRY Final Result [facility] [address] [place] [address], [place] * SCAN-MAMMOGRAPHY REPORT (04/05/2016 12:00 AM CDT) Anatomical Region Laterality Modality Other us Scanner OTHER Final Result * HPV THIN PREP (04/15/2014 12:30 PM CDT) SPECIMEN/SOURC E Thin prep [facility] HPV RESULTS High Risk HPV Negative. HPV types 16,18,31, 33,35,39, 45,51,52, 56,58,59, 66 and 68 DNA were undetecta ble or below the pre-set threshold . Methodolo gy: Janelle Radhames 4800 HPV Test [facility] 04/15/2014 12:3 0 PM CDT 04/16/2014 12:30 PM CDT us Anyi Ha MD MICROBIOLOGY Final Result [facility] INTERNAL ZIP [address] [place] [address] from Last 3 Months or Most Recently Relevant to Health Maintenance Advance Directives * Full Code (Latest Code Status on File) Date Activated Date Inactivated Comments 03/28/2016 5:11 PM 03/30/2016 3:18 PM * Full Code Date Activated Date Inactivated Comments 03/28/2016 12:14 PM 03/28/2016 5:11 PM Care Teams Associate Dentist Relationship Specialty Start Date End Date Leeanne Pickard NP PCP - General Nurse Practitioner 10/08/15 [facility] [address] [facility] [place] [address] Consulting Physician Surgery - General 06/08/16
--- OUTSIDE RECORDS SUMMARY | 2025-04-06 21:31 | XMS_ITS | Encounter Summary ---
Author Organization [place] Address [facility] [place] [address] Care Team Providers Care Net Mender Name Role Phone DiliayayoYogesh Unavailable Yogesh Peraza MD Unavailable [phone] Tracy Covarrubias [facility] Unavailable Yogesh Peraza MD Unavailable [phone] Ref-Primary, Physician Primary Care Provider Leeanne Pickard APRN BID CLERK Unavailable Anyi Ha MD Unavailable [phone] Leeanne Pickard PLASTIC CUTTER BID CLERK Primary Care Provider + Valdemar Thompson MD Unavailable Valdemar Thompson MD Unavailable Galo Yun RN Unavailable [phone] Jenni Camacho PLASTIC CUTTER BID CLERK Unavailable Jenni Camacho PLASTIC CUTTER BID CLERK Unavailable Mario Tsang RN Unavailable Unavailable Isaac Hennessy PA-C Unavailable [phone] Yogesh Peraza MD Unavailable [phone] Yogesh Peraza MD Unavailable [phone] Wendy Francis MD Unavailable [phone] [facility] Unavail able Noemi Calle RN Unavailable Unavailable Wendy Francis MD Unavailable [phone] Carmela Palmer PA-C Primary Care Provider Ishmael Austin MD Unavailable Carmela Palmer PA-C Unavailable [phone] Romie Smith PhD Unavailable [phone] Valdemar Thompson MD Unavailable Kera Gonzalez PA-C Unavailable [phone] Kera Gonzalez PA-C Unavailable [phone] Encounter Details Date Type Department Care Team (Late st Contact Info) Description 01/24/2022 [facility] Blood and Marrow Transplant Program [address] [address] [facility] Social History Tobacco Use Types Packs/Day Years Used Date Smoking Tobacco: Former Cigarettes Q uit: 2004 Smokeless Tobacco: Never Alcohol Use Standard Drinks/Week Comments Not Currently 0 (1 standard drink = 0.6 oz pur e alcohol) PHQ-2 Answer Date Recorded PHQ-2 Score 2 01/07/2022 Comments No Sex and Gender Information Value Date Recorded Sex Assigned at Not on file Legal Sex Female 4:09 AM HOTEL OR MOTEL CLEANING SUPERVISOR Gender Identity Not on file Sexual Orientation Not on file COVID-19 Exposure Response Date Recorded In the last 10 days, have yo u been in contact with someone who was confirmed or suspected to have Coronavirus/COVID-19? No / Unsure 01/24/2022 9:51 AM CDT documented as of this encounter Plan of Treatment Not on file documented as of this encounter Visit Diagnoses Not on filedocumented in this encounter Additional Health Concerns Infection Onset Date Last Indicated Resolved Time Rule Out COVID-19 03/07/2022 03/07/2022 03/07/2022 8:27 PM CDT Rule Out COVID-19 06/16/2022 06/16/2022 06/16/2022 1:15 PM CDT Rule Out COVID-19 09/30/2022 09/30/2022 09/30/2022 10:10 PM HOTEL OR MOTEL CLEANING SUPERVISOR Rule Out Pertussis 01/15/2023 01/17/2023 8:11 AM CDT Rule Out COVID-19 01/17/2023 01/17/2023 02/07/2023 11:39 PM CDT documented as of this encounter Care Teams Net Mender Relationship Specialty Start Date End Date No Ref-Primary, Physician PCP - General 12/17/21 07/26/22 Leeanne Pickard APRN BID CLERK PCP - General Family Medicine 07/27/22 11/09/23 Carmela Palmer PA-C [address] [place] [phone] PCP - General Family Medicine 12/13/23 Yogesh Lynch [address] [place], [place] [address]78[address] Referring Physician Medical Oncology 07/22/21 Yogesh Peraza MD [address] [place], [place] 3875[address] BMT Physician Transplant 08/25/21 Tracy Covarrubias, [facility] Product Safety Technical Assistant BMT - Adult 08/30/21 06/15/24 Yogesh Peraza MD [address] [place] [address] Assigned Cancer Care Provider 10/24/21 Leeanne Pickard APRN BID CLERK Assigned PCP 12/10/21 10/04/23 Anyi Ha MD [address] [place] [address] Assigned OBGYN Provider 03/19/22 Valdemar Thompson MD [address] [id number] [place] [address] Cardiovascular Disease 07/27/22 Valdemar Thompson MD [address] [facility] [address] [place], [place] [address] Assigned Heart and Vascular Provider 08/06/22 05/19/23 Galo Yun RN Specialty Search Engineer BMT - Adult 09/16/22 06/06/23 Jenni Camacho APRN BID CLERK [address] 1364[address] Nurse Practitioner Hematology & Oncology 09/16/22 Jenni Camacho APRN BID CLERK [address] [address] Nurse Practitioner Hematology & Oncology 09/16/22 [facility] Nurse Coordinator Transplant 06/07/23 11/19/23 Isaac Hennessy, PA-C [address] [place], [place] [address] Assigned Heart and Vascular Provider 05/20/23 07/02/24 Yogesh Peraza MD [address] [place], [place] [address] Hematology 06/21/23 Yogesh Peraza MD [address] [place] [address] Hematology 06/21/23 Wendy Francis MD [address] [place] [address] Physical Medicine and Rehabilitation 08/28/23 [facility] [address] [place], [place] [phone] Assigned PCP 10/05/23 01/01/24 Noemi Calle, RN BMT Nurse Coordinator Transplant 11/20/23 Wendy Francis MD [address] [place] [address] [id number] Assigned Neuroscience Provider 11/24/23 Ishmael Austin MD [address] [place] [address] 323175 Dermatology 12/15/23 Carmela Palmer, PA-C [id number] [place] [phone] Assigned PCP 01/02/24 Romie Smith, PhD [address] [place] [phone] Assigned Behavioral Health Provider 06/03/24 Valdemar Thompson MD [address] [facility] [address] [place] [address] Assigned Heart and Vascular Provider 07/03/24 Kera Gonzalez PA-C Dermatology [address] [place] [address] Physician Marble [employer]ber Dermatology 11/08/24 Kera Gonzalez PA-C Dermatology [address] [place] [address] Assigned Dermatology Provider 01/31/25 documented as of this encounter
--- OUTSIDE RECORDS SUMMARY | 2025-04-06 21:31 | XMS_ITS | Encounter Summary ---
Author Organization [place] Address [facility] [place] [address] Care Team Providers Care Alcoholic Counselor Name Role Phone Nahum Naylor PA-C Primary Care Provider [phone] Yogesh Lynch Unavailable Yogesh Peraza MD Unavailable [phone] Tracy Covarrubias [facility] Unavailable Yogesh Peraza MD Unavailable [phone] Ref-Primary, Physician Primary Care Provider Leeanne Pickard APRN AGRICULTURE RESEARCH DIRECTOR Unavailable Anyi Ha MD Unavailable [phone] Leeanne Pickard APRN AGRICULTURE RESEARCH DIRECTOR Primary Care Provider + Valdemar Thompson MD Unavailable Valdemar Thompson MD Unavailable Galo Yun RN Unavailable [phone] Jenni Camacho FORM SETTER STEEL PAN FORMS AGRICULTURE RESEARCH DIRECTOR Unavailable Jenni Camacho FORM SETTER STEEL PAN FORMS AGRICULTURE RESEARCH DIRECTOR Unavailable Mario Tsang RN Unavailable Unavailable Isaac Hennessy PA-C Unavailable [phone] Yogesh Peraza MD Unavailable [phone] Yogesh Peraza MD Unavailable [phone] Wendy Francis MD Unavailable [phone] [facility] Unavail able Noemi Calle RN Unavailable Unavailable Wendy Francis MD Unavailable [phone] Carmela Palmer PA-C Primary Care Provider [phone] Ishmael Austin MD Unavailable Carmela Palmer PA-C Unavailable [phone] Romie Smith PhD Unavailable [phone] Valdemar Thompson MD Unavailable Kera Gonzalez PA-C Unavailable [phone] Kera Gonzalez PA-C Unavailable [phone] Encounter Details Date Type Department Care Team (Late st Contact Info) Description 08/20/2021 [facility] [place] [address] Daron Correa Fernando 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) Personal history of diseases of blood and blood-forming organs documented in this encounter Results * BMT Workup Irradiated Blood Required (08/20/2021 3:05 PM ELECTRIC HOIST OPERATOR) BMT Workup Irradiated Blood Required Irradiation noted 08/20/2021 3:05 PM ELECTRIC HOIST OPERATOR UR BLOOD BANK SPECIMEN EXPIRATION DATE [id number] 08/20/2021 3:05 PM ELECTRIC HOIST OPERATOR UR BLOOD BANK Blood Venipuncture-No Charge / Unknown 08/20/2021 3:05 PM ELECTRIC HOIST OPERATOR 08/20/2021 3:06 PM ELECTRIC HOIST OPERATOR us Yogesh Peraza MD LAB - LAB COMMUNICATION Final Result UR BLOOD BANK [facility] [address] [facility], [address] [place] [address] [phone] documented in this encounter Visit Diagnoses Diagnosis 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) Personal history of diseases of blood and blood-forming organs documented in this encounter Additional Health Concerns Infection Onset Date Last Indicated Resolved Time Rule Out C-difficile 09/08/2021 09/08/2021 021 11:21 PM ELECTRIC HOIST OPERATOR Rule Out C-difficile 09/17/2021 09/17/2021 022 11:45 PM ELECTRIC HOIST OPERATOR Rule Out C-difficile 09/29/2021 09/29/2021 022 1:50 PM ELECTRIC HOIST OPERATOR Rule Out C-difficile 01/10/2022 01/10/2022 022 8:47 PM CDT Rule Out COVID-19 03/07/2022 03/07/2022 03/07/2022 8:27 PM CDT Rule Out COVID-19 06/16/2022 06/16/2022 06/16/2022 1:15 PM CDT Rule Out COVID-19 09/30/2022 09/30/2022 09/30/2022 10:10 PM ELECTRIC HOIST OPERATOR Rule Out Pertussis 01/15/2023 01/17/2023 8:11 AM CDT Rule Out COVID-19 01/17/2023 01/17/2023 02/07/2023 11:39 PM CDT documented as of this encounter Care Teams Alcoholic Counselor Relationship Specialty Start Date End Date Nahum Naylor PA-C [facility] [address] [place] [address] PCP - General Internal Medicine 07/22/21 12/16/21 No Ref-Primary, Physician PCP - General 12/17/21 07/26/22 Leeanne Pickard APRN AGRICULTURE RESEARCH DIRECTOR PCP - General Family Medicine 07/27/22 11/09/23 Carmela Palmer PA-C [address] [place] [phone] PCP - General Family Medicine 12/13/23 Yogesh Lynch [address] [place] [address] Referring Physician Medical Oncology 07/22/21 Yogesh Peraza MD [address] [place] [address] BMT Physician Transplant 08/25/21 [facility] University Relations Director BMT - Adult 08/30/21 06/15/24 Yogesh Peraza MD [address] [place] [address] Assigned Cancer Care Provider 10/24/21 Leeanne Pickard APRN AGRICULTURE RESEARCH DIRECTOR Assigned PCP 12/10/21 10/04/23 Anyi Ha MD [address] [place] [address] Assigned OBGYN Provider 03/19/22 Valdemar Thompson MD [address] [facility] [address] [place] [address] Cardiovascular Disease 07/27/22 Valdemar Thompson MD [address] [facility] [address] [place], [place] [address] Assigned Heart and Vascular Provider 08/06/22 05/19/23 Galo Yun RN Specialty Contract Preparer BMT - Adult 09/16/22 06/06/23 Jenni Camacho APRN AGRICULTURE RESEARCH DIRECTOR [address] [address] Nurse Practitioner Hematology & Oncology 09/16/22 Jenni Camacho APRN AGRICULTURE RESEARCH DIRECTOR [address] [place] [address] Nurse Practitioner Hematology & Oncology 09/16/22 Mario Tsang RN BMT Nurse Coordinator Transplant 06/07/23 11/19/23 Isaac Hennessy, PALavelleC [address] [place] [address] Assigned Heart and Vascular Provider 05/20/23 07/02/24 Yogesh Peraza MD [address] [place] [address] Hematology 06/21/23 Yogesh Peraza MD [address] [place] [address] Hematology 06/21/23 Wendy Francis MD [address] [place] [address] Physical Medicine and Rehabilitation 08/28/23 [facility] [address] [place] [address] Assigned PCP 10/05/23 01/01/24 Noemi Calle, DEANGELO BMT Nurse Coordinator Transplant 11/20/23 Wendy Francis MD [address] [place] [address] 745505 Assigned Neuroscience Provider 11/24/23 Ishmael Austin MD [address] [place] [address] [phone] Dermatology 12/15/23 Carmela Palmer PA-C [address] [place] [phone] Assigned PCP 01/02/24 Romie Smith, PhD [address] [place] [phone] Assigned Behavioral Health Provider 06/03/24 Valdemar Thompson MD [address] [facility] [address] [place] [address] Assigned Heart and Vascular Provider 07/03/24 Kera Gonzalez PA-C Dermatology [address] [place] [address] Physician Soccer Coach Dermatology 11/08/24 Kera Gonzalez PA-C Dermatology [address] [place] [address] Assigned Dermatology Provider 01/31/25 documented as of this encounter
--- OUTSIDE RECORDS SUMMARY | 2025-04-06 21:31 | XMS_ITS | Encounter Summary ---
Author Organization [place] Address [facility] [place] [address] Care Team Providers Care Screen Printing Press Operator Name Role Phone DiliayayoYogesh Unavailable Yogesh Peraza MD Unavailable [phone] Tracy Covarrubias [facility] Unavailable Yogesh Peraza MD Unavailable [phone] Ref-Primary, Physician Primary Care Provider Leeanne Pickard APRN PROCESS HELPER Unavailable Anyi Ha MD Unavailable [phone] Leeanne Pickard INSIDE SALES COORDINATOR PROCESS HELPER Primary Care Provider + Valdemar Thompson MD Unavailable Valdemar Thompson MD Unavailable Galo Yun RN Unavailable [phone] Jenni Camacho INSIDE SALES COORDINATOR PROCESS HELPER Unavailable Jenni Camacho INSIDE SALES COORDINATOR PROCESS HELPER Unavailable Mario Tsang RN Unavailable Unavailable Isaac Hennessy PA-C Unavailable [phone] Yogesh Peraza MD Unavailable +[phone] Yogesh Peraza MD Unavailable +[phone] Wendy Francis MD Unavailable [phone] Located Within [facility] Unavail able Noemi Calle RN Unavailable Unavailable Wendy Francis MD Unavailable [phone] Carmela Palmer PA-C Primary Care Provider [phone] Ishmael Austin MD Unavailable Carmela Palmer PA-C Unavailable [phone] Romie Smith PhD Unavailable [phone] Valdemar Thompson MD Unavailable Kera Gonzalez PA-C Unavailable [phone] Kera Gonzalez PA-C Unavailable [phone] Encounter Details Date Type Department Care Team (Late st Contact Info) Description 03/29/2022 [facility] [address] [place] [address] [facility] Social History Tobacco Use Types Packs/Day Years [...] on file Legal Sex Female 4:09 AM SUPERVISOR BOILER REPAIR Gender Identity Not on file Sexual Orientation Not on file COVID-19 Exposure Response Date Recorded In the last 10 days, have yo u been in contact with someone who was confirmed or suspected to have Coronavirus/COVID-19? No / Unsure 03/29/2022 8:16 AM CDT documented as of this encounter Plan of Treatment Not on file documented as of this encounter Visit Diagnoses Not on filedocumented in this encounter Additional Health Concerns Infection Onset Date Last Indicated Resolved Time Rule Out COVID-19 06/16/2022 06/16/2022 06/16/2022 1:15 PM CDT Rule Out COVID-19 09/30/2022 09/30/2022 09/30/2022 10:10 PM SUPERVISOR BOILER REPAIR Rule Out Pertussis 01/15/2023 01/17/2023 8:11 AM CDT Rule Out COVID-19 01/17/2023 01/17/2023 02/07/2023 11:39 PM CDT documented as of this encounter Care Teams Screen Printing Press Operator Relationship Specialty Start Date End Date No Ref-Primary, Physician PCP - General 12/17/21 07/26/22 Leeanne Pickard APRN PROCESS HELPER PCP - General Family Medicine 07/27/22 11/09/23 Carmela Palmer PA-C [address] [place] [phone] PCP - General Family Medicine 12/13/23 Yogesh Lynch [address] [place] [address] Referring Physician Medical Oncology 07/22/21 Yogesh Peraza MD [address] [place] [address] 26217 BMT Physician Transplant 08/25/21 [facility] Semiconductor Development Technician BMT - Adult 08/30/21 06/15/24 Yogesh Peraza MD [facility] [place], [place] 206876 Assigned Cancer Care Provider 10/24/21 Leeanne Pickard APRN PROCESS HELPER Assigned PCP 12/10/21 10/04/23 Anyi Ha MD [address] [place] [address] Assigned OBGYN Provider 03/19/22 Valdemar Thompson MD [address] [facility] [address] [place], [place] 570725 Cardiovascular Disease 07/27/22 Valdemar Thompson MD [address] [facility] [address] [place], [place] [address]255 Assigned Heart and Vascular Provider 08/06/22 05/19/23 Galo Yun RN Specialty Honing Machine Try Out Setter BMT - Adult 09/16/22 06/06/23 Jenni Camacho APRN PROCESS HELPER [address] [address] Nurse Practitioner Hematology & Oncology 09/16/22 Jenni Camacho APRN PROCESS HELPER [address] [address] Nurse Practitioner Hematology & Oncology 09/16/22 [facility] andrade RN BMT Nurse Coordinator Transplant 06/07/23 11/19/23 Isaac Hennessy, PALavelleC [address] [place] [address] Assigned Heart and Vascular Provider 05/20/23 07/02/24 Yogesh Peraza MD [address] [place] [address] Hematology 06/21/23 Yogesh Peraza MD [address] [place], [place] 652536 [facility] 06/21/23 Wendy Francis MD [address] [place] [address] Physical Medicine and Rehabilitation 08/28/23 Located Within [facility] [address] [place] [address] Assigned PCP 10/05/23 01/01/24 Noemi Calle, DEANGELO BMT Nurse Coordinator Transplant 11/20/23 Wendy Francis MD [address] [place] [address] 927425 Assigned Neuroscience Provider 11/24/23 Ishmael Austin MD [address] [place] [address] 824915 [facility] 12/15/23 Carmela Palmer PA-C [address] [place] [address] Assigned PCP 01/02/24 Romie Smith, PhD [address] [place] [phone] Assigned Behavioral Health Provider 06/03/24 Valdemar Thompson MD [address] [facility] [address] [place], [place] 10[address]75 Assigned Heart and Vascular Provider 07/03/24 Kera Gonzalez PA-C Dermatology [address] [place] [address] Physician Shaker Operator Dermatology 11/08/24 Kera Gonzalez PA-C Dermatology [address] [place] [address] Assigned Dermatology Provider 01/31/25 documented as of this encounter
--- OUTSIDE RECORDS SUMMARY | 2025-04-06 21:31 | XMS_ITS | Encounter Summary ---
Author Organization [place] Address [facility] [place] [address] Care Team Providers Care Material Cutter Name Role Phone DiliayayoYogesh Unavailable Yogesh Peraza MD Unavailable [phone] [facility] Unavailable Yogesh Peraza MD Unavailable [phone] Ref-Primary, Physician Primary Care Provider Leeanne Pickard APRN HEAD TENNIS PROFESSIONAL Unavailable Anyi Ha MD Unavailable [phone] Leeanne Pickard UTILITIES AND MAINTENANCE SUPERVISOR HEAD TENNIS PROFESSIONAL Primary Care Provider + Valdemar Thompson MD Unavailable Valdemar Thompson MD Unavailable Galo Yun RN Unavailable [phone] Jenni Camacho UTILITIES AND MAINTENANCE SUPERVISOR HEAD TENNIS PROFESSIONAL Unavailable Jenni Camacho UTILITIES AND MAINTENANCE SUPERVISOR HEAD TENNIS PROFESSIONAL Unavailable Mario Tsang RN Unavailable Unavailable Isaac Hennessy PA-C Unavailable [phone] Yogesh Peraza MD Unavailable +[phone] Yogesh Peraza MD Unavailable +[phone] Wendy Francis MD Unavailable [phone] [facility] Unavail able Noemi Calle RN Unavailable Unavailable Wendy Francis MD Unavailable [phone] Carmela Palmer PA-C Primary Care Provider [phone] Ishmael Austin MD Unavailable Carmela Palmer PA-C Unavailable [phone] Romie Smith PhD Unavailable [phone] Valdemar Thompson MD Unavailable Kera Gonzalez PA-C Unavailable [phone] Kera Gonzalez PA-C Unavailable [phone] Encounter Details Date Type Department Care Team (Late st Contact Info) Description 06/27/2022 MyC Medical Advice [facility] Blood and Marrow Transplant Program [address] [address] Galo Yun, RN Social History Tobacco Use Types Packs/Day [...] on file Legal Sex Female 4:09 AM CONTRACTS SPECIALIST Gender Identity Not on file Sexual Orientation Not on file COVID-19 Exposure Response Date Recorded In the last 10 days, have yo u been in contact with someone who was confirmed or suspected to have Coronavirus/COVID-19? No / Unsure 06/16/2022 7:16 AM CDT documented as of this encounter Plan of Treatment Not on file documented as of this encounter Visit Diagnoses Not on filedocumented in this encounter Additional Health Concerns Infection Onset Date Last Indicated Resolved Time Rule Out COVID-19 09/30/2022 09/30/2022 09/30/2022 10:10 PM CONTRACTS SPECIALIST Rule Out Pertussis 01/15/2023 01/17/2023 8:11 AM CDT Rule Out COVID-19 01/17/2023 01/17/2023 02/07/2023 11:39 PM CDT documented as of this encounter Care Teams Material Cutter Relationship Specialty Start Date End Date No Ref-Primary, Physician PCP - General 12/17/21 07/26/22 Leeanne Pickard APRN CNP PCP - General Family Medicine 07/27/22 11/09/23 Carmela Palmer PA-C [address] [place] [phone] PCP - General Family Medicine 12/13/23 Yogesh Lynch [facility] [place], [place] 353376 Referring Physician Medical Oncology 07/22/21 Yogesh Peraza MD [address] [place] [address] BMT Physician Transplant 08/25/21 Tracy Covarrubias, [facility] Metal Storage Worker BMT - Adult 08/30/21 06/15/24 Yogesh Peraza MD [address] [place], [place] 905906 Assigned Cancer Care Provider 10/24/21 Leeanne Pickard APRN HEAD TENNIS PROFESSIONAL Assigned PCP 12/10/21 10/04/23 Anyi Ha MD [address] [place] [address] Assigned OBGYN Provider 03/19/22 Valdemar Thompson MD [address] [facility] [address] [place] [address] Cardiovascular Disease 07/27/22 Valdemar Thompson MD [address] [facility] [address] [place] [address] Assigned Heart and Vascular Provider 08/06/22 05/19/23 Galo Yun RN Specialty Family Consumer Science Teacher BMT - Adult 09/16/22 06/06/23 Jenni Camacho APRN HEAD TENNIS PROFESSIONAL [address] [place] [address] Nurse Practitioner Hematology & Oncology 09/16/22 Jenni Camacho APRN HEAD TENNIS PROFESSIONAL [address] [place] [address] Nurse Practitioner Hematology & Oncology 09/16/22 Mario Tsang RN BMT Nurse Coordinator Transplant 06/07/23 11/19/23 Isaac Hennessy PA-C 6405 [place] [address] Assigned Heart and Vascular Provider 05/20/23 07/02/24 Yogesh Peraza MD [address] [place] [address] Hematology 06/21/23 Yogesh Peraza MD [address] [place] [address] Hematology 06/21/23 Wendy Francis MD [address] [place] [address] 077535 Physical Medicine and Rehabilitation 08/28/23 [facility] [address] [place], [place] 4784[address] Assigned PCP 10/05/23 01/01/24 Noemi Calle, DEANGELO BMT Nurse Coordinator Transplant 11/20/23 Wendy Francis MD [address] [place] [address] Assigned Neuroscience Provider 11/24/23 Ishmael Austin MD [address] [place] [address] 133245 Dermatology 12/15/23 Carmela Palmer PA-C [address] [place] [address] Assigned PCP 01/02/24 Romie Smith PhD 909 [place] [address] Assigned Behavioral Health Provider 06/03/24 Valdemar Thompson MD [address] [facility] [address] [place] [address] Assigned Heart and Vascular Provider 07/03/24 Kera Gonzalez PA-C Dermatology [address] [place] [address] Physician Watch Hairspring Assembler Dermatology 11/08/24 Kera Gonzalez PA-C Dermatology [address] [place] [address] Assigned Dermatology Provider 01/31/25 documented as of this encounter
--- OUTSIDE RECORDS SUMMARY | 2025-04-06 21:31 | XMS_ITS | Encounter Summary ---
Author Organization [place] Address [address] [facility] [place] [address] Care Team Providers Care Substance Abuse Specialist Name Role Phone Syed Yogesh Unavailable Yogesh Peraza MD Unavailable [phone] Tracy Covarrubias [facility] Unavailable Yogesh Peraza MD Unavailable [phone] Leeanne Pickard APRN PROOFING MACHINE OPERATOR Unavailable Anyi Ha MD Unavailable [phone] Leeanne Pickard APRN PROOFING MACHINE OPERATOR Primary Care Provider + Valdemar Thompson MD Unavailable Jenni Camacho STITCH BONDER MACHINE OPERATOR HELPER PROOFING MACHINE OPERATOR Unavailable Mario Tsang RN Unavailable Unavailable Isaac Hennessy PA-C Unavailable [phone] Yogesh Peraza MD Unavailable [phone] Yogesh Peraza MD Unavailable [phone] Wendy Francis MD Unavailable [phone] [facility] Unavail able Noemi Calle RN Unavailable Unavailable Wendy Francis MD Unavailable [phone] Carmela PalmerC Primary Care Provider [phone] Ishmael Austin MD Unavailable Carmela Palmer PA-C Unavailable [phone] Romie Smith PhD Unavailable [phone] Valdemar Thompson MD Unavailable Kera Gonzalez PA-C Unavailable + [phone] Kera Gonzalez PA-C Unavailable +[phone] Encounter Details Date Type Department Care Team (Late st Contact Info) Description 06/27/[address] 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 Gender Identity Not on file Sexual [...] on filedocumented in this encounter Care Teams Substance Abuse Specialist Relationship Specialty Start Date End Date Leeanne Pickard APRN PROOFING MACHINE OPERATOR PCP - General Family Medicine 07/27/22 11/09/23 Carmela Palmer PA-C [address] [place] [phone] PCP - General Family Medicine 12/13/23 Yogesh Lynch [address] [place], [place] 286786 Referring Physician Medical Oncology 07/22/21 Yogesh Peraza MD [address] [place], [place] 047136 BMT Physician Transplant 08/25/21 Tracy Covarrubias, [facility] Back Seam Stitcher BMT - Adult 08/30/21 06/15/24 Yogesh Peraza MD [address] [place] [address] Assigned Cancer Care Provider 10/24/21 Leeanne Pickard APRN PROOFING MACHINE OPERATOR Assigned PCP 12/10/21 10/04/23 Anyi Ha MD [address] [place] [address] Assigned OBGYN Provider 03/19/22 Valdemar Thompson MD [address] [address] Cardiovascular Disease 07/27/22 Jenni Camacho APRN PROOFING MACHINE OPERATOR [address] [place] [address] Nurse Practitioner Hematology & Oncology 09/16/22 [facility] Nurse Coordinator Transplant 06/07/23 11/19/23 Isaac Hennessy, PALavelleC 6405 [place] [address] Assigned Heart and Vascular Provider 05/20/23 07/02/24 Yogesh Peraza MD [address] [place] [address] Hematology 06/21/23 Yogesh Peraza MD [address] [place] [address] Hematology 06/21/23 Wendy Francis MD [address] [place] [address] Physical Medicine and Rehabilitation 08/28/[address] [address] Assigned PCP 10/05/23 01/01/24 Noemi Calle, DEANGELO BMT Nurse Coordinator Transplant 11/20/23 Wendy Francis MD [address] [place] [address] Assigned Neuroscience Provider 11/24/23 Ishmael Austin MD [address]09 [place] [address] Dermatology 12/15/23 Carmela Palmer PA-C [address] [place] [address] Assigned PCP 01/02/24 Romie Smith, PhD [address] [place] [phone] Assigned Behavioral Health Provider 06/03/24 Valdemar Thompson MD [address] [address] Assigned Heart and Vascular Provider 07/03/24 Kera Gonzalez PA-C Dermatology [address] [place] [address] Physician Product Lead Dermatology 11/08/24 Kera Gonzalez PA-C Dermatology [address] [place] [address] Assigned Dermatology Provider 01/31/25 documented as of this encounter
--- OUTSIDE RECORDS SUMMARY | 2025-04-06 21:31 | XMS_ITS | Encounter Summary ---
Author Organization [place] Address [address] [facility] [place] [address] Care Team Providers Care Clam Shovel Operator Name Role Phone Syed Yogesh Unavailable Yogesh Peraza MD Unavailable [phone] Tracy Covarrubias [facility] Unavailable Yogesh Peraza MD Unavailable [phone] Leeanne Pickard APRN FIRER PORTABLE BOILER Unavailable Anyi Ha MD Unavailable [phone] Leeanne Pickard APRN FIRER PORTABLE BOILER Primary Care Provider + Valdemar Thompson MD Unavailable Jenni Camacho ISOBUTYLENE OPERATOR CHIEF FIRER PORTABLE BOILER Unavailable Mario Tsang RN Unavailable Unavailable Isaac Hennessy PA-C Unavailable [phone] Yogesh Peraza MD Unavailable Yogesh Peraza MD Unavailable [phone] Wendy Francis MD Unavailable [phone] Located Within [facility] Unavail able Noemi Calle RN Unavailable Unavailable Wendy Francis MD Unavailable [phone] Carmela PalmerC Primary Care Provider [phone] Ishmael Austin MD Unavailable Carmela Palemr PA-C Unavailable [phone] Romie Smith PhD Unavailable [phone] Valdemar Thompson MD Unavailable Kera Gonzalez PA-C Unavailable [phone] Kera Gonzalez PA-C Unavailable [phone] Encounter Details Date Type Department Care Team (Late st Contact Info) Description 06/12/2023 MyC Medical Advice [facility] Blood and Marrow Transplant Program [address] [address] Yogesh Peraza MD [address] [place] [address] Social History Tobacco Use Types Packs/Day [...] on file 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 No / Unsure 06/14/2023 10:48 AM CDT documented as of this encounter Plan of Treatment Not on file documented as of this encounter Visit Diagnoses Not on filedocumented in this encounter Care Teams Clam Shovel Operator Relationship Specialty Start Date End Date Leeanne Pickard APRN FIRER PORTABLE BOILER PCP - General Family Medicine 07/27/22 11/09/23 Carmela Palmer PA-C [address] [place] [phone] PCP - General Family Medicine 12/13/23 Yogesh Lynch [address] [place] [address] 328636 Referring Physician Medical Oncology 07/22/21 [place] [address] [place] [address] 817636 BMT Physician Transplant 08/25/21 Tracy Covarrubias, [facility] Journeyman Pipe Welder BMT - Adult 08/30/21 06/15/24 Yogesh Peraza MD [facility] [place], [place] 622526 Assigned Cancer Care Provider 10/24/21 Leeanne Pickard APRN FIRER PORTABLE BOILER Assigned PCP 12/10/21 10/04/23 Anyi Ha MD [address] [place] [address] Assigned OBGYN Provider 03/19/22 Valdemar Thompson MD [address] [address] Cardiovascular Disease 07/27/22 Jenni Camacho APRN FIRER PORTABLE BOILER [address] [place] [address] Nurse Practitioner Hematology & Oncology 09/16/22 [facility] Nurse Coordinator Transplant 06/07/23 11/19/23 Isaac Hennessy, PALavelleC 6405 [place] [address] Assigned Heart and Vascular Provider 05/20/23 07/02/24 Yogesh Peraza MD 3931 [place] [address] Hematology 06/21/23 [place] [address] [place] [address] Hematology 06/21/23 Wendy Francis MD [address] [place] [address] Physical Medicine and Rehabilitation 08/28/23 Located Within [facility] [address] [place] [address] Assigned PCP 10/05/23 01/01/24 Noemi Calle, DEANGELO BMT Nurse Coordinator Transplant 11/20/23 Wendy Francis MD 909 [place] [address] Assigned Neuroscience Provider 11/24/23 Ishmael Austin MD 909 [place] [address] Dermatology 12/15/23 Carmela Palmer PA-C [address] [place] [address] Assigned PCP 01/02/24 Romie Smith, PhD 909 [place] [phone] Assigned Behavioral Health Provider 06/03/24 Valdemar Thompson MD 6405 [facility] [address] [place] [address] Assigned Heart and Vascular Provider 07/03/24 Kera Gonzalez PA-C [facility] [address] [place] [address] Physician Board Handler Dermatology 11/08/24 Kera Gonzalez PA-C [facility] [address] [place] [address] Assigned Dermatology Provider 01/31/25 documented as of this encounter
--- OUTSIDE RECORDS SUMMARY | 2025-04-06 21:31 | XMS_ITS | Encounter Summary ---
Author Organization [place] Address [address] [facility] [place] [address] Care Team Providers Care Coater Associate Name Role Phone Syed Yogesh Unavailable Yogesh Peraza MD Unavailable [phone] Tracy Covarrubias [facility] Unavailable Yogesh Peraza MD Unavailable +[phone] Leeanne Pickard APRN BLACKENER Unavailable Anyi Ha MD Unavailable [phone] Leeanne Pickard APRN BLACKENER Primary Care Provider + Valdemar Thompson MD Unavailable Jenni Camacho SIEBEL CRM DEVELOPER BLACKENER Unavailable Mario Tsang RN Unavailable Unavailable Isaac Hennessy PA-C Unavailable [phone] Yogesh Peraza MD Unavailable [phone] Yogesh Peraza MD Unavailable [phone] Wendy Francis MD Unavailable [phone] [facility] Unavail able Noemi Calle RN Unavailable Unavailable Wendy Francis MD Unavailable [phone] Carmela PalmerC Primary Care Provider [phone] Ishmael Austin MD Unavailable Carmela Palmer PA-C Unavailable [phone] Romie Smith PhD Unavailable [phone] Valdemar Thompson MD Unavailable Kera Gonzalez PA-C Unavailable [phone] Kera Gonzalez PA-C Unavailable [phone] Encounter Details Date Type Department Care Team (Late st Contact Info) Description 06/16/2023 MyC Medical Advice [facility] Blood and Marrow Transplant Program [address] [address] Yogesh Peraza MD [address] [place] [address] Social History Tobacco Use Types Packs/Day [...] on file 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 Gender Identity Not on file Sexual Orientation [...] on filedocumented in this encounter Care Teams Coater Associate Relationship Specialty Start Date End Date Leeanne Pickard APRN BLACKENER PCP - General Family Medicine 07/27/22 11/09/23 Carmela Palmer PA-C [address] [place] [phone] PCP - General Family Medicine 12/13/23 Yogesh Lynch [address] [place] [address] 122376 Referring Physician Medical Oncology 07/22/21 [place] [address] [place] [address] 049486 BMT Physician Transplant 08/25/21 Tracy Covarrubias, [facility] Bronzer BMT - Adult 08/30/21 06/15/24 Yogesh Peraza MD [facility] [place], [place] 658416 Assigned Cancer Care Provider 10/24/21 Leeanne Pickard APRN BLACKENER Assigned PCP 12/10/21 10/04/23 Anyi Ha MD [address] [place] [address] Assigned OBGYN Provider 03/19/22 Valdemar Thompson MD [address] [address] Cardiovascular Disease 07/27/22 Jenni Camacho APRN BLACKENER [address] [place] [address] Nurse Practitioner Hematology & Oncology 09/16/22 [facility] B[facility] Nurse Coordinator Transplant 06/07/23 11/19/23 Isaac Hennessy, PALavelleC 6405 [place] [address] Assigned Heart and Vascular Provider 05/20/23 07/02/24 Yogesh Peraza MD 3931 [place] [address] Hematology 06/21/23 [place] [address] [place] [address] Hematology 06/21/23 Wendy Francis MD [address] [place] [address] Physical Medicine and Rehabilitation 08/28/23 [facility] [address] [place] [address] Assigned PCP 10/05/23 01/01/24 Noemi Calle, DEANGELO BMT Nurse Coordinator Transplant 11/20/23 Wendy Francis MD 909 [place] [address] Assigned Neuroscience Provider 11/24/23 Ishmael Austin MD 909 [place] [address] Dermatology 12/15/23 Carmela Palmer PA-C 287[address] [place] [address] Assigned PCP 01/02/24 Romie Smith, PhD 909 [place] [phone] Assigned Behavioral Health Provider 06/03/24 Valdemar Thompson MD 6405 [facility] [address] [place] [address] Assigned Heart and Vascular Provider 07/03/24 Kera Gonzalez PA-C [facility] [address] [place] [address] Physician Supervisor Assembly Stock Dermatology 11/08/24 Kera Gonzalez PA-C [facility] [address] [place] [address] Assigned Dermatology Provider 01/31/25 documented as of this encounter
--- OUTSIDE RECORDS SUMMARY | 2025-04-06 21:31 | XMS_ITS ---
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 Past Treatment and Therapy Plans Additional Plan Needed Plan Name Start Date Discontinue Date Treatment Medications Discontinue Reason Plan Provider LINE CARE ORDERS (STAFF RADIOLOGIST) 06/23/2021 09/01/2023 alteplase (CATHFLO ACTIVASE)heparin PF (Pork)sodium chloride 0.9 %sodium chloride 0.9% Therapy Complete Yogesh Lynch MD Blood Transfusion Plan Name Start Date Discontinue Date Treatment Medications Discontinue Reason Plan Provider ADULT BLOOD ADMINISTRATION THERAPY PLAN 11/22/2023 ALBUterol sulfate HFAalteplase (CATHFLO ACTIVASE)diphenh ydrAMINE (BENADRYL)EPINEP Hrinefamotidine (PEPCID)heparinh eparin PF (Pork)methylPRED NISolone sodium succinate PF (SOLU-medrol)sod ium chloride 0.9 %sodium chloride 0.9% Other Marci Weaver PA-C Lines/Fluids/Replacement Plan Name Start Date Discontinue Date Treatment Medications Discontinue Reason Plan Provider LINE CARE ORDERS (STAFF RADIOLOGIST) 06/23/2021 06/23/2021 alteplase (CATHFLO ACTIVASE)heparin sodium chloride 0.9 %sodium chloride 0.9% Entered in Error Yogesh Lynch MD ONCOLOGY TREATMENT Plan Name Start Date Discontinue Date Treatment Medications Discontinue Reason Plan Provider Cycles IP HYPER- CVAD/M TX-TUSHAR C - ALL/BU RKITT' S 05/23/20 21 11/22/2023 0.9% sodium chloride PF INTRATHECAL injectionacetaminophen (TYLENOL)ALBUterol sulfate HFAalteplase (CATHFLO ACTIVASE)cycloPHOSphamide (CYTOXAN) infusioncytarabine (aka CYTOSAR) chemo infusiondexAMETHasone (DECADRON)dexAMETHasone (DEXASOL) 0.1 %dexAMETHasone-ondansetron IVPBdiphenhydrAMINE (BENADRYL)DOXOrubicin IV infusionEPINEPHrineEPINEPHrine 1 MG/MLfamotidine (PEPCID)heparinheparin PF (Pork)insulin isophane (NovoLIN NPH,HumuLIN NPH) 100 UNIT/MLleuCOVORin (WELLCOVORIN)leuCOVORin (WELLCOVORIN) infusionLORazepam (ATIVAN)maintenance infusion with additivesmeperidine (DEMEROL)mesna IV infusion (aka MESNEX)methotrexate chemo infusion dose < 1.35g/g0pjderzfgslbo chemo infusion dose = 1.35g/m2-2g/w5wclemrnjdlcd INTRATHECAL chemo injectionmethotrexate-cytarabin e-hydrocortisone INTRATHECAL chemo injectionmethylPREDNISolone sodium succinate (SOLU-Medrol)methylPREDNISolone sodium succinate PF (SOLU-medrol)ondansetron (ZOFRAN)ondansetron (ZOFRAN) IVPBpegfilgrastim-cbqv (UDENYCA)prochlorperazine (COMPAZINE)sodium bicarbonatesodium chloride 0.9%tbo-filgrastim (GRANIX)vinCRIStine IV chemo infusion Other Yogesh Lynch MD 4 of 8 cycles started Lifetime Dose Tracking * Chemical Lifetime Dose Automatic Entry Manual Entr y Doxorubicin 89.56 mg/m2 (163 mg) 89.56 mg/m2 (163 mg) 0 mg/m2 (0 mg) Fluoro Time 0.602 minutes 0.602 minutes 0 minutes Total Air Kerma 5.51 mGy 5.51 mGy 0 mGy Dose Area Product ( Gy-m2) 28.15 Gy-m2 28.15 Gy-m2 0 Gy-m2 Resolved Problems Problem Noted Date Diagnosed Date Resolved Date Thrombocytopenia 05/20/2021 07/02/2021
--- OUTSIDE RECORDS SUMMARY | 2025-04-06 21:31 | XMS_ITS | Encounter Summary ---
Author Organization [place] Address [facility] [place] [address] Care Team Providers Care Chairperson Anesthesiology Name Role Phone Larrymarychuy Yogesh Unavailable Yogesh Peraza MD Unavailable [phone] Tracy Covarrubias [facility] Unavailable Yogesh Peraza MD Unavailable [phone] Leeanne Pickard APRN EXECUTIVE CHEF ASSISTANT Unavailable [phone] Anyi Ha MD Unavailable [phone] Leeanne Pickard APRN EXECUTIVE CHEF ASSISTANT Primary Care Provider + Valdemar Thompson MD Unavailable Valdemar Thompson MD Unavailable Galo Yun RN Unavailable [phone] Jenni Camacho BARK SPUDDER EXECUTIVE CHEF ASSISTANT Unavailable [facility] andrade RN Unavailable Unavailable Isaac Hennessy PA-C Unavailable [phone] Yogesh Peraza MD Unavailable +[phone] Yogesh Peraza MD Unavailable +[phone] Wendy Francis MD Unavailable [phone] [facility] Unavail able Noemi Calle RN Unavailable Unavailable Wendy Francis MD Unavailable Carmela Palmer PA-C Primary Care Provider Ishmael Austin MD Unavailable Carmela Palmer PA-C Unavailable [phone] RoaneRomie perez PhD Unavailable [phone] Valdemar Thompson MD Unavailable Kera Gonzalez PA-C Unavailable [phone] Kera Gonzalez PA-C Unavailable [phone] Encounter Details Date Type Department Care Team (Late st Contact Info) Description 03/09/2023 [facility] [address] [place] [address] Tasneem Bee Social History Tobacco Use [...] on file 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 No / Unsure 03/09/2023 2:46 PM CDT documented as of this encounter Plan of Treatment Not on file documented as of this encounter Visit Diagnoses Not on filedocumented in this encounter Care Teams Chairperson Anesthesiology Relationship Specialty Start Date End Date Leeanne Pickard APRN EXECUTIVE CHEF ASSISTANT PCP - General Family Medicine 07/27/22 11/09/23 Carmela Palmer PA-C [address] [place] [phone] PCP - General Family Medicine 12/13/23 Yogesh Lynch [address] [place], [place] 776206 Referring Physician Medical Oncology 07/22/21 Yogesh Peraza MD [address] [place], [place] 175416 BMT Physician Transplant 08/25/21 Tracy Covarrubias, [facility] Brick Kiln Burner BMT - Adult 08/30/21 06/15/24 Yogesh Peraza MD [facility] [place] [address] Assigned Cancer Care Provider 10/24/21 Leeanne Pickard APRN EXECUTIVE CHEF ASSISTANT Assigned PCP 12/10/21 10/04/23 Anyi Ha MD [address] [place], [place] 630207 Assigned OBGYN Provider 03/19/22 Valdemar Thompson MD [address] [id number] [place], [place] [address] Cardiovascular Disease 07/27/22 Valdemar Thompson MD [address] [facility] [address] [place], [place] [address] Assigned Heart and Vascular Provider 08/06/22 05/19/23 Galo Yun, DEANGELO Specialty Financial Intern BMT - Adult 09/16/22 06/06/23 Jenni Camacho APRN EXECUTIVE CHEF ASSISTANT [address] [place] [address] Nurse Practitioner Hematology & Oncology 09/16/22 [facility] Nurse Coordinator Transplant 06/07/23 11/19/23 Isaac Hennessy, PALavelleC [address] [place], [place] [address]1975 Assigned Heart and Vascular Provider 05/20/23 07/02/24 Yogesh Peraza MD [address] [place], [place] 852[address] Hematology 06/21/23 Yogesh Peraza MD [address] [place], [place] 212976 Hematology 06/21/23 Wendy Francis MD [address] [place], [place] 927745 Physical Medicine and Rehabilitation 08/28/23 [facility] [address] [place] [address] Assigned PCP 10/05/23 01/01/24 Noemi Calle, RN BMT Nurse Coordinator Transplant 11/20/23 Wendy Francis MD [address] [place] [address] [phone] Assigned Neuroscience Provider 11/24/23 Ishmael Austin MD [address] [place] [address] 407585 Dermatology 12/15/23 Carmela Palmer PA-C [address] [place] [phone] Assigned PCP 01/02/24 Romie Smith, PhD [address] [place] [phone] Assigned Behavioral Health Provider 06/03/24 Valdemar Thompson MD [address] [facility] [address] [place], [place] [address] Assigned Heart and Vascular Provider 07/03/24 Kera Gonzalez PA-C [facility] [address] [place] [address] Physician Hand Packager Dermatology 11/08/24 Kera Gonzalez PA-C [facility] [address] [place] [address] Assigned Dermatology Provider 01/31/25 documented as of this encounter
--- OUTSIDE RECORDS SUMMARY | 2025-04-06 21:31 | XMS_ITS | Encounter Summary ---
Author Organization [place] Address [facility] [place] [address] Care Team Providers Care Clinical Counselor Name Role Phone DiliayayoYogesh Unavailable Yogesh Peraza MD Unavailable [phone] Tracy Covarrubias [facility] Unavailable Yogesh Peraza MD Unavailable [phone] Ref-Primary, Physician Primary Care Provider Leeanne Pickard APRN COPYING MACHINE MECHANIC Unavailable Anyi Ha MD Unavailable [phone] Leeanne Pickard MAMMOGRAPHY TECHNOLOGIST COPYING MACHINE MECHANIC Primary Care Provider + Valdemar Thompson MD Unavailable Valdemar Thompson MD Unavailable Galo Yun RN Unavailable [phone] Jenni Camacho MAMMOGRAPHY TECHNOLOGIST COPYING MACHINE MECHANIC Unavailable Jenni Camacho MAMMOGRAPHY TECHNOLOGIST COPYING MACHINE MECHANIC Unavailable Mario Tsang RN Unavailable Unavailable Isaac Hennessy PA-C Unavailable [phone] Yogesh Peraza MD Unavailable [phone] Yogesh Peraza MD Unavailable [phone] Wendy Francis MD Unavailable [phone] [facility] Unavail able Noemi Calle RN Unavailable Unavailable Wendy Francis MD Unavailable [phone] Carmela Palmer PA-C Primary Care Provider Ishmael Austin MD Unavailable Carmela Palmer PA-C Unavailable [phone] Romie Smith PhD Unavailable [phone] Valdemar Thompson MD Unavailable Kera Gonzalez PA-C Unavailable [phone] Kera Gonzalez PA-C Unavailable [phone] Encounter Details Date Type Department Care Team (Late st Contact Info) Description 12/29/2021 MyC Medical Advice [facility] Blood and Marrow Transplant Program [address] [address] Rosmery Espinoza Social History Tobacco Use Types Packs/Day Years Used Date Smoking Tobacco: Former Cigarettes Q uit: 2004 Smokeless Tobacco: Never PHQ-2 Answer Date Recorded PHQ-2 Score 0 08/27/2021 Comments No Sex and Gender Information Value Date Recorded Sex Assigned at Not on file Legal Sex Female 4:09 AM ACCOUNTING LECTURER Gender Identity Not on file Sexual Orientation [...] Out COVID-19 09/30/2022 09/30/2022 09/30/2022 10:10 PM ACCOUNTING LECTURER Rule Out Pertussis 01/15/2023 01/17/2023 8:11 AM CDT Rule Out COVID-19 01/17/2023 01/17/2023 02/07/2023 11:39 PM CDT documented as of this encounter Care Teams Clinical Counselor Relationship Specialty Start Date End Date No Ref-Primary, Physician PCP - General 12/17/21 07/26/22 Leeanne Pickard APRN COPYING MACHINE MECHANIC PCP - General Family Medicine 07/27/22 11/09/23 Carmela Palmer PA-C [address] [place] [address] PCP - General Family Medicine 12/13/23 Yogesh Lynch [address] [place] [address] [phone] Referring Physician Medical Oncology 07/22/21 Yogesh Peraza MD [address] [place], [place] 0[address]396 BMT Physician Transplant 08/25/21 Tracy Covarrubias [facility] Algebra Teacher BMT - Adult 08/30/21 06/15/24 Yogesh Peraza MD [address] [place], [place] 0[address]126 Assigned Cancer Care Provider 10/24/21 Leeanne Pickard APRN COPYING MACHINE MECHANIC Assigned PCP 12/10/21 10/04/23 Anyi Ha MD [address] [place] [address] Assigned OBGYN Provider 03/19/22 Valdemar Thompson MD [address] [facility] [address] [place] [address] Cardiovascular Disease 07/27/22 Valdemar Thompson MD [address] [facility] [address] [place] [address] Assigned Heart and Vascular Provider 08/06/22 05/19/23 Galo Yun RN Specialty Mill Worker BMT - Adult 09/16/22 06/06/23 Jenni Camacho APRN COPYING MACHINE MECHANIC [address] [phone] Nurse Practitioner Hematology & Oncology 09/16/22 Jenni Camacho APRN COPYING MACHINE MECHANIC [address] [address] Nurse Practitioner Hematology & Oncology 09/16/22 Mario Tsang RN BMT Nurse Coordinator Transplant 06/07/23 11/19/23 Isaac Hennessy, PA-C [address] [place] [address] Assigned Heart and Vascular Provider 05/20/23 07/02/24 Yogesh Peraza MD [address] [place] [address] Hematology 06/21/23 Yogesh Peraza MD [address] [place] [address] Hematology 06/21/23 Wendy Francis MD [address] [place] [address] Physical Medicine and Rehabilitation 08/28/23 [facility] [address] [place], [place] [phone] Assigned PCP 10/05/23 01/01/24 Noemi Calle, RN BMT Nurse Coordinator Transplant 11/20/23 Wendy Francis MD [address] [place] [address] 868275 Assigned Neuroscience Provider 11/24/23 Ishmael Austin MD [address] [place] [address] 217865 Dermatology 12/15/23 Carmela Palmer, PA-C [address] [place] [phone] Assigned PCP 01/02/24 Romie Smith, PhD [address] [place] [phone] Assigned Behavioral Health Provider 06/03/24 Valdemar Thompson MD [address] [facility] [address] LETI MALONEY 372105 Assigned Heart and Vascular Provider 07/03/24 Kera Gonzalez PA-C Dermatology [address] [place] [address] Physician Antichecking Iron Worker Dermatology 11/08/24 Kera Gonzalez PA-C Dermatology [address] [place] [address] 233[address] Assigned Dermatology Provider 01/31/25 documented as of this encounter
--- OUTSIDE RECORDS SUMMARY | 2025-04-06 21:32 | XMS_ITS | Encounter Summary ---
Author Organization [place] Address [facility] [place] [address] Care Team Providers Care Dialysis Clinical Manager Name Role Phone Larrymarychuy Yogesh Unavailable Yogesh Peraza MD Unavailable [phone] Tracy Covarrubias [facility] Unavailable Yogesh Peraza MD Unavailable +[phone] Leeanne Pickard APRN PELT DROPPER Unavailable [phone] Anyi Ha MD Unavailable [phone] Leeanne Pickard APRN PELT DROPPER Primary Care Provider + Valdemar Thompson MD Unavailable Valdemar Thompson MD Unavailable Galo Yun RN Unavailable [phone] Jenni Camacho OCEANOGRAPHIC METEOROLOGIST PELT DROPPER Unavailable [facility] andrade RN Unavailable Unavailable Isaac Hennessy PA-C Unavailable [phone] Yogesh Peraza MD Unavailable [phone] Yogesh Peraza MD Unavailable [phone] Wendy Francis MD Unavailable [phone] [facility] Unavail able Noemi Calle RN Unavailable Unavailable Wendy Francis MD Unavailable [phone] Carmela Palmer PA-C Primary Care Provider Ishmael Austin MD Unavailable Carmela Palmer PA-C Unavailable [phone] CurrituckRomie perez PhD Unavailable [phone] Valdemar Thompson MD Unavailable Kera Gonzalez PA-C Unavailable [phone] Kera Gonzalez PA-C Unavailable [phone] Encounter Details Date Type Department Care Team (Late st Contact Info) Description 10/14/2022 MyC Medical Advice [facility] Blood and Marrow Transplant Program [address] [address] Yogesh Peraza MD [address] [place] [address] Social History Tobacco Use Types Packs/Day [...] on file Legal Sex Female 4:09 AM YACHT HAND Gender Identity Not on file Sexual Orientation Not on file COVID-19 Exposure Response Date Recorded In the last 10 days, have yo u been in contact with someone who was confirmed or suspected to have Coronavirus/COVID-19? No / Unsure 10/14/2022 10:08 AM YACHT HAND documented as of this encounter Plan of Treatment Not on file documented as of this encounter Visit Diagnoses Not on filedocumented in this encounter Additional Health Concerns Infection Onset Date Last Indicated Resolved Time Rule Out Pertussis 01/15/2023 01/17/2023 8:11 AM CDT Rule Out COVID-19 01/17/2023 01/17/2023 02/07/2023 11:39 PM CDT documented as of this encounter Care Teams Dialysis Clinical Manager Relationship Specialty Start Date End Date Leeanne Pickard APRN CNP PCP - General Family Medicine 07/27/22 11/09/23 Carmela Palmer PA-C [address] [place] [phone] PCP - General Family Medicine 12/13/23 Yogesh Lynch [address] [place] [address] 995006 Referring Physician Medical Oncology 07/22/21 Yogesh Peraza MD [address] [place] [address] BMT Physician Transplant 08/25/21 Tracy Covarrubias, [facility] Professor Of Political Science BMT - Adult 08/30/21 06/15/24 [place] [address] [place] [address] 888836 Assigned Cancer Care Provider 10/24/21 Leeanne Pickard APRN PELT DROPPER Assigned PCP 12/10/21 10/04/23 Anyi Ha MD [address] [place] [address] Assigned OBGYN Provider 03/19/22 Valdemar Thompson MD [address] [phone] [place], [place] 724145 Cardiovascular Disease 07/27/22 Valdemar Thompson MD [address] 7269000 [place], [place] 856815 Assigned Heart and Vascular Provider 08/06/22 05/19/23 Galo Yun, DEANGELO Specialty Keller Machine Operator BMT - Adult 09/16/22 06/06/23 Jenni Camacho APRN PELT DROPPER [address] [place] [address] Nurse Practitioner Hematology & Oncology 09/16/22 Mario Tsang RN BMT Nurse Coordinator Transplant 06/07/23 11/19/23 Isaac Hennessy, PALavelleC [address] [place], [place] 315015 Assigned Heart and Vascular Provider 05/20/23 07/02/24 Yogesh Peraza MD [address] [place] [address] Hematology 06/21/23 Yogesh Peraza MD [address] [place] [address] Hematology 06/21/23 Wendy Francis MD [address] [place] [address] Physical Medicine and Rehabilitation 08/28/23 [facility] [address] [place] [address] Assigned PCP 10/05/23 01/01/24 Noemi Calle, DEANGELO BMT Nurse Coordinator Transplant 11/20/23 Wendy Francis MD [address] [place] [address] 888045 Assigned Neuroscience Provider 11/24/23 Ishmael Austin MD [address] [place] [address] Dermatology 12/15/23 Carmela Palmer PA-C [address] [place] [address]98[address]83 Assigned PCP 01/02/24 Romie Smith, PhD [address] [place] [phone] Assigned Behavioral Health Provider 06/03/24 Valdemar Thompson MD [address] [address] Assigned Heart and Vascular Provider 07/03/24 Kera Gonzalez PA-C Dermatology [address] [place] [address] Physician Ladle Patcher Dermatology 11/08/24 Kera Gonzalez PA-C Dermatology [address] [place] [address] Assigned Dermatology Provider 01/31/25 documented as of this encounter
--- OUTSIDE RECORDS SUMMARY | 2025-04-06 21:32 | XMS_ITS | Encounter Summary ---
Author Organization [place] Address [facility] [place] [address] Care Team Providers Care Carton Stamper Name Role Phone Larrymarychuy Yogesh Unavailable Yogesh Peraza MD Unavailable [phone] Tracy Covarrubias [facility] Unavailable Yogesh Peraza MD Unavailable [phone] Leeanne Pickard APRN LOCAL SALES MANAGER Unavailable [phone] Anyi Ha MD Unavailable [phone] Leeanne Pickard APRN LOCAL SALES MANAGER Primary Care Provider + Valdemar Thompson MD Unavailable Valdemar Thompson MD Unavailable Galo Yun RN Unavailable [phone] Jenni Camacho TOOL AND EQUIPMENT RENTAL CLERK LOCAL SALES MANAGER Unavailable Jenni Camacho APRN LOCAL SALES MANAGER Unavailable [facility] RN Unavailable Unavailable Isaac Hennessy PA-C Unavailable [phone] Yogesh Peraza MD Unavailable [phone] Yogesh Peraza MD Unavailable [phone] Wendy Francis MD Unavailable [phone] [facility] Unavail able Noemi Calle RN Unavailable Unavailable Wendy Francis MD Unavailable [phone] Carmela Palmer PA-C Primary Care Provider [phone] Ishmael Austin MD Unavailable Carmela Palmer PA-C Unavailable [phone] Romie Smith PhD Unavailable [phone] Valdemar Thompson MD Unavailable Kera Gonzalez PA-C Unavailable [phone] Kera Gonzalez PA-C Unavailable [phone] Encounter Details Date Type Department Care Team (Late st Contact Info) Description 09/09/2022 MyC Medical Advice [facility] Blood and Marrow Transplant Program [address] [address] Yogesh Peraza MD [address] [place] [address] Social History Tobacco Use Types Packs/Day [...] on file Legal Sex Female 4:09 AM SENIOR LEAD JAVA DEVELOPER Gender Identity Not on file Sexual Orientation Not on file COVID-19 Exposure Response Date Recorded In the last 10 days, have yo u been in contact with someone who was confirmed or suspected to have Coronavirus/COVID-19? No / Unsure 08/26/2022 1:51 PM SENIOR LEAD JAVA DEVELOPER documented as of this encounter Plan of Treatment Not on file documented as of this encounter Visit Diagnoses Not on filedocumented in this encounter Additional Health Concerns Infection Onset Date Last Indicated Resolved Time Rule Out COVID-19 09/30/2022 09/30/2022 09/30/2022 10:10 PM SENIOR LEAD JAVA DEVELOPER Rule Out Pertussis 01/15/2023 01/17/2023 8:11 AM CDT Rule Out COVID-19 01/17/2023 01/17/2023 02/07/2023 11:39 PM CDT documented as of this encounter Care Teams Carton Stamper Relationship Specialty Start Date End Date Leeanne Pickard APRN CNP PCP - General Family Medicine 07/27/22 11/09/23 Carmela Palmer, JOSE [address] [place] [phone] PCP - General Family Medicine 12/13/23 Yogesh Lynch [facility] [place], [place] [address] Referring Physician Medical Oncology 07/22/21 Yogesh Peraza MD [address] [place], [place] 138226 BMT Physician Transplant 08/25/21 Tracy Covarrubias, [facility] Patient Clerical Assistant BMT - Adult 08/30/21 06/15/24 Yogesh Peraza MD [address] [place], [place] 589136 Assigned Cancer Care Provider 10/24/21 Leeanne Pickard APRN LOCAL SALES MANAGER Assigned PCP 12/10/21 10/04/23 Anyi Ha MD [address] [place] [address] Assigned OBGYN Provider 03/19/22 Valdemar Thompson MD [address] [facility] [address] [place], [place] 488[address] Cardiovascular Disease 07/27/22 Valdemar Thompson MD [address] [facility] [place] [address] [place], [place] 280235 Assigned Heart and Vascular Provider 08/06/22 05/19/23 Galo Yun, DEANGELO Specialty Associate Trainer BMT - Adult 09/16/22 06/06/23 Jenni Camacho APRN LOCAL SALES MANAGER [address] [place] [address] Nurse Practitioner Hematology & Oncology 09/16/22 Jenni Camacho APRN LOCAL SALES MANAGER [address] [place] [address] Nurse Practitioner Hematology & Oncology 09/16/22 Mario Tsang RN BMT Nurse Coordinator Transplant 06/07/23 11/19/23 Isaac Hennessy PA-C 6405 [place] [address] Assigned Heart and Vascular Provider 05/20/23 07/02/24 Yogesh Peraza MD [address] [place] [address] Hematology 06/21/23 [place] [address] [place] [address] Hematology 06/21/23 Wendy Francis MD [address] [place] [address] Physical Medicine and Rehabilitation 08/28/23 [facility] [address] [place] [address] Assigned PCP 10/05/23 01/01/24 Noemi Calle, DEANGELO BMT Nurse Coordinator Transplant 11/20/23 Wendy Francis MD [address] [place] [address] 493305 Assigned Neuroscience Provider 11/24/23 Ishmael Austin MD [address] [place] [address] Dermatology 12/15/23 Carmela Palmer, PA-C [address] [place] [phone] Assigned PCP 01/02/24 Romie Smith, PhD [address] [place] [phone] Assigned Behavioral Health Provider 06/03/24 Valdemar Thompson MD [address] [facility] [address] [place] [address] Assigned Heart and Vascular Provider 07/03/24 Kera Gonzalez PA-C Dermatology [address] [place] [address] Physician Retort Press Operator Dermatology 11/08/24 Kera Gonzalez PA-C Dermatology [address] [place] [address] Assigned Dermatology Provider 01/31/25 documented as of this encounter
--- OUTSIDE RECORDS SUMMARY | 2025-04-06 21:32 | XMS_ITS | Encounter Summary ---
Author Organization [place] [facility] [place] [address] Care Team Providers Care Solutions Development Analyst Name Role Phone DiliayayoYogesh Unavailable Yogesh Peraza MD Unavailable [phone] Tracy Covarrubias [facility] Unavailable Yogesh Peraza MD Unavailable [phone] Ref-Primary, Physician Primary Care Provider Leeanne Pickard APRN MARINE ENGINEER Unavailable Anyi aH MD Unavailable [phone] Leeanne Pickard CERTIFIED HAND THERAPIST MARINE ENGINEER Primary Care Provider + Valdemar Thompson MD Unavailable Valdemar Thompson MD Unavailable Galo Yun RN Unavailable [phone] Jenni Camacho CERTIFIED HAND THERAPIST MARINE ENGINEER Unavailable Jenni Camacho CERTIFIED HAND THERAPIST MARINE ENGINEER Unavailable Mario Tsang RN Unavailable Unavailable Isaac Hennessy PA-C Unavailable [phone] Yogesh Peraza MD Unavailable [phone] Yogesh Peraza MD Unavailable [phone] Wendy Francis MD Unavailable [phone] [facility] Unavail able Noemi Calle RN Unavailable Unavailable Wendy Francis MD Unavailable [phone] Carmela Palmer PA-C Primary Care Provider [phone] Ishmael Austin MD Unavailable Carmela Palmer PA-C Unavailable [phone] Romie Smith PhD Unavailable [phone] Valdemar Thompson MD Unavailable Kera Gonzalez PA-C Unavailable [phone] Kera Gonzalez PA-C Unavailable [phone] Encounter Details Date Type Department Care Team (Late st Contact Info) Description 07/07/2022 MyC Medical Advice [address] [place] [address] Tracy Blackmon, RN Social History Tobacco Use Types Packs/Day [...] on file Legal Sex Female 4:09 AM WRAPAROUND FACILITATOR Gender Identity Not on file Sexual Orientation Not on file COVID-19 Exposure Response Date Recorded In the last 10 days, have yo u been in contact with someone who was confirmed or suspected to have Coronavirus/COVID-19? No / Unsure 07/04/2022 8:50 AM CDT documented as of this encounter Miscellaneous Notes * Telephone Encounter - Tracy Blackmon RN - 07/11/2022 12:49 PM CDT Scheduling, Please see Dr. Ha's note below. She wanted to try to get pt in by 07/12/2022 if possible and add her onto a call day to try to get her in within the right time frame. Thanks, Tracy Blackmon RN Pap Tracking * Telephone Encounter - Valery Ross RN - 07/08/2022 3:37 PM CDT Routed to the scheduling pool. Please help this pt get an appt for a colposcopy with Dr. Ha. Valery Bravo RN * Telephone Encounter - Anyi Ha MD - 07/08/2022 3:34 PM CDT See notes. Anyi Ha MD * Telephone Encounter - Tracy Blackmon RN - 07/08/2022 10:08 AM CDT Rocael Ha, Pt's platelets are at a safe level now for a colposcopy. See note below. Would someone from [employer] please give pt a call to get her on the schedule for a colposcopy? Thanks! Note I would recommend that we complete by 4 months from the pap if possible, but it's more important toget her platelets up right now. Once they are where her oncologist would like, she can call us and we can add on to a call day, etc to get her in within the right time frame. ?? Anyi Ha MD [facility] Obstetrics and Gynecology ?? Tracy Blackmon, RN Pap Tracking documented in this encounter Plan of Treatment Not on file documented as of this encounter Visit Diagnoses Not on filedocumented in this encounter Additional Health Concerns Infection Onset Date Last Indicated Resolved Time Rule Out COVID-19 09/30/2022 09/30/2022 09/30/2022 10:10 PM WRAPAROUND FACILITATOR Rule Out Pertussis 01/15/2023 01/17/2023 8:11 AM CDT Rule Out COVID-19 01/17/2023 01/17/2023 02/07/2023 11:39 PM CDT documented as of this encounter Care Teams Solutions Development Analyst Relationship Specialty Start Date End Date No Ref-Primary, Physician PCP - General 12/17/21 07/26/22 Leeanne Pickard APRN CNP PCP - General Family Medicine 07/27/22 11/09/23 Carmela Palmer PA-C [address] [place] [phone] PCP - General Family Medicine 12/13/23 Yogesh Lynch [address] [place], [place] [address] Referring Physician Medical Oncology 07/22/21 Yogesh Peraza MD [address] [place] [address] BMT Physician Transplant 08/25/21 Tracy Covarrubias, [facility] Residence Life Director BMT - Adult 08/30/21 06/15/24 Yogesh Peraza MD [address] [place], [place] [phone] Assigned Cancer Care Provider 10/24/21 Leeanne Pickard APRN MARINE ENGINEER Assigned PCP 12/10/21 10/04/23 Anyi Ha MD [address] [place] [address] Assigned OBGYN Provider 03/19/22 Valdemar Thompson MD [address] [facility] [address] [place], [place] [phone] Cardiovascular Disease 07/27/22 Valdemar Thompson MD [address] [facility] [address] [place], [place] [phone] Assigned Heart and Vascular Provider 08/06/22 05/19/23 Galo Yun RN Specialty Rehab Specialist BMT - Adult 09/16/22 06/06/23 Jenni Camacho APRN MARINE ENGINEER [address] [place] [address] Nurse Practitioner Hematology & Oncology 09/16/22 Jenni Camacho APRN MARINE ENGINEER [address] [place] [address] Nurse Practitioner Hematology & Oncology 09/16/22 Mario Tsang RN BMT Nurse Coordinator Transplant 06/07/23 11/19/23 Isaac Hennessy PA-C [address] [place] [address] Assigned Heart and Vascular Provider 05/20/23 07/02/24 Yogesh Peraza MD [address] [place] [address] Hematology 06/21/23 Yogesh Peraza MD [address] [place] [address] Hematology 06/21/23 Wendy Francis MD [address] [place] [address] [phone] Physical Medicine and Rehabilitation 08/28/23 [facility] [address] [place], [place] [phone] Assigned PCP 10/05/23 01/01/24 Noemi Calle, RN BMT Nurse Coordinator Transplant 11/20/23 Wendy Francis MD [address] [place] [address] [phone] Assigned Neuroscience Provider 11/24/23 Ishmael Austin MD [address] [place] [address] [phone] Dermatology 12/15/23 Carmela Palmer PA-C [address] [place] [phone] Assigned PCP 01/02/24 Romie Smith, PhD [address] [place] [phone] Assigned Behavioral Health Provider 06/03/24 Valdemar Thompson MD [address] [facility] [address] [place] [address] Assigned Heart and Vascular Provider 07/03/24 Kera Gonzalez PA-C [facility] [address] [place] [address] Physician Geothermal Field Technician Dermatology 11/08/24 Kera Gonzalez PA-C Dermatology [address] [place] [phone] Assigned Dermatology Provider 01/31/25 documented as of this encounter
--- OUTSIDE RECORDS SUMMARY | 2025-04-06 21:32 | XMS_ITS | Clinical Summary ---
Author Organization [place] Address [address] [place] [address]. [place] [address] Care Team Providers Care Evs Tech Name Role Phone LarryYogesh perrin Unavailable Yogesh Peraza MD Unavailable [phone] Yogesh Peraza MD Unavailable [phone] Anyi Ha MD Unavailable [phone] Valdemar Thompson MD Unavailable Jenni Camacho APRN CABINET AND TRIM INSTALLER Unavailable Yogesh Peraza MD Unavailable [phone] Yogesh Peraza MD Unavailable [phone] Wendy Francis MD Unavailable [phone] Noemi Calle RN Unavailable Unavailable Wendy Francis MD Unavailable [phone] Carmela Palmer PA-C Primary Care Provider [phone] Ishmael Austin MD Unavailable Carmela Palmer PA-C Unavailable [phone] Romie Smith PhD Unavailable [phone] Valdemar Thompson MD Unavailable Kera Gonzalez PA-C Unavailable [phone] Kera Gonzalez PA-C Unavailable [phone] Allergies Active Allergy Reactions Criticality Noted Date Comments Codeine GI Disturbance Low 10/08/2015 Hydroxyzine Other (See Comments) Low 10/08/2015 Patient was given this med during or after surgery with Demerol and is unsure which on she had a reaction to. La Nena Valdez, SAGAR 10/08/2015 4:24 PM Caused arm swelling & rash Meperidine Other (See Comments) Low 11/15/2006 Nsaids Other (See Comments) Medium 07/20/2022 Concerned about ulcers after bariatric surgery. Medications aspirin (ASA) 81 MG chewable tablet Take 81 mg by mouth daily 2 Active multivitamin (CENTRUM SILVER) tablet Take 1 tablet by mouth daily Active fluticasone (FLONASE) 50 MCG/ACT nasal sprayIndications :Acute bacterial sinusitis [place] 1 spray into both nostrils daily as needed for rhinitis or allergies 16 g 3 Active ezetimibe (ZETIA) 10 MG tabletIndication s:Hyperlipidemia LDL goal <70 Take 1 tablet (10 mg) by mouth daily. 90 tablet 3 4 Active rosuvastatin (CRESTOR) 40 MG tabletIndication s:Hyperlipidemia LDL goal <70 Take 1 tablet (40 mg) by mouth daily. Appointment required for further refills 90 tablet 3 4 Active clobetasol (TEMOVATE) 0.05 % external ointmentIndicati ons:Irritant dermatitis Apply twice daily to areas of rash for 7-14 days. Restart if rash flares. Not for the face, underarms, or groin. 30 g 1 5 Active FLUoxetine (PROZAC) 40 MG capsuleIndicatio ns:Mood changes Take 1 capsule (40 mg) by mouth daily. Take with 20 mg for total of 60 mg 90 capsule 1 5 Active traZODone (DESYREL) 50 MG tabletIndication s:Insomnia, unspecified type Take 1 tablet (50 mg) by mouth at bedtime. 90 tablet 1 5 Active FLUoxetine (PROZAC) 20 MG capsuleIndicatio ns:Mood changes Take 1 capsule (20 mg) by mouth daily. Take with 40 mg for total of 60 mg 90 capsule 1 5 Active Active Problems Patient Care Coordination No te Formatting of this note migh t be different from the original. Line Company: [facility] [phone] for line care supplies Referral made for line care: Yes IV medications needed at discharge: None Pharmacy concerns: None PT/OT/therapies recommended: No Referral made for PT/OT/therapies: NA D/c location: Home - [place] Has placement need been communicated to Social Work? 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 Plan: colposcopy due before 06/11/22 03/29/22 Onc visit: HPV positive on recent pap. Hold off on biopsy until plts/WBC improved. Pt needs pre-colp instructions. 05/17/22 Tele Enc. Plan: I would recommend that we complete by 4 months from the pap if possible, but it's more important to get her platelets up right now. Once they are where her oncologist would like, she can call us and we can add on to a call day, etc to get her in within the right time frame. [place] due 07/12/22 07/12/22 [place] ECC: scant sample, suggesting RIGO 2. Plan repeat ECC. Pt notified by care team 08/26/22 ECC - benign. Plan cotest in 1 year. 11/23/23 NIL pap, neg HPV. Plan cotest in 1 year due by 11/22/24 01/28/25 NIL Pap, Neg HPV. Plan cotest in 3 years per provider Hypogammaglobulinemia 03/07/2022 Neutropenia 03/03/2022 Acute cholecystitis 01/10/2022 Acute abdominal pain 01/10/2022 Non-intractable vomiting wit h nausea, unspecified vomiting type 01/10/2022 Status post bone marrow transplant 10/18/2021 ALL (acute lymphoblastic leukemia) 09/08/2021 Acute lymphoblastic leukemia (ALL) in remission 09/08/2021 ALL (acute lymphocytic leukemia) 08/23/2021 Encounters Date Type Department Care Team Description 01/28/2025 1:30 PM CDT Office Visit [address] [phone] Carmela Palmer PA-C Routine general medical examination at a [facility] facility (Primary Dx); Other fatigue; Need for pneumococcal 20-valent conjugate vaccination; Cervical cancer screening; 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); Insomnia, unspecified type; Mood changes 01/28/2025 Results Follow-Up [address] [phone] Carmela Palmer PA-C Subj: Message about your results 01/28/2025 Travel 01/23/2025 Results Follow-Up [address] [phone] Kera Gonzalez PA-C Subj: Message about your results 01/16/2025 10:15 AM CDT Office Visit [address] [phone] Kera Gonzalez PA-C Encounter for screening for malignant neoplasm of skin (Primary Dx); Multiple nevi; Pedraza angioma; Seborrheic keratoses; Irritant dermatitis; Neoplasm of unspecified behavior of bone, soft tissue, and skin; Lentigines 01/16/2025 Travel from Last 3 Months Immunizations Immunization Administration Dates Next Due COVID-19 12+ (Pfizer) 08/28/2023 DTaP/HepB/IPV 08/28/2023,02/14/2023,12/20/2022 P4d3-49 Novel Flu- Nasal 07/02/2009 HIB (PRP-T) 08/28/2023,02/14/2023,12/20/2022 HepA, Unspecified 03/26/2013 HepA-Peds, Unspecified 03/26/2013 Hepatitis A (VAQTA)(ADULT 19+) 03/26/2013,2012 INFLUENZA,TRIVALENT (FLUCELVAX) 06/14/2024 Influenza (H1N1) 07/02/2009 Influenza (IIV3) PF 06/11/2015,06/06/2014,2012 Influenza (intradermal) 07/24/2021 Influenza (prior to 2023) 06/14/2012,07/10/2011, 07/01/2010 Influenza Vaccine 18-64 (Flublok) 08/28/2023, Influenza Vaccine >6 months,quad, PF ,07/05/2020,07/08/2019,2017,06/08/2017,06/08/2016 Influenza, Split Virus, Triv alent, Pf (Fluzone\Fluarix) 06/14/2012,07/10/2011,07/01/2010 MMR (MMRII) 08/28/2023 Pneumo Conj 13-V (2010&after) 08/28/2023, 023,12/09/2022 Pneumococcal 20 valent Conju gate (Prevnar 20) 01/28/2025 TD,PF 7+ (Tenivac) 08/31/2018 TDAP (Adacel,Boostrix) 01/22/2008 Td (Adult), Adsorbed 10/04/2002 Zoster recombinant adjuvante d (Shingrix) 02/14/2023,12/09/2022,05/05/2021 Family History Medical History Relation Comments Colon Cancer No family hx of Social History Tobacco Use Types Packs/Day Years Used Date Smoking Tobacco: Former Cigarettes Q uit: 2005 Smokeless Tobacco: Never Tobacco Cessation:Counseling Given: Not Answered Alcohol Use Standard Drinks/Week Comments Yes 0 (1 standard drink = 0.6 oz pur e alcohol) Very rare Social Connection and Isolation Panel [NHANES] A nswer Date Recorded Frequency of Communication with Friends and Fami ly Not on file 01/28/2025 How often do you get together with friends or re latives? Once a week 01/28/2025 Attends Anabaptism Services Not on file 01/28 Active Member [...] Answer Date Recorded PHQ-2 Score 0 01/16/2025 [facility] - Occupational [...] in an abandoned building, in an overnight nursing home, or couch-surfing.) Yes 01/28/2025 Are you worried [...] on file Legal Sex Female 4:09 AM OUTSOLE BEVELER Gender Identity Not on file Sexual Orientation Not on file Last Filed Vital Signs Vital Sign Reading Time Taken Comments Blood Pressure 94/56 01/28/2025 1:20 PM CDT Pulse 74 01/28/2025 1:20 PM CDT Temperature 36.8 C (98.3 F) 01/28/2025 1:20 PM CDT Respiratory Rate 12 01/28/2025 1:20 PM CDT Oxygen Saturation 99% 01/28/2025 1:20 PM CDT Inhaled Oxygen Concentration - - Weight 66.1 kg (145 lb 11.2 oz) 01/28/2025 1:20 PM CDT Height 167.6 cm (5' 6) 01/28/2025 1:20 PM CDT Body Mass Index 23.52 01/28/2025 1:20 PM CDT Plan of Treatment Health Maintenance Due Date Last Done Comments CT COLONOGRAPHY 1969 FIT 1969 FLEX SIG 1969 sDNA (Cologuard) 1969 ANNUAL REVIEW OF HM ORDERS 05/02/2024 05/02/2023, COVID-19 VACCINE (5 - Pfizer risk 2023- season) 2024 06/14/2024, 08/28/2023, 09/16/2020, Additional history exists INFLUENZA VACCINE (#1) 2025 , 08/28/2023, 07/04/2022, Additional history exists MAMMO SCREENING 08/16/2025 08/16/2024, 12/2022, 08/18/2020, Additional history exists LIPID 01/28/2026 01/28/2025, 05/12, 07/19/2023, Additional history exists YEARLY PREVENTIVE VISIT 01/28/2026 01/28/2025, 11/22 DIABETES SCREENING 01/29/2028 01/28/2025, 1 , 05/24/2024, Additional history exists HPV FOLLOW-UP 01/29/2028 01/28/2025, 11/09, 03/11/2022, Additional history exists PAP FOLLOW-UP 01/29/2028 01/28/2025, 01/10, 11/23/2023, Additional history exists ADVANCE CARE PLANNING 01/28/2030 01/28/2025 DTAP/TDAP/TD VACCINE (6 - Td or Tdap) 08/28/2033 08/28/2023, 02/14/2023, 12/20/2022, Additional history exists COLONOSCOPY 08/23/2034 08/23/2024, 08/23/2024 COLORECTAL CANCER SCREENING 08/23/2034 HIV SCREENING Completed 08/25/2021, 08/11, 05/23/2021 ZOSTER VACCINE Completed 02/14/2023, 11/11, 05/05/2021 HEPATITIS C SCREENING Completed 06/02/2023 , 01/09/2022, 08/25/2021, Additional history exists HEPATITIS B VACCINE Completed 08/28/2023, 02/14/2023, 12/20/2022 PHQ-2 (once per calendar year) Completed 01/16/2025, 03/28/2024, 12/13/2023, Additional history exists PAP Discontinued 01/28/2025, 05/2 , 11/23/2023, Additional history exists PNEUMOCOCCAL VACCINE 50+ YEARS Completed 01/28/2025, 08/28/2023, 02/14/2023, Additional history exists HPV VACCINE (No Doses Required) Completed MENINGITIS VACCINE Aged Out No longer eligible based on patient's age to complete this topic Procedures Procedure Name Priority Date/Time Associated Diagnosis Comments CBC WITH PLATELETS & DIFFERENTIAL Routine 01/28/2025 2:43 PM CDT Routine general medical examination at a health care facility Other fatigue CBC WITH PLATELETS AND DIFFERENTIAL Routine 01/28/2025 2:43 PM CDT Routine general medical examination at a health care facility Other fatigue LIPID REFLEX TO DIRECT LDL PANEL Routine 01/28/2025 2:43 PM CDT Routine general medical examination at a health care facility Other fatigue COMPREHENSIVE METABOLIC PANEL Routine 01/28/2025 2:43 PM CDT Routine general medical examination at a health care facility Other fatigue VITAMIN B12 Routine 01/28/2025 2:43 PM CDT Routine general medical examination at a health care facility Other fatigue VITAMIN D DEFICIENCY SCREENING Routine 01/28/2025 2:43 PM CDT Routine general medical examination at a health care facility Other fatigue TSH WITH FREE T4 REFLEX Routine 01/29/20 2:43 PM CDT Routine general medical examination at a health care facility Other fatigue HPV AND GYNECOLOGIC CYTOLOGY PANEL Routine 01/28/2025 2:04 PM CDT Cervical cancer screening GYNECOLOGIC CYTOLOGY Routine 01/28/2025 2:04 PM CDT Cervical cancer screening MS TANGENTIAL BIOPSY OF SKIN, FIRST/SINGLE LESION Routine 01/16/2025 10:33 AM CDT Neoplasm of unspecified behavior of bone, soft tissue, and skin DERMATOPATHOLOGY EXAM Routine 01/16/2025 10:33 AM CDT Neoplasm of unspecified behavior of bone, soft tissue, and skin COLONOSCOPY Routine 08/23/2024 8:59 AM OUTSOLE BEVELER MA SCREENING BILATERAL W/ SHAN Routine 08/16/2024 10:35 AM OUTSOLE BEVELER Visit for screening mammogram HEPATITIS C SCREEN REFLEX TO HCV RNA QUANT AND GENOTYPE Routine 06/02/2023 10:40 AM CDT Other fatigue Arthralgia, unspecified joint HIV ANTIGEN ANTIBODY COMBO Routine 08/25/2021 10:59 AM OUTSOLE BEVELER 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) Personal history of diseases of blood and blood-forming organs from Last 3 Months or Most Recently Relevant to Health Maintenance Results * (ABNORMAL) CBC with platelets and differential (01/28/2025 2:43 PM CDT) WBC Count 2.5(L) 4.0 - 11.0 10e3/uL 01/28/2025 2:50 PM CDT [facility] RBC Count 3.43(L) 3.80 - 5.20 10e6/uL 01/28/2025 2:50 PM CDT [facility] Hemoglobin 11.2(L) 11.7 - 15.7 g/dL 01/28/2025 2:50 PM CDT [facility] Hematocrit 33.9(L) 35.0 - 47.0 % 01/28/2025 2:50 PM CDT [facility] MCV 99 78 - 100 fL 01/28/2025 2:50 PM CDT [facility] MCH 32.7 26.5 - 33.0 pg 01/28/2025 2:50 PM CDT [facility] MCHC 33.0 31.5 - 36.5 g/dL 01/28/2025 2:50 PM CDT [facility] RDW 13.0 10.0 - 15.0 % 01/28/2025 2:50 PM CDT [facility] Platelet Count 105(L) 150 - 450 10e3/uL 01/28/2025 2:50 PM CDT [facility] % Neutrophils 48 % 01/28/2025 2:50 PM CDT [facility] % Lymphocytes 34 % 01/28/2025 2:50 PM CDT [facility] % Monocytes 12 % 01/28/2025 2:50 PM CDT [facility] % Eosinophils 6 % 01/28/2025 2:50 PM CDT [facility] % Basophils 0 % 01/28/2025 2:50 PM CDT [facility] % Immature Granulocytes 0 % 01/28/2025 2:50 PM CDT [facility] Absolute Neutrophils 1.2(L) 1.6 - 8.3 10e3/uL 01/28/2025 2:50 PM CDT [facility] Absolute Lymphocytes 0.8 0.8 - 5.3 10e3/uL 01/28/2025 2:50 PM CDT [facility] Absolute Monocytes 0.3 0.0 - 1.3 10e3/uL 01/28/2025 2:50 PM CDT [facility] Absolute Eosinophils 0.2 0.0 - 0.7 10e3/uL 01/28/2025 2:50 PM CDT [facility] Absolute Basophils 0.0 0.0 - 0.2 10e3/uL 01/28/2025 2:50 PM CDT [facility] Absolute Immature Granulocytes 0.0 <=0.4 10e3/uL 01/28/2025 2:50 PM CDT [facility] Blood STRUCTURE OF LEFT UPPER LIMB / Unknown Venipuncture / Unknown 01/28/2025 2:43 PM CDT 01/28/2025 2:48 PM CDT us Carmela Palmer PA-C LAB - BLOOD ORDERABLES Final R esult [facility] [place] [facility] [address] [facility] (no room number, 1st floor of clinic) [place] [address], [facility] * (ABNORMAL) Vitamin D Deficiency (01/28/2025 2:43 PM CDT) Vitamin D, Total (25-Hydroxy) 52(H) 20 - 50 ng/mL 01/29/2025 3:22 AM CDT [facility] Comment:indicates supplement ation, with increased risk of hypercalciuria Blood STRUCTURE OF LEFT UPPER LIMB / Unknown Venipuncture / Unknown 01/28/2025 2:43 PM CDT 01/28/2025 2:48 PM CDT Narrative [facility] - 01/29/2025 3:22 AM CDT Season, race, dietary intake, and treatment affect the concentration of 89-[id number]-Rfnbdns D. Values may decrease during winter months and increase during summer months. Vitamin D determination is routinely performed by an immunoassay specific for 25 hydroxyvitamin D3. If an individual is on vitamin D2(ergocalciferol) supplementation, please specify 25 [place] vitamin D2 and D3 level determination by LCMSMS test VITD23. Carmela Palmer PA-C LAB - BLOOD ORDERABLES Final R esult Performing Organization Address City/[facility]/ZIP Co de Phone Number [facility] [place] [facility] [address], [address] [id number] [place] [address] * TSH with free T4 reflex (01/28/2025 2:43 PM CDT) TSH 1.39 0.30 - 4.20 uIU/mL 01/29/2025 3:22 AM CDT [facility] Blood STRUCTURE OF LEFT UPPER LIMB / Unknown Venipuncture / Unknown 01/28/2025 2:43 PM CDT 01/28/2025 2:48 PM CDT Carmela Palmer PA-C LAB - BLOOD ORDERABLES Final R esult Performing Organization Address City/[facility]/ZIP Co de Phone Number [facility] [address], [address] [id number] * (ABNORMAL) Lipid panel reflex to direct LDL Non-fasting (01/28/2025 2:43 PM CDT) Cholesterol 102 <200 mg/dL 01/29/2025 3:22 AM CDT [facility] Triglycerides 80 <150 mg/dL 01/29/2025 3:22 AM CDT [facility] Direct Measure HDL 35(L) >=50 mg/dL 01/29/2025 3:22 AM CDT [facility] LDL Cholesterol Calculated 51 <100 mg/dL 01/29/2025 3:22 AM CDT [facility] Non HDL Cholesterol 67 <130 mg/dL 01/29/2025 3:22 AM CDT [facility] Patient Fasting > 8hrs? Unknown 01/29/2025 3:22 AM CDT [facility] Blood STRUCTURE OF LEFT UPPER LIMB / Unknown Venipuncture / Unknown 01/28/2025 2:43 PM CDT 01/28/2025 2:48 PM CDT Narrative [facility] - 01/29/2025 3:22 AM CDT Cholesterol Desirable: < 200 mg/dL Borderline High: 200 - 239 mg/dL High: >= 240 mg/dL Triglycerides Normal: < 150 mg/dL Borderline High: 150 - 199 mg/dL High: 200-499 mg/dL Very High: >= 500 mg/dL Direct Measure HDL Female: >= 50 mg/dL Male: >= 40 mg/dL LDL Cholesterol Desirable: < 100 mg/dL Above Desirable: 100 - 129 mg/dL Borderline High: 130 - 159 mg/dL High: 160 - 189 mg/dL Very High: >= 190 mg/dL Non HDL Cholesterol Desirable: < 130 mg/dL Above Desirable: 130 - 159 mg/dL Borderline High: 160 - 189 mg/dL High: 190 - 219 mg/dL Very High: >= 220 mg/dL us Carmela Palmer PA-C LAB - BLOOD ORDERABLES Final R esult [facility] [address], [address] [place] [address], [facility] * (ABNORMAL) Comprehensive metabolic panel (BMP + Alb, Alk Phos, ALT, AST, Total. Bili, TP) (01/28/2025 2:43 PM CDT) Sodium 137 135 - 145 mmol/L 01/29/2025 3:22 AM CDT [facility] Potassium 4.2 3.4 - 5.3 mmol/L 01/29/2025 3:22 AM CDT [facility] Carbon Dioxide (CO2) 27 22 - 29 mmol/L 01/29/2025 3:22 AM CDT [facility] Anion Gap 8 7 - 15 mmol/L 01/29/2025 3:22 AM CDT [facility] Urea Nitrogen 12.7 6.0 - 20.0 mg/dL 01/29/2025 3:22 AM CDT [facility] Creatinine 0.80 0.51 - 0.95 mg/dL 01/29/2025 3:22 AM CDT [facility] GFR Estimate 87 >60 mL/min/1.7 3m2 01/29/2025 3:22 AM CDT [facility] Comment:eGFR calculated us2020 CKD-EPI equation. Calcium 8.7(L) 8.8 - 10.4 mg/dL 01/29/2025 3:22 AM CDT [facility] Chloride 102 98 - 107 mmol/L 01/29/2025 3:22 AM CDT [facility] Glucose 84 70 - 99 mg/dL 01/29/2025 3:22 AM CDT [facility] Alkaline Phosphatase 139 40 - 150 U/L 01/29/2025 3:22 AM CDT [facility] AST 86(H) 0 - 45 U/L 01/29/2025 3:22 AM CDT [facility] ALT 62(H) 0 - 50 U/L 01/29/2025 3:22 AM CDT [facility] Protein Total 6.8 6.4 - 8.3 g/dL 01/29/2025 3:22 AM CDT [facility] Albumin 3.7 3.5 - 5.2 g/dL 01/29/2025 3:22 AM CDT [facility] Bilirubin Total 0.5 <=1.2 mg/dL 01/29/2025 3:22 AM CDT [facility] Patient Fasting > 8hrs? Unknown 01/29/2025 3:22 AM CDT [facility] Blood STRUCTURE OF LEFT UPPER LIMB / Unknown Venipuncture / Unknown 01/28/2025 2:43 PM CDT 01/28/2025 2:48 PM CDT us Carmela Palmer PA-C LAB - BLOOD ORDERABLES Final R esult [facility] [address], [address] [place] [address] * (ABNORMAL) Vitamin B12 (01/28/2025 2:43 PM CDT) Vitamin B12 1,364(H) 232 - 1,245 pg/mL 01/29/2025 3:22 AM CDT [facility] Blood STRUCTURE OF LEFT UPPER LIMB / Unknown Venipuncture / Unknown 01/28/2025 2:43 PM CDT 01/28/2025 2:48 PM CDT us Carmela Palmer PA-C LAB - BLOOD ORDERABLES Final R esult [facility] [address], [address] [place] [id number] * HPV and Gynecologic Cytology Panel - Recommended Age 30 - 65 Years (01/28/2025 2:04 PM CDT) Human Papilloma Virus 16 DNA Negative Negative 01/29/2025 6:37 PM CDT [facility] Human Papilloma Virus 18 DNA Negative Negative 01/29/2025 6:37 PM CDT [facility] Human Papilloma Virus Other Negative Negative 01/29/2025 6:37 PM CDT [facility] FINAL DIAGNOSIS This patient's sample is negative for high risk HPV DNA. METHODOLOGY: The [facility] [employer] system uses automated extraction, simultaneous amplification of HPV (E6/E7 oncogenes) and beta-globin, followed by real time detection of fluorescent labeled HPV and beta globin using specific oligonucleotide probes. The test specifically identifies types HPV 16 DNA and HPV 18 DNA while concurrently detecting the rest of the high risk types (31, 33, 35, 39, 45, 51, 52, 56, 58, 59, 66 or 68). COMMENTS: This test is not intended for use as a screening device for woman under age 30 with normal cervical cytology. Results should be correlated with cytologic and histologic findings. Close clinical follow up is recommended. Please see the separate Gynecologic Cytology (Pap) report from the same collection date. 01/29/2025 6:37 PM CDT [facility] Brushing ENDOCERVICAL STRUCTURE / Unknown Non-blood Collection / Unknown 01/28/2025 2:04 PM CDT 01/28/2025 2:29 PM CDT Carmela Palmer PA-C LAB - BLOOD ORDERABLES Final R esult [facility] Specialty Lab [address] [facility] [address], [address] [place] [address], [facility] MOLECULAR DIAGNOSTICS [facility] [address], [address] [place] [address], [facility] * Gynecologic Cytology (PAP) (01/28/2025 2:04 PM CDT) Interpretation Negative for Intraepithelial Lesion or Malignancy (NILM) 01/31/2025 2:04 PM CDT [facility] at 1404 CDT Comment Papanicolaou Test Limitations: Cervical cytology is a screening test with limited sensitivity, and regular screening is critical for cancer prevention. Pap tests are primarily effective for the diagnosis/prevent ion of squamous cell carcinoma, not adenocarcinoma or other cancers. 01/31/2025 2:04 PM CDT [facility] Specimen Adequacy Satisfactory for evaluation, endocerv/transfor mation zone component absent, atrophy 01/31/2025 2:04 PM CDT [facility] Clinical Information none 01/31/2025 2:04 PM CDT [facility] Previous Abnormal? Yes 01/31/2025 2:04 PM CDT [facility] Previous Abnormal Diagnosis colp 2021-scant sample but concern for CIN2, repeat colp august 2022 benign 01/31/2025 2:04 PM CDT [facility] Performing Labs The technical component of this testing was completed at [facility]. Stain controls for all stains resulted within this report have been reviewed and show appropriate reactivity. 01/31/2025 2:04 PM CDT [facility] Associated HPV Report Please see the associated HPV High Risk Types DNA Cervical report for Specimen [id number] from the same collection date. 01/31/2025 2:04 PM CDT [facility] Brushing ENDOCERVICAL STRUCTURE / Unknown Non-blood Collection / Unknown 01/28/2025 2:04 PM CDT 01/29/2025 11:19 AM CDT Carmela GALLAGHER Final Result [facility] Specialty Lab [address] [facility] [address], [address] [place] [address] * Dermatological Path Order and Indications (01/16/2025 10:33 AM CDT) Case Report Surgical Pathology Report Case: [id number] Authorizing Provider: Kera Gonzalez PA-C Collected: 01/16/2025 10:33 AM Ordering Location: [facility] Received: 01/16/2025 10:48 AM Peggy Montero Pathologist: Maria De Jesus Sadler MD Specimen: Skin, right jawline, chin 01/22/2025 3:55 PM CDT [facility] Final Diagnosis A. Right jawline, chin: - Actinic keratosis and milium - (see description) 01/22/2025 3:55 PM CDT [facility] at 1555 CDT Clinical Information The patient is a 54 year old female. 01/22/2025 3:55 PM CDT [facility] Gross Description A(1). Skin, right jawline, chin: The specimen is received in formalin with proper patient identification, labeled right jawline, right chin. The specimen consists of a 0.6 x 0.4 cm irregular skin shave. The epidermis displays a 0.4 x 0.4 cm ill-defined, bennett-white lesion. The resection margin is inked blue, the specimen is bisected, and submitted entirely in cassette A1. 01/22/2025 3:55 PM CDT [facility] Microscopic Description The specimen exhibits a superficial dilated and plugged follicular infundibulum arising on facial skin, with the base transected. Additionally, there is mild epidermal hyperplasia with mild keratinocyte atypia accentuated in its lower half. Deeper levels were reviewed. 01/22/2025 3:55 PM CDT SPECIALTY LABS Performing Labs The technical component of this testing was completed at [facility]. Stain controls for all stains resulted within this report have been reviewed and show appropriate reactivity. 01/22/2025 3:55 PM CDT [facility] Skin - Shave SPECIMEN FROM SKIN / Unknown 01/16/2025 10:33 AM CDT 01/16/2025 10:48 AM CDT us Kera COLBY AP Final Resu lt SPECIALTY LABS [facility] [address] [facility], [address] [address] Core Lab [facility], [address] [phone] * COLONOSCOPY (08/23/2024 8:59 AM OUTSOLE BEVELER) COLONOSCOPY [facility] Patient Name: Lewis Pickett Procedure Date: 08/23/2024 8:59 AM Date of : 1970 Admit Type: Outpatient Age: 53 Gender: Female Attending MD: JAYESH SAUCEDA MD, Total Sedation Time: 28_minutes continuous bedside 1:1 Instrument Name: [id number] Adult Colonoscope Procedure: Colonoscopy Indications: Screening for colorectal malignant neoplasm Providers: JAYESH SAUCEDA MD (Doctor) Referring MD: AWILDA MAN (Referring MD) Medicines: Midazolam 3 mg IV, Fentanyl 150 micrograms IV Complications: No immediate complications. Procedure: Pre-Anesthesia Assessment: - Prior to the procedure, a History and Physical was performed, and patient medications and allergies were reviewed. The patient is competent. The risks and benefits of the procedure and the sedation options and risks were discussed with the patient. All questions were answered and informed consent was obtained. Patient identification and proposed procedure were verified in the pre-procedure area. Mental Status Examination: alert and oriented. Airway Examination: normal oropharyngeal airway and neck mobility. Respiratory Examination: clear to auscultation. CV Examination: normal. Prophylactic Antibiotics: The patient does not require prophylactic antibiotics. Prior Anticoagulants: The patient has taken no anticoagulant or antiplatelet agents. ASA Grade Assessment: II - A patient with mild systemic disease. After reviewing the risks and benefits, the patient was deemed in satisfactory condition to undergo the procedure. The anesthesia plan was to use moderate sedation / analgesia (conscious sedation). Immediately prior to administration of medications, the patient was re-assessed for adequacy to receive sedatives. The heart rate, respiratory rate, oxygen saturations, blood pressure, adequacy of pulmonary ventilation, and response to care were monitored throughout the procedure. The physical status of the patient was re-assessed after the procedure. After obtaining informed consent, the colonoscope was passed under direct vision. Throughout the procedure, the patient's blood pressure, pulse, and oxygen saturations were monitored continuously. The Olympus Colonovideoscope, Model# [id number], Censitrac# [id number], SN# [id number] was introduced through the anus and advanced to the terminal ileum, with identification of the appendiceal orifice and IC valve. The colonoscopy was performed without difficulty. The patient tolerated the procedure well. The quality of the bowel preparation was good. The terminal ileum, ileocecal valve, appendiceal orifice, and rectum were photographed. Findings: The perianal and digital rectal examinations were normal. A few small-mouthed diverticula were found in the sigmoid colon. The terminal ileum appeared normal. The exam was otherwise without abnormality on direct and retroflexion views. Impression: - Diverticulosis in the sigmoid colon. - The examined portion of the ileum was normal. - The examination was otherwise normal on direct and retroflexion views. - No specimens collected. Recommendation: - Repeat colonoscopy in 10 years for screening purposes. Procedure Code(s): --- Professional --- G0121, Colorectal cancer screening; colonoscopy on individual not meeting criteria for high risk Diagnosis Code(s): --- Professional --- Z12.11, Encounter for screening for malignant neoplasm of colon CPT copyright 2021 [employer]. All rights reserved. The codes documented in this report are preliminary and upon technical clerk review may be revised to meet current compliance requirements. Electronically signed by Jayesh Sauceda MD __ JAYESH SAUCEDA MD 08/23/2024 9:56:23 AM I was physically present for the entire viewing portion of the exam. JAYESH SAUCEDA MD Number of Addenda: 0 Note Initiated On: 08/23/2024 8:59 AM Procedure Date: 08/23/2024 8:59:09 AM Scope Withdrawal Time: 0 hours 7 minutes 41 seconds Total Procedure Duration: 0 hours 26 minutes 19 seconds Estimated Blood Loss: Scope In: 9:08:25 AM Scope Out: 9:34:44 AM RADIOLOGY RESULTS 08/23/2024 8:59 AM OUTSOLE BEVELER Carmela Palmer PA-C PROCEDURES Final Result RADIOLOGY RESULTS * MA Screening Bilateral w/ Shan (08/16/2024 10:35 AM OUTSOLE BEVELER) Anatomical Region Laterality Modality Breast Bilateral Mammography Impressions 08/19/2024 7:19 AM OUTSOLE BEVELER IMPRESSION: ACR BI-RADS Category 1: Negative BREAST CANCER SCREENING RECOMMENDATION: Routine yearly mammography beginning at age 40 or as discussed with your provider. The results and recommendations of this examination will be communicated to the patient. Onel Blank MD Narrative 08/19/2024 7:19 AM OUTSOLE BEVELER BILATERAL FULL FIELD DIGITAL SCREENING MAMMOGRAM WITH TOMOSYNTHESIS Performed on: 08/16/24 Compared to: 06/14/2023 and 08/18/2020 Technique: This study was evaluated with the assistance of Computer-Aided Detection. Breast Tomosynthesis was used in interpretation. Findings: The breasts are heterogeneously dense, which may obscure small masses. There is no radiographic evidence of malignancy. Carmela Palmer PA-C IMG MAMMOGRAPHY ORDERABLES Fin al Result * Hepatitis C Screen Reflex to HCV RNA Quant and Genotype (06/02/2023 10:40 AM CDT) Hepatitis C Antibody Nonreactive Nonreactive 06/03/2023 2:26 PM CDT UM SPECIALTY CORE/PROT/EN DO Blood STRUCTURE OF LEFT UPPER LIMB / Unknown Venipuncture / Unknown 06/02/2023 10:40 AM CDT 06/02/2023 10:40 AM CDT Narrative UM SPECIALTY CORE/PROT/ENDO - 06/03/2023 2:26 PM CDT Assay performance characteristics have not been established for newborns, infants, and children. Leeanen Pickard APRN CABINET AND TRIM INSTALLER LAB - BLOOD ORDERABLES F inal Result UM SPECIALTY CORE/PROT/ENDO UM Specialty Core/Prot/Endo [address] [facility] [address], [address] [place] [address], [facility] [phone] * HIV Antigen Antibody Combo - BMT recipient (08/25/2021 10:59 AM OUTSOLE BEVELER) HIV Antigen Antibody Combo Nonreactive Nonreactive 08/25/2021 8:06 PM OUTSOLE BEVELER UM SPECIALTY PROT/ENDO/SP CORE LABORATORY Comment:HIV-1 p24 Ag & HIV-1 /HIV-2 Ab Not Detected Blood VENOUS LINE / Unknown VAD(CVC, PICC) / Unknown 08/25/2021 10:59 AM OUTSOLE BEVELER 08/25/2021 11:22 AM OUTSOLE BEVELER us Yogesh Peraza MD LAB - BLOOD ORDERABLES Final R esult SPECIALTY PROT/ENDO/SP CORE LABORATORY [facility] Specialty Core Lab [address] [facility], [address] [place] [address], [place] [phone] from Last 3 Months or Most Recently Relevant to Health Maintenance Insurance [address] [place] [id number] [facility] CHO[facility] [address] [place] [id number] [place] [address] [facility] [address] [place] [id number] [place] [address] [facility] CHO[facility] Advance Directives For more information, please contact: [phone] * Full Code (Latest Code Status on File) Date Activated Date Inactivated Comments 01/10/2022 3:55 AM 01/11/2022 2:47 PM All basic and advanced life-sustaining interventions are performed as appropriate Question Answer Comments Code status determined by: Unable to dis cuss and no AD/POLST on file; continue PREVIOUSLY ORDERED code status * Full Code Date Activated Date Inactivated Comments 09/08/2021 1:09 PM 10/07/2021 2:41 PM All basic a nd advanced life-sustaining interventions are performed as appropriate Question Answer Comments Code status determined by: Other (please jordanan t) Care Teams Evs Tech Relationship Specialty Start Date End Date Carmela Palmer PA-C [address] [place] [phone] PCP - General Family Medicine 12/13/23 Yogesh Lynch [address] [place] [address] 476576 Referring Physician Medical Oncology 07/22/21 [place] [address] [place] [address] 660306 BMT Physician Transplant 08/25/21 Yogesh Peraza MD [address] [place] [address] [phone] Assigned Cancer Care Provider 10/24/21 Anyi Ha MD [address] [place], [place] 681107 Assigned OBGYN Provider 03/19/22 Valdemar Thompson MD [address] [phone] [place], [place] 467075 Cardiovascular Disease 07/27/22 Jenni Camacho APRN CABINET AND TRIM INSTALLER [address] [place] [address] [phone] Nurse Practitioner Hematology & Oncology 09/16/22 [place] [address] [place] [address] Hematology 06/21/23 Yogesh Peraza MD [address] [place], [place] 422726 Hematology 06/21/23 Wendy Francis MD [address] [place] [address] 158235 Physical Medicine and Rehabilitation 08/28/23 Noemi Calle, RN BMT Nurse Coordinator Transplant 11/20/23 Wendy Francis MD [address] [place] [address] 545245 Assigned Neuroscience Provider 11/24/23 Ishmael Austin MD [address] [place] [address] [phone] Dermatology 12/15/23 Carmela Palmer, PALavelleC [address] [place] [phone] Assigned PCP 01/02/24 Romie Smith, PhD [address] [place] [phone] Assigned Behavioral Health Provider 06/03/24 Valdemar Thompson MD [address] [facility] [address] [place], [place] 8[address]45 Assigned Heart and Vascular Provider 07/03/24 Kera Gonzalez PA-C Dermatology [address] [place] [address] [phone] Physician Wood Turning Lathe Operator Dermatology 11/08/24 Kera Gonzalez PA-C Dermatology [address] [place] [address] Assigned Dermatology Provider 01/31/25
--- OUTSIDE RECORDS SUMMARY | 2025-04-06 21:32 | XMS_ITS | Encounter Summary ---
Author Organization [place] Address [facility] [place] [address] Care Team Providers Care Golf Course Superintendent Name Role Phone Larrymarychuy Yogesh Unavailable Yogesh Peraza MD Unavailable [phone] Tracy Covarrubias [facility] Unavailable Yogesh Peraza MD Unavailable [phone] Leeanne Pickard APRN DOWEL STICKER OPERATOR Unavailable [phone] Anyi Ha MD Unavailable [phone] Leeanne Pickard APRN DOWEL STICKER OPERATOR Primary Care Provider + Valdemar Thompson MD Unavailable Valdemar Thompson MD Unavailable Galo Yun RN Unavailable [phone] Jenni Camacho REIMBURSEMENT CONSULTANT DOWEL STICKER OPERATOR Unavailable [facility] Center[facility] andrade RN Unavailable Unavailable Isaac Hennessy PA-C Unavailable [phone] Yogesh Peraza MD Unavailable +[phone] Yogesh Peraza MD Unavailable [phone] Wendy Francis MD Unavailable [phone] [facility] Unavail able Noemi Calle RN Unavailable Unavailable Wendy Francis MD Unavailable Carmela Palmer PA-C Primary Care Provider Ishmael Austin MD Unavailable Carmela Palmer PA-C Unavailable [phone] CannonRomie perez PhD Unavailable [phone] Valdemar Thompson MD Unavailable Kera Gonzalez PA-C Unavailable [phone] Kera Gonzalez PA-C Unavailable [phone] Encounter Details Date Type Department Care Team (Late st Contact Info) Description 11/25/[address] [facility] Blood and Marrow Transplant Program [address] [address] Yogesh Peraza MD [address] [place] [address] Social History Tobacco Use Types Packs/Day [...] on file Legal Sex Female 4:09 AM R DEVELOPER Gender Identity Not on file Sexual Orientation Not on file COVID-19 Exposure Response Date Recorded In the last 10 days, have yo u been in contact with someone who was confirmed or suspected to have Coronavirus/COVID-19? No / Unsure 11/25/2022 10:52 AM CDT documented as of this encounter Plan of Treatment Not on file documented as of this encounter Visit Diagnoses Not on filedocumented in this encounter Additional Health Concerns Infection Onset Date Last Indicated Resolved Time Rule Out Pertussis 01/15/2023 01/17/2023 8:11 AM CDT Rule Out COVID-19 01/17/2023 01/17/2023 02/07/2023 11:39 PM CDT documented as of this encounter Care Teams Golf Course Superintendent Relationship Specialty Start Date End Date Leeanne Pickard APRN CNP PCP - General Family Medicine 07/27/22 11/09/23 Carmela Palmer PA-C [address] [place] [phone] PCP - General Family Medicine 12/13/23 Yogesh Lynch [address] [place] [address] 012386 Referring Physician Medical Oncology 07/22/21 Yogesh Peraza MD [address] [place] [address] BMT Physician Transplant 08/25/21 Tracy Covarrubias, [facility] Mid Level Java Developer BMT - Adult 08/30/21 06/15/24 [place] [address] [place] [address] 193166 Assigned Cancer Care Provider 2/13/22 Leeanne Pickard APRN DOWEL STICKER OPERATOR Assigned PCP 12/10/21 10/04/23 Anyi Ha MD [address] [place] [address] Assigned OBGYN Provider 03/19/22 Valdemar Thompson MD [address] [phone] [place], [place] 06[address] Cardiovascular Disease 07/27/22 Valdemar Thompson MD [address] [phone] [place], [place] 920135 Assigned Heart and Vascular Provider 08/06/22 05/19/23 Galo Yun RN Specialty Product Promoter Sales Person BMT - Adult 09/16/22 06/06/23 Jenni Camacho APRN DOWEL STICKER OPERATOR [address] [place] [address] Nurse Practitioner Hematology & Oncology 09/16/22 Mario Tsang RN BMT Nurse Coordinator Transplant 06/07/23 11/19/23 Isaac Hennessy, PALavelleC [address] [place] [address] Assigned Heart and Vascular Provider 05/20/23 07/02/24 Yogesh Peraza MD [address] [place] [address] Hematology 06/21/23 Yogesh Peraza MD [address] [place] [address] Hematology 06/21/23 Wendy Francis MD [address] [place] [address] Physical Medicine and Rehabilitation 08/28/23 [facility] [address] [place] [address] Assigned PCP 10/05/23 01/01/24 Noemi Calle, DEANGELO BMT Nurse Coordinator Transplant 11/20/23 Wendy Francis MD [address] [place] [address] [phone] Assigned Neuroscience Provider 11/24/23 Ishmael Austin MD [address] [place] [address] 511085 Dermatology 12/15/23 Carmela Palmer PA-C [address] [place] [address] Assigned PCP 01/02/24 Romie Smith, PhD [address] [place] [phone] Assigned Behavioral Health Provider 06/03/24 Valdemar Thompson MD [address] [facility] [address] [place] [address] Assigned Heart and Vascular Provider 07/03/24 Kera Gonzalez PA-C Dermatology [address] [place] [address] Physician Material Damage Adjuster Dermatology 11/08/24 Kera Gonzalez PA-C Dermatology [address] [place] [address] Assigned Dermatology Provider 01/31/25 documented as of this encounter
--- OUTSIDE RECORDS SUMMARY | 2025-04-06 21:32 | XMS_ITS ---
Author Organization [place] Address [facility] [place] [address] Care Team Providers Care Hospital Cook Name Role Phone Larrymarychuy Yogesh Unavailable Yogesh Peraza MD Unavailable [phone] Yogesh Peraza MD Unavailable [phone] Anyi Ha MD Unavailable [phone] Valdemar Thompson MD Unavailable Jenni Camacho APRN CHIEF DISPATCHER SERVICE Unavailable Yogesh Peraza MD Unavailable +[phone] Yogesh Peraza MD Unavailable [phone] Wendy Francis MD Unavailable [phone] Noemi Calle RN Unavailable Unavailable Wendy Francis MD Unavailable [phone] Carmela Palmer PA-C Primary Care Provider + [phone] Ishmael Austin MD Unavailable Carmela Palmer PA-C Unavailable Romie Smith PhD Unavailable [phone] Valdemar Thompson MD Unavailable Kera Gonzalez PA-C Unavailable [phone] Kera Gonzalez PA-C Unavailable [phone] Active Problems Patient Care Coordination No te Formatting of this note migh t be different from the original. [employer]: [facility] [phone] for line care supplies Referral made for line care: Yes IV medications needed at discharge: None Pharmacy concerns: None PT/OT/therapies recommended: No Referral made for PT/OT/therapies: NA D/c location: Home - [place] Has placement need been communicated to Social Work? NA NC Teaching time arranged with patient/caregiver: Completed 10/05, via conference call with pt and Notify nurse to schedule line care class/ DM teaching, prior to d/c: Line care class completed 10/05 Caregiver: Cruz () [phone] Lizz Pickett 09/17/21: Faxed disability paperwork to [facility] for pt (reflecting minimum 6mo leave from work) - see separate note Long-term BMT MD: Yogesh Peraza Long-term BMT NC: Galo Yun BMT Typewriter Assembler: Nereida Covarrubias Problem Noted Date Diagnosed Date [...] her in within the right time frame. [place] due 07/12/22 07/12/22 [place] ECC: scant sample, suggesting RIGO 2. Plan [...] remission 09/08/2021 ALL (acute lymphocytic leukemia) 08/23/2021 Current Treatment and Therapy Plans No current plan information found. Past Treatment and Therapy Plans BLOOD PRODUCTS Plan Name Start Date Discontinue Date Treatment Medications Discontinue Reason Plan Provider BMT RED BLOOD CELLS AND PLATELETS - CONDITIONAL / RECURRING - ADULT 10/07/2021 09/28/2023 No medications scheduled. Therapy Complete Yogesh Peraza MD BMT THERAPY PLAN Plan Name Start Date Discontinue Date Treatment Medications Discontinue Reason Plan Provider BMT STANDARD THERAPY PLAN - ADULT 10/08/2021 12/21/2022 No medications scheduled. 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
--- OUTSIDE RECORDS SUMMARY | 2025-04-06 21:32 | XMS_ITS | Encounter Summary ---
Author Organization [place] Address [facility] [place] [address] Care Team Providers Care Math Specialist Name Role Phone Larrymarychuy Yogesh Unavailable Yogesh Peraza MD Unavailable [phone] Tracy Covarrubias [facility] Unavailable Yogesh Peraza MD Unavailable +[phone] Leeanne Pickard APRN BRASSIERE CUP MOLD CUTTER Unavailable [phone] Anyi Ha MD Unavailable [phone] Leeanne Pickard APRN BRASSIERE CUP MOLD CUTTER Primary Care Provider + Valdemar Thompson MD Unavailable Valdemar Thompson MD Unavailable Galo Yun RN Unavailable [phone] Jenni Camacho ALL SOURCE COLLECTION MANAGER BRASSIERE CUP MOLD CUTTER Unavailable [facility] and[facility] RN Unavailable Unavailable Isaac Hennessy PA-C Unavailable [phone] Yogesh Peraza MD Unavailable +[phone] Yogesh Peraza MD Unavailable [phone] Wendy Francis MD Unavailable [phone] [facility] Unavail able Noemi Calle RN Unavailable Unavailable Wendy Francis MD Unavailable [phone] Carmela Palmer PA-C Primary Care Provider Ishmael Austin MD Unavailable Carmela Palmer PA-C Unavailable [phone] StephensonRomie perez PhD Unavailable [phone] Valdemar Thompson MD Unavailable Kera Gonzalez PA-C Unavailable [phone] Kera Gonzalez PA-C Unavailable [phone] Encounter Details Date Type Department Care Team (Late st Contact Info) Description 12/07/2022 [facility] [address] [place] [phone] Tasneem Bee Social History Tobacco Use [...] on file Legal Sex Female 4:09 AM CARROTER Gender Identity Not on file Sexual Orientation Not on file COVID-19 Exposure Response Date Recorded In the last 10 days, have yo u been in contact with someone who was confirmed or suspected to have Coronavirus/COVID-19? No / Unsure 12/09/2022 8:55 AM CDT documented as of this encounter Plan of Treatment Not on file documented as of this encounter Visit Diagnoses Not on filedocumented in this encounter Additional Health Concerns Infection Onset Date Last Indicated Resolved Time Rule Out Pertussis 01/15/2023 01/17/2023 8:11 AM CDT Rule Out COVID-19 01/17/2023 01/17/2023 02/07/2023 11:39 PM CDT documented as of this encounter Care Teams Math Specialist Relationship Specialty Start Date End Date Leeanne Pickard APRN BRASSIERE CUP MOLD CUTTER PCP - General Family Medicine 07/27/22 11/09/23 Carmela Palmer PA-C [address] [place] [phone] PCP - General Family Medicine 12/13/23 Yogesh Lynch [address] [place] [address] 654976 Referring Physician Medical Oncology 07/22/21 Yogesh Peraza MD [address] [place] [address] 686506 BMT Physician Transplant 08/25/21 Tracy Covarrubias, [facility] Geology Teacher BMT - Adult 08/30/21 06/15/24 Yogesh Peraza MD [facility] [place] [address] Assigned Cancer Care Provider 10/24/21 Leeanne Pickard APRN BRASSIERE CUP MOLD CUTTER Assigned PCP 12/10/21 10/04/23 Anyi Ha MD [address] [place] [address] Assigned OBGYN Provider 03/19/22 Valdemar Thompson MD [address] [phone] [place] [phone] Cardiovascular Disease 07/27/22 Valdemar Thompson MD [address] [facility] [address] [place] [address]25 Assigned Heart and Vascular Provider 08/06/22 05/19/23 Galo Yun RN Specialty Mosaic Technician BMT - Adult 09/16/22 06/06/23 Jenni Camacho APRN CNP [address] [place] [address] 518125 Nurse Practitioner Hematology & Oncology 09/16/[address] [facility] RN BMT Nurse Coordinator Transplant 06/07/23 11/19/23 Isaac Hennessy, PALavelleC [address] [place], [place] 191565 Assigned Heart and Vascular Provider 05/20/23 07/02/24 Yogesh Peraza MD [address] [place], [place] 742486 Hematology 06/21/23 Yogesh Peraza MD [address] [place], [place] 647506 Hematology 06/21/23 Wendy Francis MD [address] [place] [address]663 Physical Medicine and Rehabilitation 08/28/23 [facility] [address] [place], [place] [phone] Assigned PCP 10/05/23 01/01/24 Noemi Calle, RN BMT Nurse Coordinator Transplant 11/20/23 Wendy Francis MD [address] [place] [address] 039035 Assigned Neuroscience Provider 11/24/23 Ishmael Austin MD [address] [place] [address] 852005 Dermatology 12/15/23 Carmela Palmer PALavelleC [address] [place] [phone] Assigned PCP 01/02/24 Romie Smith, PhD [address] [place] [phone] Assigned Behavioral Health Provider 06/03/24 Valdemar Thompson MD [address] [facility] [address] [place], [place] 137185 Assigned Heart and Vascular Provider 07/03/24 Kera Gonzalez PA-C Dermatology [address] [place] [address] [phone] Physician Railroad Track Repair Supervisor Dermatology 2/28/25 Kera Gonzalez PA-C Dermatology [address] [place] [address] [phone] Assigned Dermatology Provider 01/31/25 documented as of this encounter
--- OUTSIDE RECORDS SUMMARY | 2025-04-06 21:32 | XMS_ITS | Encounter Summary ---
Author Organization [place] Address [facility]0 [facility] [place] [address] Care Team Providers Care Drug Regulatory Affairs Specialist Name Role Phone Larrymarychuy Yogesh Unavailable Yogesh Peraza MD Unavailable [phone] Tracy Covarrubias [facility] Unavailable Yogesh Peraza MD Unavailable +[phone] Leeanne Pickard APRN DISTANCE EDUCATION TEACHER Unavailable [phone] Anyi Ha MD Unavailable [phone] Leeanne Pickard APRN DISTANCE EDUCATION TEACHER Primary Care Provider + Valdemar Thompson MD Unavailable Valdemar Thompson MD Unavailable Galo Yun RN Unavailable [phone] Jenni Camacho EMERGENCY MANAGEMENT SPECIALIST DISTANCE EDUCATION TEACHER Unavailable [facility] RN Unavailable Unavailable Isaac Hennessy PA-C Unavailable [phone] Yogesh Peraza MD Unavailable +[phone] Yogesh Peraza MD Unavailable +[phone] Wendy Francis MD Unavailable [phone] [facility] Unavail able Noemi Calle RN Unavailable Unavailable Wendy Francis MD Unavailable [phone] Carmela Palmer PA-C Primary Care Provider [phone] Ishmael Austin MD Unavailable Carmela Palmer PA-C Unavailable MilwaukeeRomie perez PhD Unavailable [phone] Valdemar Thompson MD Unavailable Kera Gonzalez PA-C Unavailable [phone] Kera Gonzalez PA-C Unavailable [phone] Encounter Details Date Type Department Care Team (Late st Contact Info) Description 11/10/2022 MyC Medical Advice [facility] Blood and Marrow Transplant Program [address] [address] Yogesh Peraza MD [address] [place] [address] Social History Tobacco Use Types Packs/Day [...] on file Legal Sex Female 4:09 AM NAVY MATERIAL INSPECTOR Gender Identity Not on file Sexual Orientation Not on file COVID-19 Exposure Response Date Recorded In the last 10 days, have yo u been in contact with someone who was confirmed or suspected to have Coronavirus/COVID-19? No / Unsure 11/10/2022 8:42 AM NAVY MATERIAL INSPECTOR documented as of this encounter Plan of Treatment Not on file documented as of this encounter Visit Diagnoses Not on filedocumented in this encounter Additional Health Concerns Infection Onset Date Last Indicated Resolved Time Rule Out Pertussis 01/15/2023 01/17/2023 8:11 AM CDT Rule Out COVID-19 01/17/2023 01/17/2023 02/07/2023 11:39 PM CDT documented as of this encounter Care Teams Drug Regulatory Affairs Specialist Relationship Specialty Start Date End Date Leeanne Pickard APRN CNP PCP - General Family Medicine 07/27/22 11/09/23 Carmela Palmer PA-C [address] [place] [phone] PCP - General Family Medicine 12/13/23 Yogesh Lynch [address] [place] [address] 932296 Referring Physician Medical Oncology 07/22/21 Yogesh Peraza MD [address] [place] [address] BMT Physician Transplant 08/25/21 Tracy Covarrubias, [facility] Hospital Ward Clerk BMT - Adult 08/30/21 06/15/24 [place] [address] [place] [address] 380646 Assigned Cancer Care Provider 10/24/21 Leeanne Pickard APRN DISTANCE EDUCATION TEACHER Assigned PCP 12/10/21 10/04/23 Anyi Ha MD [address] [place] [address] Assigned OBGYN Provider 03/19/22 Valdemar Thompson MD [address] [phone] [place], [place] 691195 Cardiovascular Disease 07/27/22 Valdemar Thompson MD [address] [phone] [place], [place] 670985 Assigned Heart and Vascular Provider 08/06/22 05/19/23 Galo Yun, DEANGELO Specialty Torque Tester BMT - Adult 09/16/22 06/06/23 Jenni Camacho APRN DISTANCE EDUCATION TEACHER [address] [place] [address] Nurse Practitioner Hematology & Oncology 09/16/22 Mario Tsang RN BMT Nurse Coordinator Transplant 06/07/23 11/19/23 Isaac Hennessy, PALavelleC [address] [place], [place] 039115 Assigned Heart and Vascular Provider 05/20/23 07/02/24 Yogesh Peraza MD [address] [place] [address] Hematology 06/21/23 Yogesh Peraza MD [address] [place] [address] Hematology 06/21/23 Wendy Francis MD [address] [place] [address] Physical Medicine and Rehabilitation 08/28/23 [facility] [address] [place] [address] Assigned PCP 10/05/23 01/01/24 Noemi Calle, DEANGELO BMT Nurse Coordinator Transplant 11/20/23 Wendy Francis MD [address] [place] [address] 126135 Assigned Neuroscience Provider 11/24/23 Ishmael Austin MD [address] [place] [address] Dermatology 12/15/23 Carmela Palmer PA-C [address] [place] [address] Assigned PCP 01/02/24 Romie Smith, PhD [address] [place] [phone] Assigned Behavioral Health Provider 06/03/24 Valdemar Thompson MD [address] [address] Assigned Heart and Vascular Provider 07/03/24 Kera Gonzalez PA-C Dermatology [address] [place] [address] Physician Sfdc Architect Dermatology 11/08/24 Kera Gonzalez PA-C Dermatology [address] [place] [address] Assigned Dermatology Provider 01/31/25 documented as of this encounter
--- OUTSIDE RECORDS SUMMARY | 2025-04-06 21:32 | XMS_ITS | Encounter Summary ---
Author Organization [place] Address [facility] [place] [address] Care Team Providers Care Director Of Dance Name Role Phone Larrymarychuy Yogesh Unavailable Yogesh Peraza MD Unavailable [phone] Tracy Covarrubias [facility] Unavailable Yogesh Peraza MD Unavailable +[phone] Leeanne Pickard APRN FILM INSPECTOR Unavailable [phone] Anyi Ha MD Unavailable [phone] Leeanne Pickard APRN FILM INSPECTOR Primary Care Provider + Valdemar Thompson MD Unavailable Valdemar Thompson MD Unavailable Galo Yun RN Unavailable [phone] Jenni Camacho DIRECTOR MOTION PICTURE FILM INSPECTOR Unavailable [facility] RN Unavailable Unavailable Isaac Hennessy PA-C Unavailable [phone] Yogesh Peraza MD Unavailable +[phone] Yogesh Peraza MD Unavailable +[phone] Wendy Francis MD Unavailable [phone] [facility] Unavail able Noemi Calle RN Unavailable Unavailable Wendy Francis MD Unavailable [phone] Carmela Palmer PA-C Primary Care Provider Ishmael [place] MD Unavailable Carmela Palmer PA-C Unavailable [phone] DallasRomie perez PhD Unavailable [phone] Valdemar Thompson MD Unavailable Kera Gonzalez PA-C Unavailable [phone] Kera Gonzalez PA-C Unavailable [phone] Encounter Details Date Type Department Care Team (Late st Contact Info) Description 09/20/2022 MyC Medical Advice [facility] Blood and Marrow Transplant Program [address] [address] Yogesh Peraza MD [address] [place] [address] Social History Tobacco Use Types Packs/Day [...] on file Legal Sex Female 4:09 AM TRENCH DIGGER Gender Identity Not on file Sexual Orientation Not on file COVID-19 Exposure Response Date Recorded In the last 10 days, have yo u been in contact with someone who was confirmed or suspected to have Coronavirus/COVID-19? No / Unsure 09/21/2022 11:48 AM TRENCH DIGGER documented as of this encounter Plan of Treatment Not on file documented as of this encounter Visit Diagnoses Not on filedocumented in this encounter Additional Health Concerns Infection Onset Date Last Indicated Resolved Time Rule Out COVID-19 09/30/2022 09/30/2022 09/30/2022 10:10 PM TRENCH DIGGER Rule Out Pertussis 01/15/2023 01/17/2023 8:11 AM CDT Rule Out COVID-19 01/17/2023 01/17/2023 02/07/2023 11:39 PM CDT documented as of this encounter Care Teams Director Of Dance Relationship Specialty Start Date End Date Leeanne Pickard APRN CNP PCP - General Family Medicine 07/27/22 11/09/23 Carmela Palmer PA-C [address] [place] [phone] PCP - General Family Medicine 12/13/23 Yogesh Lynch [address] [place] [address] 244056 Referring Physician Medical Oncology 07/22/21 Yogesh Peraza MD [address] [place] [address] 899036 BMT Physician Transplant 08/25/21 Tracy Covarrubias, [facility] Paper Products Supervisor BMT - Adult 08/30/21 06/15/24 Yogesh Peraza MD [address] [place] [address] Assigned Cancer Care Provider 10/24/21 Leeanne Pickard APRN FILM INSPECTOR Assigned PCP 12/10/21 10/04/23 Anyi Ha MD [address] [facility] [place] [address] Assigned OBGYN Provider 03/19/22 Valdemar Thompson MD [address] [phone] [place], [place] [phone] Cardiovascular Disease 07/27/22 Valdemar Thompson MD [address] [phone] [place], [place] 228285 Assigned Heart and Vascular Provider 08/06/22 05/19/23 Galo Yun, DEANGELO Specialty Hand Winder BMT - Adult 09/16/22 06/06/23 Jenni Camacho APRN FILM INSPECTOR [address] [place] [address] 115135 Nurse Practitioner Hematology & Oncology 09/16/22 [facility] RN BMT Nurse Coordinator Transplant 06/07/23 11/19/23 Isaac Hennessy, PALavelleC [address] [place], [place] 340755 Assigned Heart and Vascular Provider 05/20/23 07/02/24 Yogesh Peraza MD [address] [place], [place] 105296 Hematology 06/21/23 Yogesh Peraza MD [address] [place], [place] 815376 Hematology 06/21/23 Wendy Francis MD [address] [place] [address] 662755 Physical Medicine and Rehabilitation 08/28/23 [facility] [address] [place], [place] [phone] Assigned PCP 10/05/23 01/01/24 Noemi Calle, RN BMT Nurse Coordinator Transplant 11/20/23 Wendy Francis MD [address] [place] [address] 570325 Assigned Neuroscience Provider 11/24/23 Ishmael Austin MD [address] [place] [address] 853855 Dermatology 12/15/23 Carmela Palmer, PA-C [address] [place] [phone] Assigned PCP 01/02/24 Romie Smith, PhD [address] [place] [phone] Assigned Behavioral Health Provider 06/03/24 Valdemar Thompson MD [address] [facility] [address] [place]ONE[place] 119265 Assigned Heart and Vascular Provider 07/03/24 Kera Gonzalez PA-C Dermatology [address] [place] [address] Physician Application Technician Dermatology 11/08/24 Kera Gonzalez PA-C Dermatology [address] [place] [address] Assigned Dermatology Provider 01/31/25 documented as of this encounter
--- OUTSIDE RECORDS SUMMARY | 2025-04-06 21:32 | XMS_ITS | Encounter Summary ---
Author Organization [place] Address [facility]0 [place] [address] Care Team Providers Care Printer Repair Technician Name Role Phone Larrymarychuy Yogesh Unavailable Yogesh Peraza MD Unavailable [phone] Yogesh Peraza MD Unavailable +[phone] Anyi Ha MD Unavailable [phone] Valdemar Thompson MD Unavailable + Jenni Camacho APRN STATISTICAL ASSISTANT Unavailable Isaac Hennessy PA-C Unavailable [phone] Yogesh Peraza MD Unavailable +[phone] Yogesh Peraza MD Unavailable [phone] Wendy Francis MD Unavailable [phone] Noemi Calle RN Unavailable Unavailable Wendy Francis MD Unavailable [phone] Carmela Palmer PA-C Primary Care Provider [phone] Ishmael Austin MD Unavailable Carmela Palmer PA-C Unavailable [phone] Romie Smith PhD Unavailable [phone] Valdemar Thompson MD Unavailable Kera Gonzalez PA-C Unavailable [phone] Kera GonzalezC Unavailable Encounter Details Date Type Department Care Team (Late st Contact Info) Description 06/17/2024 MyC Medical Advice [facility] [address] [facility] [address] [place] [address] Isaac Hennessy PA-C [address] [place], [place] 639495 Social History Tobacco Use Types Packs/Day Years [...] often do you attend chur ch or scientology services? Never 12/13/2023 Do you belong to any clubs o r organizations such as sabianist groups, unions, fraternal or athletic groups, or [...] Answer Date Recorded PHQ-2 Score 0 12/13/2023 [facility] [employer] of Occupat ional Health - Occupational Stress [...] Answer Date Recorded Do you have housing? ([place] g is defined as stable permanent housing [...] on file Legal Sex Female 4:09 AM ORNAMENTAL PAINTER Gender Identity Not on file Sexual Orientation Not on file documented as of this encounter Plan of Treatment Not on file documented as of this encounter Visit Diagnoses Not on filedocumented in this encounter Care Teams Printer Repair Technician Relationship Specialty Start Date End Date Carmela Palmer PA-C [address] [place] [phone] PCP - General Family Medicine 12/13/23 Yogesh Lynch [address] [place], [place] 437856 Referring Physician Medical Oncology 07/22/21 Yogesh Peraza MD [address] [place], [place] 564666 BMT Physician Transplant 08/25/21 Yogesh Peraza MD [address] [place], [place] 412766 Assigned Cancer Care Provider 10/24/21 Anyi Ha MD [address] [place], [place] 832207 Assigned OBGYN Provider 03/19/22 Valdemar Thompson MD [address] 550765 Cardiovascular Disease 07/27/22 Jenni Camacho APRN STATISTICAL ASSISTANT [address] [place] [address] 973345 Nurse Practitioner Hematology & Oncology 09/16/22 Isaac Hennessy PA-C [address] [place] [address] Assigned Heart and Vascular Provider 05/20/23 07/02/24 Yogesh Peraza MD [address] [place] [address] Hematology 06/21/23 Yogesh Peraza MD [address] [place] [address] Hematology 06/21/23 Wendy Francis MD [address] [place] [address] 914325 Physical Medicine and Rehabilitation 08/28/23 Noemi Calle, RN BMT Nurse Coordinator Transplant 11/20/23 Wendy Francis MD [address] [place] [address] 933035 Assigned Neuroscience Provider 11/24/23 Ishmael Austin MD [address] [place] [address] 916045 Dermatology 12/15/23 Carmela Palmer PALavelleC [address] [place] [phone] Assigned PCP 01/02/24 Romie Smith, PhD [address] [place] [phone] Assigned Behavioral Health Provider 06/03/24 Valdemar Thompson MD 6[address] [facility] [address] [place] [address] Assigned Heart and Vascular Provider 07/03/24 Kera Gonzalez PA-C Dermatology [address] [place] [address] Physician Frame Stylist Dermatology 11/08/24 Kera Gonzalez PA-C Dermatology [address] [place] [address] 116[address] Assigned Dermatology Provider 01/31/25 documented as of this encounter
--- OUTSIDE RECORDS SUMMARY | 2025-04-06 21:32 | XMS_ITS | Encounter Summary ---
Author Organization [place] Address [facility] [place] [address] Care Team Providers Care High School Counselor Name Role Phone Larrymarychuy Yogesh Unavailable Yogesh Peraza MD Unavailable [phone] Tracy Covarrubias [facility] Unavailable Yogesh Peraza MD Unavailable +[phone] Leeanne Pickard APRN AUTO WASH BUFFER Unavailable [phone] Anyi Ha MD Unavailable [phone] Leeanne Pickard APRN AUTO WASH BUFFER Primary Care Provider + Valdemar Thompson MD Unavailable Valdemar Thompson MD Unavailable Galo Yun RN Unavailable [phone] Jenni Camacho PATROL OFFICER AUTO WASH BUFFER Unavailable [facility] and[facility] RN Unavailable Unavailable Isaac Hennessy PA-C Unavailable [phone] Yogesh Peraza MD Unavailable +[phone] Yogesh Peraza MD Unavailable +[phone] Wendy Francis MD Unavailable [phone] [facility] Unavail able Noemi Calle RN Unavailable Unavailable Wendy Francis MD Unavailable Carmela Palmer PA-C Primary Care Provider Ishmael Austin MD Unavailable Carmela Palmer PA-C Unavailable [phone] [place] Romie PhD Unavailable [phone] Valdemar Thompson MD Unavailable Kera Gonzalez PA-C Unavailable [phone] Kera Gonzalez PA-C Unavailable [phone] Reason for Visit * Reason Onset Date Comments MyChart Communication 12/07/2022 Encounter Details Date Type Department Care Team (Latest Contact Info) Description 12/07/2022 [facility] Blood and Marrow Transplant Program [address] [address] Yogesh Peraza MD [address] [place] [address] MyChart Communication (/) Social History Tobacco Use Types Packs/Day Years [...] on file Legal Sex Female 4:09 AM ADOBE FLEX DEVELOPER Gender Identity Not on file Sexual Orientation Not on file COVID-19 Exposure Response Date Recorded In the last 10 days, have yo u been in contact with someone who was confirmed or suspected to have Coronavirus/COVID-19? No / Unsure 12/09/2022 8:55 AM CDT documented as of this encounter Miscellaneous Notes * Telephone Encounter - Jil Pike RN - 12/09/2022 9:12 AM CDT Pt arrived arrived to clinic for immunizations, no active orders in pt chart. RN reviewed pt chart and encounter 12/07/22 does state to start immunizations but does not state which ones pt should be getting. Pt gave RN number to speak with DEANGELO Rosenthal, with Dr. Peraza. Spoke with DEANGELO Rosenthal, statesit is listed under therapy tab which automobile service writer does not have access to and cannot view. DEANGELO Rosenthal, went into today's MA encounter to place orders in MAR for MA to see. We were able to administer Shingles and Prevnar 13 today in clinic, [place] has the ACTHIB. No clinic near us has the Pediarix vaccine. Our clinics do have [facility] which has DTAP, HIB and HEP B but the age is from 6 weeks - 4yo. [facility] [id number]. Will route to provider and RN to review and advise, appropriate to change order, pleaseallow it to be in the MAR so we can see it here and document. Pt was made aware of the situation and would like oncology to reach out to pt with plan of care. Jil Bird RN documented in this encounter Plan of Treatment Not on file documented as of this encounter Visit Diagnoses Not on filedocumented in this encounter Additional Health Concerns Infection Onset Date Last Indicated Resolved Time Rule Out Pertussis 01/15/2023 01/17/2023 8:11 AM CDT Rule Out COVID-19 01/17/2023 01/17/2023 02/07/2023 11:39 PM CDT documented as of this encounter Care Teams High School Counselor Relationship Specialty Start Date End Date Leeanne Pickard APRN AUTO WASH BUFFER PCP - General Family Medicine 07/27/22 11/09/23 Carmela Palmer PA-C [address] [place] [address] PCP - General Family Medicine 12/13/23 Yogesh Lynch [address] [place], [place] 895606 Referring Physician Medical Oncology 07/22/21 Yogesh Peraza MD [facility] [place], [place] 691126 BMT Physician Transplant 08/25/21 Tracy Covarrubias, [facility] Integrated Logistics Programs Director BMT - Adult 08/30/21 06/15/24 Yogesh Peraza MD [address] [place], [place] 505086 Assigned Cancer Care Provider 10/24/21 Leeanne Pickard APRN AUTO WASH BUFFER Assigned PCP 12/10/21 10/04/23 Anyi Ha MD [address] [place], [place] 514807 Assigned OBGYN Provider 03/19/22 Valdemar Thompson MD [address] [facility] [address] [place]ONE[place] 254985 Cardiovascular Disease 07/27/22 Valdemar Thompson MD [address] [address] Assigned Heart and Vascular Provider 08/06/22 05/19/23 Galo Yun, DEANGELO Specialty Manager Of Medical BMT - Adult 09/16/22 06/06/23 Jenni Camacho APRN AUTO WASH BUFFER [address] [place] [address] 168375 Nurse Practitioner Hematology & Oncology 09/16/22 [facility] BMT Nurse Coordinator Transplant 06/07/23 11/19/23 Isaac Hennessy PA-C [address]405 [place] [address] Assigned Heart and Vascular Provider 05/20/23 07/02/24 [place] [address] [place] [address] Hematology 06/21/23 [place] [address] [place] [address] Hematology 06/21/23 Wendy Francis MD [address] [place], [place] 833285 Physical Medicine and Rehabilitation 08/28/23 [facility] [address] [place] [address] Assigned PCP 10/05/23 01/01/24 Noemi Calle, RN BMT Nurse Coordinator Transplant 11/20/23 Wendy Francis MD [address] [place], [place] 446405 Assigned Neuroscience Provider 11/24/23 Ishmael Austin MD [address] [place] [address] 005025 Dermatology 12/15/23 Carmela Palmer PA-C [address] [place] [phone] Assigned PCP 01/02/24 Romie Smith, PhD [address] [place] [phone] Assigned Behavioral Health Provider 06/03/24 Valdemar Thompson MD [address] [phone] Assigned Heart and Vascular Provider 07/03/24 Kera Gonzalez, PA-C [facility] [address] [place] [address]89 Physician Cloth Shrinking Supervisor Dermatology 11/08/24 Kera Gonzalez, PA-C [facility] [address] [place] [address] Assigned Dermatology Provider 01/31/25 documented as of this encounter
--- OUTSIDE RECORDS SUMMARY | 2025-04-06 21:32 | XMS_ITS | Encounter Summary ---
Author Organization [place] Address [facility]0 [facility] [place] [address] Care Team Providers Care Rubber Attacher Name Role Phone Larrymarychuy Yogesh Unavailable Yogesh Peraza MD Unavailable [phone] Tracy Covarrubias [facility] Unavailable Yogesh Peraza MD Unavailable [phone] Leeanne Pickard APRN WOOL BUYER Unavailable [phone] Anyi Ha MD Unavailable [phone] Leeanne Pickard APRN WOOL BUYER Primary Care Provider + Valdemar Thompson MD Unavailable Valdemar Thompson MD Unavailable Galo Yun RN Unavailable [phone] Jenni Camacho GRINDER SETUP OPERATOR WOOL BUYER Unavailable [facility] Unavailable Unavailable Isaac Hennessy PA-C Unavailable [phone] Yogesh Peraza MD Unavailable [phone] Yogesh Peraza MD Unavailable [phone] Wendy Francis MD Unavailable [phone] [facility] Unavail able Noemi Calle RN Unavailable Unavailable Wendy Francis MD Unavailable Carmela Palmer PA-C Primary Care Provider Ishmael Austin MD Unavailable Carmela Palmer PA-C Unavailable OgemawRomie perez PhD Unavailable [phone] Valdemar Thompson MD Unavailable Kera Gonzalez PA-C Unavailable [phone] Kera Gonzalez PA-C Unavailable [phone] Encounter Details Date Type Department Care Team (Late st Contact Info) Description 10/27/2022 [facility] [address] [place] [phone] Tasneem Bee Social History Tobacco Use [...] on file Legal Sex Female 4:09 AM PRICING DIRECTOR Gender Identity Not on file Sexual Orientation Not on file COVID-19 Exposure Response Date Recorded In the last 10 days, have yo u been in contact with someone who was confirmed or suspected to have Coronavirus/COVID-19? No / Unsure 10/14/2022 10:08 AM PRICING DIRECTOR documented as of this encounter Plan of Treatment Not on file documented as of this encounter Visit Diagnoses Not on filedocumented in this encounter Additional Health Concerns Infection Onset Date Last Indicated Resolved Time Rule Out Pertussis 01/15/2023 01/17/2023 8:11 AM CDT Rule Out COVID-19 01/17/2023 01/17/2023 02/07/2023 11:39 PM CDT documented as of this encounter Care Teams Rubber Attacher Relationship Specialty Start Date End Date Leeanne Pickard APRN WOOL BUYER PCP - General Family Medicine 07/27/22 11/09/23 Carmela Palmer PA-C [address] [place] [phone] PCP - General Family Medicine 12/13/23 Yogesh Lynch [address] [place] [address] [phone] Referring Physician Medical Oncology 07/22/21 Yogesh Peraza MD [facility] [place], [place] [id number] BMT Physician Transplant 08/25/21 Tracy Covarrubias [facility] Fire Information Officer BMT - Adult 08/30/21 06/15/24 Yogesh Peraza MD [address] [place], [place] [phone] Assigned Cancer Care Provider 10/24/21 Leeanne Pickard APRN WOOL BUYER Assigned PCP 12/10/21 10/04/23 Anyi Ha MD [address] [facility] [address] Assigned OBGYN Provider 03/19/22 Valdemar Thompson MD [address] [id number] [place], [place] [address] Cardiovascular Disease 07/27/22 Valdemar Thompson MD [address] [facility] [address] [place], [place] [address] Assigned Heart and Vascular Provider 08/06/22 05/19/23 Galo Yun RN Specialty Commissioner Of Conciliation BMT - Adult 09/16/22 06/06/23 Jenni Camacho APRN WOOL BUYER [address] [place] [address] [phone] Nurse Practitioner Hematology & Oncology 09/16/22 [facility] RN BMT Nurse Coordinator Transplant 06/07/23 11/19/23 Isaac Hennessy, PALavelleC [address] [place], [place] [phone] Assigned Heart and Vascular Provider 05/20/23 07/02/24 Yogesh Peraza MD [address] [place], [place] 9[address] Hematology 06/21/23 Yogesh Peraza MD [address] [place], [place] [phone] Hematology 06/21/23 Wendy Francis MD [address] [place] [id number] Physical Medicine and Rehabilitation 08/28/23 [facility] [address] [place], [place] [phone] Assigned PCP 10/05/23 01/01/24 Noemi Calle, RN BMT Nurse Coordinator Transplant 11/20/23 Wendy Francis MD [address] [place] [address] [id number] Assigned Neuroscience Provider 11/24/23 Ishmael Austin MD [address] [place] [address] [id number] Dermatology 12/15/23 Carmela Palmer PALavelleC [address] [place] [phone] Assigned PCP 01/02/24 Romie Smith, PhD [address] [place] [phone] Assigned Behavioral Health Provider 06/03/24 Valdemar Thompson MD [address] [facility] [address] [place], [place] 9[address] Assigned Heart and Vascular Provider 07/03/24 Kera Gonzalez PA-C Dermatology [address] [place] [address] [phone] Physician Surgical Supply Assistant Dermatology 11/08/24 Kera Gonzalez PA-C Dermatology [address] [place] [address] [phone] Assigned Dermatology Provider 01/31/25 documented as of this encounter
--- NOTE | 2025-04-06 21:52 | ED.GENADULT ---
HPI - General Adult General Chief complaint: Flank Pain Stated complaint: right side pain Time Seen by Provider: 04/06/25 21:52 History of Present Illness HPI narrative: Pt reports she developed right flank pain today and fever . Did take ibuprofen around 1930 hours. Pt has dx leukemia but is currently in remission. 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 54-year-old woman presenting to the emergency department with concern of right back/flank area pain. Pain began this afternoon. She has not had cough or fever. Noted to be quite warm during exam but she had been afebrile on presentation. Pain is pleuritic or when she is reaching with her right arm out. Sounds as though truncal rotation might bother her as well. No extremity pain or swelling. No abdominal pain otherwise. Current remission from leukemia. With repeat questioning she does reveal that she had pain in her back with an KS some years ago. She did have a stent placed. I also clarified that did actually have a fever this evening measured up to 103? at home Related Data Home Medications ?Medication ?Instructions ?Recorded ?Confirmed fluoxetine 40 mg capsule mg 07/19/22 10/29/24 trazodone 50 mg tablet mg 07/19/22 10/29/24 aspirin 81 mg tablet,delayed 81 mg PO QDAY 12/27/22 04/06/25 release rosuvastatin 40 mg tablet (Crestor) 40 mg PO QDAY 12/27/22 04/06/25 ezetimibe 10 mg tablet 10 mg PO QDAY 05/23/23 04/06/25 fluoxetine 20 mg capsule 20 mg PO DAILY 05/10/24 04/06/25 Allergies Allergy/AdvReac Type Severity Reaction Status Date / Time codeine Allergy Mild GI cramps Verified 04/06/25 23:58 hydroxyzine (From Vistaril) Allergy Mild unsure had Verified 04/06/25 23:58 with demerol meperidine (From Demerol) Allergy Mild Verified 04/06/25 23:58 Review of Systems Status of ROS: Reports: 6 or more systems reviewed and unremarkable except as noted in History and below [facility] Medical History Heart attack ?I21.9 - Acute myocardial infarction, unspecified (ICD-10) Premenstrual dysphoric disorder (03/15/12) ?F32.81 - Premenstrual dysphoric disorder (ICD-10) depression (03/15/12) ?F53.0 - depression (ICD-10) Leukemia ?C95.90 - Leukemia, unspecified not having achieved remission (ICD-10) Multiple gestation (2005) ?O30.90 - Multiple gestation, unspecified, unspecified trimester (ICD-10) Surgical History Status post tubal ligation (03/15/12) ?Z98.51 - Tubal ligation status (ICD-10) History of nasal septoplasty (03/15/12) ?Z98.890 - Other specified postprocedural states (ICD-10) History of cervical cerclage (03/15/12) ?Z98.890 - Other specified postprocedural states (ICD-10) S/P trigger finger release (12/28/22) ?Z98.890 - Other specified postprocedural states (ICD-10) History of sinus surgery ?Z98.890 - Other specified postprocedural states (ICD-10) History of tonsillectomy ?Z90.89 - Acquired absence of other organs (ICD-10) Hx of appendectomy (08/2005) ?Z90.49 - Acquired absence of other specified parts of digestive tract (ICD-10) Previous section ?Z98.891 - History of uterine scar from previous surgery (ICD-10) S/P arthroscopy of left shoulder (03/19/12) ?Z98.890 - Other specified postprocedural states (ICD-10) Social History Smoking Status: Former smoker How often do you have a drink containing alcohol: never AUDIT-C Alcohol total score: 0 Non-prescribed substance use: denies use Exam Narrative: Exam Narrative: Pleasant. A little distracted. Breathing easily. Lungs are clear. Heart in elevated rate and regular rhythm. Pain to palpation the right low paraspinal musculature and little more lateral. Abdomen is soft and nontender. Extremities are well perfused. Const: Vital Signs, click to edit/add: Vital Signs - 24 hr 04/06/25 21:32 04/06/25 22:07 04/06/25 22:47 Temperature 98.6 F 99.3 F Pulse Rate 78 Pulse Rate [Pulse Oximeter] 100 Respiratory Rate 16 18 Blood Pressure 98/59 L Blood Pressure [Ri ght Upper Arm] 94/61 Pulse Oximetry 96 95 Oxygen Delivery Me thod Room Air 04/06/25 22:48 04/06/25 22:49 04/06/25 23:00 Temperature Pulse Rate 80 79 82 Pulse Rate [Pulse Oximeter] Respiratory Rate 20 20 16 Blood Pressure 96/55 L Blood Pressure [Ri ght Upper Arm] Pulse Oximetry 94 94 94 Oxygen Delivery Me thod 04/06/25 23:01 04/06/25 23:15 04/06/25 23:16 Temperature Pulse Rate 82 81 83 Pulse Rate [Pulse Oximeter] Respiratory Rate 16 16 18 Blood Pressure 97/55 L 96/55 L Blood Pressure [Ri ght Upper Arm] Pulse Oximetry 94 94 94 Oxygen Delivery Me thod 04/06/25 23:30 04/06/25 23:30 04/06/25 23:31 Temperature Pulse Rate 83 Pulse Rate [Pulse Oximeter] Respiratory Rate 18 18 Blood Pressure 93/52 L Blood Pressure [Ri ght Upper Arm] Pulse Oximetry 94 94 Oxygen Delivery Me thod Documenting provider has reviewed patient's vital signs: yes Course Vital Signs Vital signs: Initial Vital Signs Temperature 98.6 F 04/06/25 21:32 Temperature Source Oral 04/06/25 21:32 Pulse Rate 100 04/06/25 21:32 Respiratory Rate 16 04/06/25 21:32 Blood Pressure 94/61 04/06/25 21:32 Blood Pressure Mean 72 04/06/25 21:32 Blood Pressure Position Sitting 04/06/25 21:32 Pulse Oximetry 96 04/06/25 21:32 Oxygen Delivery Method Room Air 04/06/25 21:32 Vital Signs Temperature 98.6 F 04/06/25 21:32 Pulse Rate 100 04/06/25 21:32 Respiratory Rate 16 04/06/25 21:32 Blood Pressure 94/61 04/06/25 21:32 Pulse Oximetry 96 04/06/25 21:32 Oxygen Delivery Method Room Air 04/06/25 21:32 Temperature 99.3 F 04/06/25 22:07 Pulse Rate 73 04/07/25 01:10 Respiratory Rate 16 04/07/25 01:10 Blood Pressure 106/63 04/07/25 01:10 Pulse Oximetry 95 04/07/25 01:10 Oxygen Delivery Method Room Air 04/06/25 21:32 Medications Administered Medications: Discontinued Medications Generic Name Dose Route Start Last Admin Trade Name Jaelyn PRN Reason Stop Dose Admin Sodium Chloride 500 mls @ 500 mls/hr 04/06/25 22:07 04/06/25 22:48 0.9 % Sodium Chloride 500 Ml IV 04/06/25 23:06 Infused .Q1H ONE Infusion Ceftriaxone Sodium 1 gm/ 100 mls @ 200 mls/hr 04/07/25 00:51 04/07/25 01:38 Sodium Chloride IVPB 04/07/25 00:52 Infused ONCE ONE Infusion Ketorolac Tromethamine 15 mg 04/06/25 22:07 04/06/25 22:15 Ketorolac 15 Mg/Ml Inj IVP 04/06/25 22:08 15 mg ONCE ONE Administration Lidocaine 1 patch 04/06/25 22:09 04/06/25 22:15 Lidocaine 5% Patch TRANSDERMA 04/06/25 22:10 1 patch ONCE ONE Administration Protocol Morphine Sulfate 4 mg 04/07/25 00:49 04/07/25 01:03 Morphine 4 Mg/Ml Inj IVP 04/07/25 00:50 4 mg ONCE ONE Administration Medical Decision Making MDM Narrative Medical decision making narrative: Differential includes pleuritis, pneumonia, pulmonary embolus, KS, biliary colic, costochondritis. Does appear to have chest wall pain of some sort; it is reproducible. History though is concerning for potential other as noted above. Initial EKG independent reviewed by me does appear to show some equivocal changes or possible subtle ST depression in inferior lateral leads. This is compared to an EKG from July of 2022. During COVID was treated in [place] with stent. Follow-up cardiology care has been through [facility]. I have not been able to obtain a postprocedural EKG at this point. Chest x-ray independently reviewed by me looks to show some haziness possible infiltrate in the right mid lung area. Radiology over-read below INDICATION: Elevated temperature, pleuritic right lower back pain. TECHNIQUE: Chest 2 views. COMPARISON: None. FINDINGS: Cardiovascular and mediastinum: Heart size is normal. Unremarkable mediastinum. Lungs and pleural spaces: Patchy opacity in the right mid lung on AP view which is not well seen on the lateral view. Left lung is clear. Lucency in the right apex. No pleural effusion or left-sided pneumothorax. Bones and soft tissues: Surgical clips in the upper abdomen. Multilevel degenerative changes of the spine. IMPRESSION: 1. Patchy opacity in the right mid lung on AP view which is not well seen on the lateral view. Differential includes atelectasis, aspiration and/or pneumonia. 2. Lucency in the right apex which may reflect a bulla, less likely a pneumothorax. Recommend a CT of the chest for further evaluation. Dictated by Perry Cherry MD @ 04/06/2025 10:48:37 PM Unfortunately labs return with mildly elevated troponin along with mild elevation in D-dimer. I do not know if this is strain, stress. Though with changes in EKG I felt further imaging was warranted. And proceeded CT imaging of the chest. By my independent review there definitely appears to be infiltrate in the right upper lung. INDICATION: Right-sided mid back pain. Fever. TECHNIQUE: Multiplanar CT pulmonary angiogram was performed after the administration of 95 mL of Isovue 370 intravenous contrast. COMPARISON: Chest radiographs 04/06/2025. FINDINGS: Lower neck: The visualized thyroid is unremarkable. Cardiovascular: Contrast opacification of the pulmonary arterial tree is adequate. Heart size is normal. Thoracic aorta and pulmonary artery are normal in caliber. No significant atherosclerotic calcifications of the aortic arch. No significant coronary arterial calcifications. No large central pulmonary embolus. Mediastinum and lymph nodes: Unremarkable. No pathologic mediastinal or hilar lymphadenopathy by size criteria. Lungs: Azygous fissure, normal anatomic variant. Patchy right upper lobe consolidation posteriorly. Dependent atelectasis. Linear bandlike opacification of the lung bases bilaterally, likely subsegmental atelectasis and/or scarring. Trachea: Trachea remains patent and midline. Mild diffuse peribronchial wall thickening. Pleura: No pleural effusions or pneumothorax. Chest wall: Unremarkable. Prominent axillary lymph nodes that do not meet size criteria for lymphadenopathy. Bones: No acute osseous abnormalities. Mild degenerative changes of the thoracic spine. Upper abdomen: No acute findings in the visualized upper abdomen. No reflux of contrast material into the IVC. 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 IMPRESSION: 1. No pulmonary embolus. No CT evidence of right heart strain. 2. Findings compatible with a right upper lobe pneumonia. Please note that all CT scans at this facility use dose modulation, iterative reconstruction, and/or weight-based dosing when appropriate to reduce radiation dose to as low as reasonably achievable. Dictated by Gerson Michael MD @ 04/07/2025 12:11:31 AM I did repeat this troponin as well as EKG. Troponin is flat. EKG maybe subtly improved. Suspect there may have been some strain contributing to leak and EKG findings. I did discuss this case with Cardiology on-call. Overall reassured without further recommendations. Did receive a dose of Rocephin here in the emergency department. Stable vitals without further developments during time of observation air sampling and monitoring in the emergency department. See patient discharge plan for further discussion Can take up to 800 mg of ibuprofen per dose. You received Rocephin in the IV to start with. Also prescribing some Heu[place] from [facility] for pain. Contains hydrocodone, an opiate and acetaminophen. And from [facility] doxycycline as your antibiotic; please take a dose tonight. Protect from sun during course of doxycycline. Return for uncontrolled pain, uncontrolled fever, persistent increasing shortness of breath Medical Records Medical records reviewed: Yes I reviewed the patient's medical records Lab Data Lab results reviewed: Yes I reviewed the patient's lab results Labs: Lab Results 04/06/25 04/06/25 04/06/25 Range/Units 21:51 22:02 23:54 WBC 4.76 (4.50-11.00) K/uL RBC 3.47 L (4.00-5.20) m/uL Hgb 11.5 L (12.0-16.0) gm/dL Hct 34.9 (33.0-51.0) % MCV 101 H (80-100) fL MCH 33 (26-34) pg MCHC 33 (32-36) gm/dL RDW Coeff of Andreas 13.5 (11.5-15.5) % Plt Count 109 L (140-440) K/uL Neut % (Auto) 72.3 H (42.0-72.0) % Lymph % (Auto) 14.5 L (20-44) % Gilchrist % (Auto) 12.4 H (0.0-11.0) % Eos % (Auto) 0.6 (0.0-7.0) % Baso % (Auto) 0.0 (0.0-3.0) % Neut # (Auto) 3.40 (1.7-7.0) K/uL Lymph # (Auto) 0.70 L (0.90-2.90) K/uL Gilchrist # (Auto) 0.60 (0.00-0.90) K/UL Eos # (Auto) 0.03 (0.00-0.50) K/uL Baso # (Auto) 0.00 (0.00-0.30) K/uL Abs Immat Gran (auto) 0.01 (0.00-0.30) K/uL Imm/Tot Granulo (auto) 0.2 % D-Dimer Quant (PE/DVT) 0.80 H (0.00-0.50) ug/ml Sodium 130 L (135-149) mmol/L Potassium 4.4 (3.6-5.1) mmol/L Chloride 101 (96-114) mmol/L Carbon Dioxide 23 (20-32) mmol/L Anion Gap 6 L (7-15) mEq/L BUN 25 (7-30) mg/dL Creatinine 0.9 (0.5-1.5) mg/dL Estimated Creat Clear 66.12 Estimated GFR 76 ml/min Glucose 119 H (60-115) mg/dL Calcium 8.6 (8.4-10.6) mg/dL Total Bilirubin 1.0 (0.1-1.5) mg/dL Direct Bilirubin 0.0 (0.0-0.5) mg/dL AST 45 H (12-35) U/L ALT 39 H (4-35) U/L Alkaline Phosphatase 83 (40-150) U/L Troponin I 0.10 H* (0.01-0.04) ng/mL C-Reactive Protein 1.6 H (0.5-1.0) mg/dL NT-Pro-B Natriuret Pep 436 H (See Note) pg/mL Total Protein 7.4 (6.0-8.3) g/dL Albumin 4.1 (3.3-5.0) g/dL Urine Color Yellow (Yellow) Urine Appearance Clear (Clear) Urine pH 8.5 (5.0-8.5) Ur Specific [place] 1.015 (1.000-1.030) Urine Protein 1+ A (Negative) Urine Glucose (UA) Negative (Negative) Urine Ketones Negative (Negative) Urine Blood Negative (Negative) Urine Nitrite Negative (Negative) Urine Bilirubin Negative (Negative) Urine Urobilinogen 2.0 A (0.2-1.0) Ur Leukocyte Esterase Negative (Negative) Urine RBC 0-2 (0-2) Urine WBC 0-2 (0-5) Ur Squamous Epith Cells None (None-Few) Urine Bacteria None (None) POC Troponin I 0.03 (0.01-0.04) ng/ml 04/07/25 Range/Units 00:10 WBC (4.50-11.00) K/uL RBC (4.00-5.20) m/uL Hgb (12.0-16.0) gm/dL Hct (33.0-51.0) % MCV (80-100) fL MCH (26-34) pg MCHC (32-36) gm/dL RDW Coeff of Andreas (11.5-15.5) % Plt Count (140-440) K/uL Neut % (Auto) (42.0-72.0) % Lymph % (Auto) (20-44) % Gilchrist % (Auto) (0.0-11.0) % Eos % (Auto) (0.0-7.0) % Baso % (Auto) (0.0-3.0) % Neut # (Auto) (1.7-7.0) K/uL Lymph # (Auto) (0.90-2.90) K/uL Gilchrist # (Auto) (0.00-0.90) K/UL Eos # (Auto) (0.00-0.50) K/uL Baso # (Auto) (0.00-0.30) K/uL Abs Immat Gran (auto) (0.00-0.30) K/uL Imm/Tot Granulo (auto) % D-Dimer Quant (PE/DVT) (0.00-0.50) ug/ml Sodium (135-149) mmol/L Potassium (3.6-5.1) mmol/L Chloride (96-114) mmol/L Carbon Dioxide (20-32) mmol/L Anion Gap (7-15) mEq/L BUN (7-30) mg/dL Creatinine (0.5-1.5) mg/dL Estimated Creat Clear Estimated GFR ml/min Glucose (60-115) mg/dL Calcium (8.4-10.6) mg/dL Total Bilirubin (0.1-1.5) mg/dL Direct Bilirubin (0.0-0.5) mg/dL AST (12-35) U/L ALT (4-35) U/L Alkaline Phosphatase (40-150) U/L Troponin I 0.09 H* (0.01-0.04) ng/mL C-Reactive Protein (0.5-1.0) mg/dL NT-Pro-B Natriuret Pep (See Note) pg/mL Total Protein (6.0-8.3) g/dL Albumin (3.3-5.0) g/dL Urine Color (Yellow) Urine Appearance (Clear) Urine pH (5.0-8.5) Ur Specific [place] (1.000-1.030) Urine Protein (Negative) Urine Glucose (UA) (Negative) Urine Ketones (Negative) Urine Blood (Negative) Urine Nitrite (Negative) Urine Bilirubin (Negative) Urine Urobilinogen (0.2-1.0) Ur Leukocyte Esterase (Negative) Urine RBC (0-2) Urine WBC (0-5) Ur Squamous Epith Cells (None-Few) Urine Bacteria (None) POC Troponin I (0.01-0.04) ng/ml Discharge Plan Discharge Clinical Impression: Pneumonia, Pleuritic chest pain, Elevated troponin I level Patient Disposition: Home w/ Parent or Adult Condition: Stable Additional Instructions: Stay well-hydrated. Can take up to 800 mg of ibuprofen per dose. You received Rocephin in the IV to start with. Also prescribing some Heu[place] from [facility] for pain. Contains hydrocodone, an opiate and acetaminophen. And from [facility] doxycycline as your antibiotic; please take a dose tonight. Protect from sun during course of doxycycline. Return for uncontrolled pain, uncontrolled fever, persistent increasing shortness of breath. Prescriptions: No Action rosuvastatin [Crestor] 40 mg tablet 40 mg PO QDAY aspirin 81 mg tablet,delayed release (DR/EC) 81 mg PO QDAY ezetimibe 10 mg tablet 10 mg PO QDAY fluoxetine 20 mg capsule 20 mg PO DAILY fluoxetine 40 mg capsule trazodone 50 mg tablet Follow Up/Referrals: Provider,Not a Local [Primary Care Provider, Family Practice] Stand Alone Forms: [employer] Info Instructions
[2025-04-06 21:55] LABS: Appearance Urine Clear (Clear)
--- NOTE | 2025-04-06 22:09 | CRLHL7_ITS ---
For Patients: As a result of the Century Cures Act, medical imaging exams and procedure reports are released immediately into your electronic medical record. You may view this report before your referring provider. If you have questions, please contact your health care provider. INDICATION: Elevated temperature, pleuritic right lower back pain. TECHNIQUE: Chest 2 views. COMPARISON: None. FINDINGS: Cardiovascular and mediastinum: Heart size is normal. Unremarkable mediastinum. Lungs and pleural spaces: Patchy opacity in the right mid lung on AP view which is not well seen on the lateral view. Left lung is clear. Lucency in the right apex. No pleural effusion or left-sided pneumothorax. Bones and soft tissues: Surgical clips in the upper abdomen. Multilevel degenerative changes of the spine. IMPRESSION: 1. Patchy opacity in the right mid lung on AP view which is not well seen on the lateral view. Differential includes atelectasis, aspiration and/or pneumonia. 2. Lucency in the right apex which may reflect a bulla, less likely a pneumothorax. Recommend a CT of the chest for further evaluation. Dictated by Perry Cherry MD @ 04/06/2025 10:48:37 PM (Electronically Signed)
[2025-04-06] MEDS: LIDOCAINE 5% PATCH 1 PATCH TRANSDERMA (22:15)
[2025-04-06] MEDS: 0.9 % SODIUM CHLORIDE 500 ML 500 ML IV (22:15)
[2025-04-06 22:16] LABS: Hematocrit 34.9 % (33.0-51.0); Hemoglobin* 11.5 gm/dL (12.0-16.0); Immature Granulocytes Abs Auto 0.01 K/uL (0.00-0.30); Immature Granulocytes Pct Auto 0.2 %; Mean Corpuscular HGB Conc 33 gm/dL (32-36); Mean Corpuscular Hemoglobin 33 pg (26-34); Mean Corpuscular Volume 101 fL (80-100); RDW Coefficient of Variation % 13.5 % (11.5-15.5); Red Blood Count 3.47 m/uL (4.00-5.20); White Blood Count* 4.76 K/uL (4.50-11.00)
[2025-04-06 22:18] LABS: Lymphocytes Absolute Auto 0.70 K/uL (0.90-2.90); Slide Review Reflex No
[2025-04-06 22:26] LABS: Albumin* 4.1 g/dL (3.3-5.0); Chloride* 101 mmol/L (96-114)
[2025-04-06 22:27] LABS: Potassium* 4.4 mmol/L (3.6-5.1); Sodium* 130 mmol/L (135-149)
[2025-04-06 22:29] LABS: Blood Urea Nitrogen* 25 mg/dL (7-30); Creatinine* 0.9 mg/dL (0.5-1.5); Est. Creatinine Clearance* 66.12; Estimated Glomerular Filt Rate 76 ml/min
[2025-04-06 22:30] LABS: Alanine Aminotransferase* 39 U/L (4-35); Alkaline Phosphatase* 83 U/L (40-150); Anion Gap 6 mEq/L (7-15); Aspartate Amino Transferase* 45 U/L (12-35); Bilirubin Direct* 0.0 mg/dL (0.0-0.5); Bilirubin Total* 1.0 mg/dL (0.1-1.5); Calcium* 8.6 mg/dL (8.4-10.6); Carbon Dioxide* 23 mmol/L (20-32); Glucose* 119 mg/dL (60-115); Total Protein* 7.4 g/dL (6.0-8.3)
[2025-04-06 22:31] LABS: D Dimer Quantitative* 0.80 ug/ml (0.00-0.50)
[2025-04-06 22:43] LABS: NT Pro B Type NatriureticPept* 436 pg/mL (See Note)
--- NOTE | 2025-04-06 23:27 | CRLHL7_ITS ---
For Patients: As a result of the Century Cures Act, medical imaging exams and procedure reports are released immediately into your electronic medical record. You may view this report before your referring provider. If you have questions, please contact your health care provider. INDICATION: Right-sided mid back pain. Fever. TECHNIQUE: Multiplanar CT pulmonary angiogram was performed after the administration of 95 mL of Isovue 370 intravenous contrast. COMPARISON: Chest radiographs 04/06/2025. FINDINGS: Lower neck: The visualized thyroid is unremarkable. Cardiovascular: Contrast opacification of the pulmonary arterial tree is adequate. Heart size is normal. Thoracic aorta and pulmonary artery are normal in caliber. No significant atherosclerotic calcifications of the aortic arch. No significant coronary arterial calcifications. No large central pulmonary embolus. Mediastinum and lymph nodes: Unremarkable. No pathologic mediastinal or hilar lymphadenopathy by size criteria. Lungs: Azygous fissure, normal anatomic variant. Patchy right upper lobe consolidation posteriorly. Dependent atelectasis. Linear bandlike opacification of the lung bases bilaterally, likely subsegmental atelectasis and/or scarring. Trachea: Trachea remains patent and midline. Mild diffuse peribronchial wall thickening. Pleura: No pleural effusions or pneumothorax. Chest wall: Unremarkable. Prominent axillary lymph nodes that do not meet size criteria for lymphadenopathy. Bones: No acute osseous abnormalities. Mild degenerative changes of the thoracic spine. Upper abdomen: No acute findings in the visualized upper abdomen. No reflux of contrast material into the IVC. 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 IMPRESSION: 1. No pulmonary embolus. No CT evidence of right heart strain. 2. Findings compatible with a right upper lobe pneumonia. Please note that all CT scans at this facility use dose modulation, iterative reconstruction, and/or weight-based dosing when appropriate to reduce radiation dose to as low as reasonably achievable. Dictated by Gerson Michael MD @ 04/07/2025 12:11:31 AM (Electronically Signed)
[2025-04-07 00:50] LABS: Troponin, Point-of-Care* 0.03 ng/ml (0.01-0.04)
[2025-04-07] MEDS: cefTRIAXone 1 GM in 0.9 % SODIUM CHLORIDE Mini-bag 100 ML IVPB (01:02)
[2025-04-07] MEDS: MORPHINE 4 MG/ML INJ IVP (01:03)
[2025-04-07 01:08] VITALS: PULSE 76; RESP 16; O2SAT 98
[2025-04-07 01:10] VITALS: BP 106/63; PULSE 73; RESP 16; O2SAT 95
== END 2025-04-07 01:57 | disposition home or self-care (01) ==
PROVIDERS: Emergency Provider Family Medicine
DX: J18.9 Pneumonia, unspecified organism (principal); R07.89 Other chest pain; R79.89 Other specified abnormal findings of blood chemistry
CPT/HCPCS: 36415; 71046; 71275; 80048; 80076; 81001; 83880; 84484; 85025; 85379; 86140; 93005; 94761; 96365; 96375; 99284; 99285; A9270; J0696; J1885; J2270; J7030; Q9967